=== PATIENT | male | born 1975 | race Caucasian/White ===

== ENCOUNTER 2022-04-03 09:39 | Inpatient (IN) | payer OTHER ==
[~2022-04-03] VITALS: Ht 177.8 cm; Wt 108.9 kg
[2022-04-03] MEDS ORDERED: ZOSYN 3.375GM +NS 50ML IVPB ONE (10:30)
[2022-04-03] MEDS ORDERED: 0.9%NACL 1000ML 1,000 ML IV ONE ×2 (10:30→11:30)
[2022-04-03 10:45] LABS: BASOPHILS % (AUTO) 0.3 % (0.0-5.0); EOSINOPHILS % (AUTO) 0.6 % (0.0-8.0); HEMATOCRIT 45.4 % (42-54); LYMPHOCYTES % (AUTO) 6.3 % (21.0-51.0); MEAN CORPUSCULAR HEMOGLOBIN 28.6 pg (27.0-33.0); MEAN CORPUSCULAR HGB CONC 34.8 g/dL (32.0-36.0); MEAN CORPUSCULAR VOLUME 82.2 fL (79-99); MONOCYTES % (AUTO) 7.5 % (3.0-13.0); NEUTROPHILS % (AUTO) 84.6 % (40.0-77.0); PLATELET COUNT (AUTO) 304 K/uL (130-400); RED BLOOD CELL COUNT(AUTO) 5.52 MIL/uL (4.50-6.20); RED CELL DISTRIBUTION WIDTH 11.9 % (11.0-15.5); WHITE BLOOD COUNT (AUTO) 22.5 K/uL (4.8-10.8)
[2022-04-03 10:56] LABS: CREATININE 0.8 mg/dL (0.5-1.5); POTASSIUM 4.1 mmol/L (3.5-5.1)
[2022-04-03] MEDS ORDERED: MORPHINE 4 MG SYG IM ONE (11:00)
[2022-04-03] MEDS ORDERED: MORPHINE 4 MG SYG IVP ONE (11:00)
[2022-04-03] MEDS ORDERED: ONDANSETRON 4MG INJ IVP ONE ×2 (11:00)
[2022-04-03 11:01] LABS: ALBUMIN 2.5 g/dL (3.5-5.0); TOTAL PROTEIN, SERUM 7.4 g/dL (6.0-8.3)
[2022-04-03 12:02] LABS: APPEARANCE,URINE CLOUDY (CLEAR); BILIRUBIN,URINE NEGATIVE (NEGATIVE); COLOR,URINE YELLOW (YELLOW); GLUCOSE, URINE (UA) >=1000 mg/dL (NEGATIVE); KETONES,URINE 10 mg/dL (NEGATIVE); LEUKOCYTE ESTERASE ,URINE 500 Leu/uL (NEGATIVE); NITRATE,URINE NEGATIVE (NEGATIVE); OCCULT BLOOD,URINE SMALL (NEGATIVE); PROTEIN,URINE 50 mg/dL (NEGATIVE); UROBILINOGEN,URINE 0.2 mg/dL (0.2-1.0)
[2022-04-03 12:12] LABS: BACTERIA,URINE MOD /HPF (None Seen); MUCUS,URINE RARE LPF (None Seen); RBC,URINE TNTC /HPF (0-1); SQUAMOUS EPITHELIAL CELL,UR RARE /HPF (0-2); WBC,URINE TNTC /HPF (0-1); YEAST,URINE BUDDING FEW /HPF (None Seen)
[2022-04-03] MEDS ORDERED: IOHEXOL-350 50ML VIAL IV ONE (12:12)
[2022-04-03] MEDS ORDERED: AMLODIPINE 5 MG TAB PO SCH (12:30)
[2022-04-03] MEDS ORDERED: ACETAMINOPHEN 500 MG TABLET PO PRN (12:30)
[2022-04-03] MEDS ORDERED: VANCOMYCIN PROTOCOL PER PHARMACY IV SCH (12:30)
[2022-04-03] MEDS ORDERED: VANCOMYCIN 2GM/500 ML BAG 500 ML IV ONE (12:30)
[2022-04-03] MEDS ORDERED: ONDANSETRON 4MG INJ IVP PRN (12:30)
[2022-04-03] MEDS ORDERED: IPRATROPIUM 0.5 MG/2.5 ML INH IH PRN (12:30)
[2022-04-03] MEDS: BUDESONIDE 0.5 MG/2 ML INH IH SCH ×2 (12:32→23:13)
[2022-04-03] MEDS: CEFEPIME HCL 2 GM VIAL IVP SCH ×2 (12:33→23:14)
[2022-04-03 12:36] LABS: INR 1.02 (0.85-1.15); PROTHROMBIN TIME 11.1 SEC (9.6-11.6)
[2022-04-03 12:37] LABS: PARTIAL THROMBOPLASTIN TIME 28.2 SEC (26.3-35.5)
[2022-04-03 12:42] LABS: HEMOGLOBIN A1C 11.7 % (4.0-6.0)
[2022-04-03] MEDS: INSULIN HUMULIN R 100 UNIT/ML 3ML SQ SCH ×2 (12:43→17:57)
[2022-04-03] MEDS ORDERED: COMPOUND IV REFRIGERATED 1 EACH IVSOLN MISC PRN (13:00)
[2022-04-03] MEDS ORDERED: MAGNESIUM 2GM PREMIX 50ML 50 ML IV SCH (13:30)
[2022-04-03] MEDS ORDERED: INSULIN HUMULIN R 100 UNIT/ML 3ML SQ ONE (14:00)
[2022-04-03] MEDS ORDERED: METRONIDAZOLE 500MG/100ML BAG 100 ML IVPB SCH (15:00)
[2022-04-03] MEDS: MORPHINE 2 MG SYG IVP PRN (15:10)
[2022-04-03] MEDS: 0.9%NACL 1000ML 1,000 ML IV SCH (15:15)
[2022-04-03 16:00] VITALS: BP 181/99
[2022-04-03 16:30] VITALS: BP 158/84
[2022-04-03 20:35] VITALS: BP 150/74
[2022-04-03] MEDS: AMLODIPINE 5 MG TAB PO SCH (20:47)
[2022-04-03] MEDS ORDERED: INSULIN GLARGINE 100 UNITS/ML 10 ML VIAL SQ SCH (21:00)
[2022-04-03] MEDS: KETOROLAC 15MG/ML VIAL (15MG/ML) IV PRN (23:14)
[2022-04-04] MEDS ORDERED: VANCOMYCIN 1.5 GM/250 ML BAG 250 ML IV SCH
[2022-04-04 00:04] VITALS: BP 151/71
[2022-04-04] MEDS: INSULIN HUMULIN R 100 UNIT/ML 3ML SQ SCH ×8 (01:15→21:11)
[2022-04-04 04:10] VITALS: BP 158/76
[2022-04-04] MEDS: 0.9%NACL 1000ML 1,000 ML IV SCH ×2 (05:37→15:10)
[2022-04-04 06:18] LABS: BASOPHILS % (AUTO) 0.2 % (0.0-5.0); EOSINOPHILS % (AUTO) 0.7 % (0.0-8.0); HEMATOCRIT 41.2 % (42-54); LYMPHOCYTES % (AUTO) 9.8 % (21.0-51.0); MEAN CORPUSCULAR HEMOGLOBIN 27.9 pg (27.0-33.0); MEAN CORPUSCULAR HGB CONC 33.7 g/dL (32.0-36.0); MEAN CORPUSCULAR VOLUME 82.7 fL (79-99); MONOCYTES % (AUTO) 8.4 % (3.0-13.0); NEUTROPHILS % (AUTO) 80.1 % (40.0-77.0); PLATELET COUNT (AUTO) 278 K/uL (130-400); RED BLOOD CELL COUNT(AUTO) 4.98 MIL/uL (4.50-6.20); RED CELL DISTRIBUTION WIDTH 12.1 % (11.0-15.5); WHITE BLOOD COUNT (AUTO) 16.8 K/uL (4.8-10.8)
[2022-04-04] MEDS: BUDESONIDE 0.5 MG/2 ML INH IH SCH ×2 (06:42→18:49)
[2022-04-04 06:45] LABS: CREATININE 0.7 mg/dL (0.5-1.5); MAGNESIUM 1.8 mg/dL (1.80-2.40); POTASSIUM 3.8 mmol/L (3.5-5.1); TOTAL PROTEIN, SERUM 6.1 g/dL (6.0-8.3)
[2022-04-04 08:00] VITALS: BP 152/74
[2022-04-04] MEDS: PANTOPRAZOLE 40 MG TAB DR PO SCH (09:21)
[2022-04-04] MEDS: Vitamin B Complex/Vit C/Folic Acid PO SCH (09:21)
[2022-04-04] MEDS: AMLODIPINE 5 MG TAB PO SCH ×2 (09:22→21:09)
[2022-04-04] MEDS: KETOROLAC 15MG/ML VIAL (15MG/ML) IV PRN (09:32)
[2022-04-04] MEDS: CEFEPIME HCL 2 GM VIAL IVP SCH ×2 (10:30→21:10)
[2022-04-04 11:30] VITALS: BP 142/74
[2022-04-04] MEDS: VANCOMYCIN 1.75 GM/250 ML BAG 250 ML IV SCH (15:03)
[2022-04-04 16:00] VITALS: BP 199/85
[2022-04-04] MEDS: HYDRALAZINE 20MG/ML VIAL IV PRN (18:08)
[2022-04-04 20:00] VITALS: BP 163/78
[2022-04-04] MEDS: INSULIN GLARGINE 100 UNITS/ML 10 ML VIAL SQ SCH (21:10)
[2022-04-04] MEDS: MORPHINE 2 MG SYG IVP PRN (21:30)
[2022-04-05] VITALS (20 sets, daily range): BP systolic 92–179; BP diastolic 56–97
[2022-04-05] MEDS: VANCOMYCIN 1.75 GM/250 ML BAG 250 ML IV SCH ×2 (01:03→15:47)
[2022-04-05] MEDS: 0.9%NACL 1000ML 1,000 ML IV SCH ×2 (03:20→17:50)
[2022-04-05] MEDS: MORPHINE 2 MG SYG IVP PRN (03:28)
[2022-04-05] MEDS: HYDRALAZINE 20MG/ML VIAL IV PRN (03:28)
[2022-04-05 04:24] LABS: BASOPHILS % (AUTO) 0.3 % (0.0-5.0); EOSINOPHILS % (AUTO) 0.6 % (0.0-8.0); HEMATOCRIT 40.1 % (42-54); LYMPHOCYTES % (AUTO) 12.4 % (21.0-51.0); MEAN CORPUSCULAR HEMOGLOBIN 28.4 pg (27.0-33.0); MEAN CORPUSCULAR HGB CONC 34.4 g/dL (32.0-36.0); MEAN CORPUSCULAR VOLUME 82.5 fL (79-99); MONOCYTES % (AUTO) 10.8 % (3.0-13.0); NEUTROPHILS % (AUTO) 74.9 % (40.0-77.0); PLATELET COUNT (AUTO) 288 K/uL (130-400); RED BLOOD CELL COUNT(AUTO) 4.86 MIL/uL (4.50-6.20)
[2022-04-05 05:03] LABS: ALBUMIN 1.9 g/dL (3.5-5.0); CREATININE 0.6 mg/dL (0.5-1.5); POTASSIUM 3.5 mmol/L (3.5-5.1); TOTAL PROTEIN, SERUM 6.3 g/dL (6.0-8.3)
[2022-04-05] MEDS: INSULIN HUMULIN R 100 UNIT/ML 3ML SQ SCH ×9 (06:35→20:48)
[2022-04-05] MEDS: BUDESONIDE 0.5 MG/2 ML INH IH SCH ×2 (06:42→18:39)
[2022-04-05] MEDS: PANTOPRAZOLE 40 MG TAB DR PO SCH (08:23)
[2022-04-05] MEDS: Vitamin B Complex/Vit C/Folic Acid PO SCH (08:23)
[2022-04-05] MEDS: AMLODIPINE 5 MG TAB PO SCH ×2 (09:00→19:58)
[2022-04-05] MEDS: CEFEPIME HCL 2 GM VIAL IVP SCH (12:48)
[2022-04-05] MEDS ORDERED: FAMOTIDINE 20MG VIAL IV ONE (16:03)
[2022-04-05] MEDS ORDERED: MIDAZOLAM HCL 1 MG/ML 2ML VIAL ONE ×2 (16:06→17:14)
[2022-04-05] MEDS ORDERED: PROPOFOL 10 MG/ML 20ML VIAL IV ONE (16:07)
[2022-04-05] MEDS ORDERED: GLYCOPYRROLATE 1 MG/5 ML SYRINGE ONE (16:07)
[2022-04-05] MEDS ORDERED: ROCURONIUM 10MG/1ML SYR 10 MG/ML ML ONE (16:07)
[2022-04-05] MEDS ORDERED: FENTANYL CITRATE PF 50 MCG/1 ML 2ML VIAL ONE (16:07)
[2022-04-05] MEDS ORDERED: NEOSTIGMINE 5MG/5ML SYR IV ONE (16:44)
[2022-04-05] MEDS ORDERED: MEPERIDINE-PF 25 MG/ML SYG ONE (17:09)
[2022-04-05] MEDS: LISINOPRIL 5 MG TABLET PO SCH (19:58)
[2022-04-05] MEDS: KETOROLAC 15MG/ML VIAL (15MG/ML) IV PRN (20:02)
[2022-04-05] MEDS: INSULIN GLARGINE 100 UNITS/ML 10 ML VIAL SQ SCH (20:47)
[2022-04-06] VITALS: BP 140/76
[2022-04-06] MEDS: CEFEPIME HCL 2 GM VIAL IVP SCH ×3 (00:18→15:01)
[2022-04-06 04:00] VITALS: BP 128/64
[2022-04-06 05:43] LABS: BASOPHILS % (AUTO) 0.5 % (0.0-5.0); EOSINOPHILS % (AUTO) 1.1 % (0.0-8.0); HEMATOCRIT 41.2 % (42-54); MEAN CORPUSCULAR HEMOGLOBIN 28.4 pg (27.0-33.0); MEAN CORPUSCULAR HGB CONC 34.7 g/dL (32.0-36.0); MEAN CORPUSCULAR VOLUME 81.9 fL (79-99); MONOCYTES % (AUTO) 10.1 % (3.0-13.0); NEUTROPHILS % (AUTO) 75.5 % (40.0-77.0); PLATELET COUNT (AUTO) 287 K/uL (130-400); RED BLOOD CELL COUNT(AUTO) 5.03 MIL/uL (4.50-6.20); RED CELL DISTRIBUTION WIDTH 12.2 % (11.0-15.5); WHITE BLOOD COUNT (AUTO) 13.1 K/uL (4.8-10.8)
[2022-04-06] MEDS: INSULIN HUMULIN R 100 UNIT/ML 3ML SQ SCH ×7 (06:30→20:30)
[2022-04-06] MEDS: BUDESONIDE 0.5 MG/2 ML INH IH SCH ×4 (06:56→23:53)
[2022-04-06] MEDS: 0.9%NACL 1000ML 1,000 ML IV SCH ×2 (07:10→20:33)
[2022-04-06 07:57] LABS: ALBUMIN 2.1 g/dL (3.5-5.0); CREATININE 0.8 mg/dL (0.5-1.5); POTASSIUM 3.6 mmol/L (3.5-5.1); TOTAL PROTEIN, SERUM 6.7 g/dL (6.0-8.3)
[2022-04-06 08:00] VITALS: BP 164/90
[2022-04-06] MEDS: VANCOMYCIN 1.25 GM/250 ML BAG 250 ML IV SCH ×2 (08:00)
[2022-04-06] MEDS: MORPHINE 2 MG SYG IVP PRN ×2 (08:27→20:18)
[2022-04-06] MEDS: Vitamin B Complex/Vit C/Folic Acid PO SCH (09:25)
[2022-04-06] MEDS: PANTOPRAZOLE 40 MG TAB DR PO SCH (09:25)
[2022-04-06] MEDS: AMLODIPINE 5 MG TAB PO SCH ×2 (09:26→20:18)
[2022-04-06] MEDS: LISINOPRIL 5 MG TABLET PO SCH ×2 (09:26→20:18)
[2022-04-06 12:00] VITALS: BP 160/83
[2022-04-06] MEDS ORDERED: POTASSIUM CHLORIDE 20MEQ/100ML 100 ML IV PRN (13:30)
[2022-04-06] MEDS ORDERED: POTASSIUM CHLORIDE 10% ELIXIR 20 MEQ/15 ML UDCUP PO PRN (13:30)
[2022-04-06] MEDS ORDERED: LIDOCAINE HCL-MPF 1% 2ML VIAL IV PRN (13:30)
[2022-04-06 16:00] VITALS: BP 159/83
[2022-04-06] MEDS: KCL 20 MEQ ERTAB PO PRN ×2 (16:06→18:45)
[2022-04-06 20:00] VITALS: BP 155/91
[2022-04-06] MEDS: INSULIN GLARGINE 100 UNITS/ML 10 ML VIAL SQ SCH (20:31)
[2022-04-06] MEDS: VANCOMYCIN 1.5 GM/250 ML BAG 250 ML IV SCH (22:35)
[2022-04-06] MEDS ORDERED: DIPHENHYDRAMINE HCL 25 MG CAPSULE PO ONE (23:30)
[2022-04-07] MEDS: CEFEPIME HCL 2 GM VIAL IVP SCH ×2 (01:11→11:28)
[2022-04-07] MEDS: VANCOMYCIN 1.5 GM/250 ML BAG 250 ML IV SCH ×3 (05:56→23:06)
[2022-04-07] MEDS: INSULIN HUMULIN R 100 UNIT/ML 3ML SQ SCH ×7 (05:58→20:00)
[2022-04-07 08:00] VITALS: BP 156/91
[2022-04-07] MEDS: AMLODIPINE 5 MG TAB PO SCH ×2 (09:03→20:01)
[2022-04-07] MEDS: Vitamin B Complex/Vit C/Folic Acid PO SCH (09:03)
[2022-04-07] MEDS: LISINOPRIL 5 MG TABLET PO SCH ×2 (09:03→20:01)
[2022-04-07] MEDS: PANTOPRAZOLE 40 MG TAB DR PO SCH (09:03)
[2022-04-07] MEDS: 0.9%NACL 1000ML 1,000 ML IV SCH ×2 (09:06→20:01)
[2022-04-07 09:43] LABS: BASOPHILS % (AUTO) 0.3 % (0.0-5.0); EOSINOPHILS % (AUTO) 1.6 % (0.0-8.0); HEMATOCRIT 40.8 % (42-54); LYMPHOCYTES % (AUTO) 17.4 % (21.0-51.0); MEAN CORPUSCULAR HGB CONC 33.3 g/dL (32.0-36.0); MONOCYTES % (AUTO) 7.7 % (3.0-13.0); NEUTROPHILS % (AUTO) 71.6 % (40.0-77.0); PLATELET COUNT (AUTO) 291 K/uL (130-400); RED BLOOD CELL COUNT(AUTO) 4.86 MIL/uL (4.50-6.20); RED CELL DISTRIBUTION WIDTH 12.3 % (11.0-15.5); WHITE BLOOD COUNT (AUTO) 9.6 K/uL (4.8-10.8)
[2022-04-07 10:00] LABS: CREATININE 0.8 mg/dL (0.5-1.5); POTASSIUM 3.7 mmol/L (3.5-5.1); TOTAL PROTEIN, SERUM 6.2 g/dL (6.0-8.3)
[2022-04-07 11:33] VITALS: BP 175/97
[2022-04-07] MEDS: BUDESONIDE 0.5 MG/2 ML INH IH SCH (11:53)
[2022-04-07 16:00] VITALS: BP 164/90
[2022-04-07] MEDS: INSULIN GLARGINE 100 UNITS/ML 10 ML VIAL SQ SCH (19:57)
[2022-04-07 20:00] VITALS: BP 171/95
[2022-04-07] MEDS: MORPHINE 2 MG SYG IVP PRN (20:01)
[2022-04-08] VITALS (7 sets, daily range): BP systolic 150–167; BP diastolic 68–104
[2022-04-08] MEDS: HYDRALAZINE 20MG/ML VIAL IV PRN (00:01)
[2022-04-08] MEDS: CEFEPIME HCL 2 GM VIAL IVP SCH ×3 (00:49→23:22)
[2022-04-08] MEDS: INSULIN HUMULIN R 100 UNIT/ML 3ML SQ SCH ×7 (06:05→20:26)
[2022-04-08] MEDS: VANCOMYCIN 1.5 GM/250 ML BAG 250 ML IV SCH ×3 (06:07→21:29)
[2022-04-08] MEDS: LISINOPRIL 5 MG TABLET PO SCH ×2 (08:54→19:57)
[2022-04-08] MEDS: AMLODIPINE 5 MG TAB PO SCH ×2 (08:54→19:56)
[2022-04-08] MEDS: Vitamin B Complex/Vit C/Folic Acid PO SCH (08:54)
[2022-04-08] MEDS: PANTOPRAZOLE 40 MG TAB DR PO SCH (08:54)
[2022-04-08 15:02] LABS: BASOPHILS % (AUTO) 0.5 % (0.0-5.0); EOSINOPHILS % (AUTO) 1.2 % (0.0-8.0); HEMATOCRIT 43.3 % (42-54); LYMPHOCYTES % (AUTO) 16.7 % (21.0-51.0); MEAN CORPUSCULAR HEMOGLOBIN 28.1 pg (27.0-33.0); MEAN CORPUSCULAR HGB CONC 33.5 g/dL (32.0-36.0); MEAN CORPUSCULAR VOLUME 83.9 fL (79-99); MONOCYTES % (AUTO) 7.1 % (3.0-13.0); NEUTROPHILS % (AUTO) 73.6 % (40.0-77.0); PLATELET COUNT (AUTO) 350 K/uL (130-400); RED BLOOD CELL COUNT(AUTO) 5.16 MIL/uL (4.50-6.20); RED CELL DISTRIBUTION WIDTH 12.3 % (11.0-15.5)
[2022-04-08 15:17] LABS: ALBUMIN 2.3 g/dL (3.5-5.0); CREATININE 0.7 mg/dL (0.5-1.5); POTASSIUM 3.8 mmol/L (3.5-5.1); TOTAL PROTEIN, SERUM 6.8 g/dL (6.0-8.3)
[2022-04-08] MEDS: SODIUM HYPOCHLORITE 0.25% [HALF STRENGTH] 473 ML TOPICAL SOLN TP SCH (19:58)
[2022-04-08] MEDS: INSULIN GLARGINE 100 UNITS/ML 10 ML VIAL SQ SCH (20:26)
[2022-04-08] MEDS ORDERED: MORPHINE 2 MG SYG ONE (20:27)
[2022-04-08] MEDS ORDERED: MORPHINE 2 MG SYG IVP PRN (20:30)
[2022-04-09 00:15] VITALS: BP 174/94
[2022-04-09] MEDS: 0.9%NACL 1000ML 1,000 ML IV SCH (01:50)
[2022-04-09 04:42] VITALS: BP 137/79
[2022-04-09] MEDS: INSULIN HUMULIN R 100 UNIT/ML 3ML SQ SCH ×4 (05:40→12:14)
[2022-04-09] MEDS: VANCOMYCIN 1.5 GM/250 ML BAG 250 ML IV SCH (06:00)
[2022-04-09 08:00] VITALS: BP 148/93
[2022-04-09] MEDS ORDERED: INSULIN GLARGINE 100 UNITS/ML 10 ML VIAL SQ SCH (09:00)
[2022-04-09] MEDS: PANTOPRAZOLE 40 MG TAB DR PO SCH (09:47)
[2022-04-09] MEDS: Vitamin B Complex/Vit C/Folic Acid PO SCH (09:47)
[2022-04-09] MEDS: LISINOPRIL 5 MG TABLET PO SCH (09:48)
[2022-04-09] MEDS: AMLODIPINE 5 MG TAB PO SCH (09:48)
[2022-04-09] MEDS: SODIUM HYPOCHLORITE 0.25% [HALF STRENGTH] 473 ML TOPICAL SOLN TP SCH (09:49)
[2022-04-09 11:24] VITALS: BP 169/93
[2022-04-09 11:49] LABS: BASOPHILS % (AUTO) 0.3 % (0.0-5.0); EOSINOPHILS % (AUTO) 1.3 % (0.0-8.0); HEMATOCRIT 42.7 % (42-54); LYMPHOCYTES % (AUTO) 14.6 % (21.0-51.0); MEAN CORPUSCULAR HEMOGLOBIN 27.7 pg (27.0-33.0); MEAN CORPUSCULAR VOLUME 83.9 fL (79-99); MONOCYTES % (AUTO) 6.9 % (3.0-13.0); NEUTROPHILS % (AUTO) 75.7 % (40.0-77.0); PLATELET COUNT (AUTO) 323 K/uL (130-400); RED BLOOD CELL COUNT(AUTO) 5.09 MIL/uL (4.50-6.20); RED CELL DISTRIBUTION WIDTH 12.3 % (11.0-15.5); WHITE BLOOD COUNT (AUTO) 11.8 K/uL (4.8-10.8)
[2022-04-09 12:02] LABS: ALBUMIN 2.4 g/dL (3.5-5.0); CREATININE 0.8 mg/dL (0.5-1.5); POTASSIUM 3.9 mmol/L (3.5-5.1); TOTAL PROTEIN, SERUM 6.9 g/dL (6.0-8.3)
[2022-04-09] MEDS: CEFEPIME HCL 2 GM VIAL IVP SCH (12:11)
[2022-04-09] MEDS ORDERED: LISI5TAB21 PO (12:30)
[2022-04-09] MEDS ORDERED: PANT40TA PO (12:30)
[2022-04-09] MEDS ORDERED: LANC1KIT39 MC (12:30)
[2022-04-09] MEDS ORDERED: INSU10VI3 SQ (12:30)
== END 2022-04-09 14:15 | disposition home or self-care (01) | DRG 854 ==
LOC: EDH 09:39 → EDHIP 09:40 → 4DH 14:40
PROVIDERS: ADMIT Internal Medicine; ATTEND Internal Medicine
PROC: 0JB70ZZ Excision of Back Subcutaneous Tissue and Fascia, Open Approach (ICD-10-PCS; principal; 2022-04-05 16:06)
DX: A41.9 Sepsis, unspecified organism (principal); E11.52 Type 2 diabetes mellitus with diabetic peripheral angiopathy with gangrene; L02.212 Cutaneous abscess of back [any part, except buttock and flank]; L03.312 Cellulitis of back [any part except buttock and flank]; Z20.822 Contact with and (suspected) exposure to COVID-19; I16.0 Hypertensive urgency; E11.65 Type 2 diabetes mellitus with hyperglycemia; I10 Essential (primary) hypertension; E66.01 Morbid (severe) obesity due to excess calories; B95.62 Methicillin resistant Staphylococcus aureus infection as the cause of diseases classified elsewhere; F17.210 Nicotine dependence, cigarettes, uncomplicated; Z53.20 Procedure and treatment not carried out because of patient's decision for unspecified reasons; Z91.199 Patient's noncompliance with other medical treatment and regimen due to unspecified reason; Z90.49 Acquired absence of other specified parts of digestive tract; Z79.899 Other long term (current) drug therapy; Z68.34 Body mass index [BMI] 34.0-34.9, adult
CPT/HCPCS: 36415; 72130; 80053; 80202; 81001; 82010; 82948; 83036; 83605; 83735; 84145; 84443; 85025; 85610; 85651; 85730; 86140; 87040; 87070; 87076; 87077; 87088; 87186; 87635; 87804; 94640; 94664; A6266; G0378; J0360; J0692; J1815; J1885; J2175; J2250; J2270; J2405; J2543; J2704; J2710; J3010; J3475; J3490; J7030; Q0163; Q9967

== ENCOUNTER → 2022-04-11 | Outpatient (CLI) | payer OTHER ==
[~2022-04-11] MED LIST: INSU10VI3 SQ; LANC1KIT39 MC; LIDOCAINE HCL 4% LTA SOL 4 ML VIAL TP ONE; LISI5TAB21 PO; PANT40TA PO
== END | disposition home or self-care (01) ==
LOC: WHH 13:22
PROVIDERS: ATTEND Family Medicine
DX: T81.89XA Other complications of procedures, not elsewhere classified, initial encounter (principal); S21.209A Unspecified open wound of unspecified back wall of thorax without penetration into thoracic cavity, initial encounter; E11.65 Type 2 diabetes mellitus with hyperglycemia; I10 Essential (primary) hypertension; E66.9 Obesity, unspecified; Z68.35 Body mass index [BMI] 35.0-35.9, adult; X58.XXXA Exposure to other specified factors, initial encounter; Y93.89 Activity, other specified; Y92.89 Other specified places as the place of occurrence of the external cause; Y99.8 Other external cause status; Y92.238 Other place in hospital as the place of occurrence of the external cause; Y83.8 Other surgical procedures as the cause of abnormal reaction of the patient, or of later complication, without mention of misadventure at the time of the procedure
CPT/HCPCS: 11042; A4450

== ENCOUNTER → 2022-04-15 | Outpatient (CLI) | payer OTHER | END | disposition home or self-care (01) | LOC: WHH 13:58 | PROVIDERS: ATTEND Family Medicine | DX: T81.89XD Other complications of procedures, not elsewhere classified, subsequent encounter (principal); S21.209D Unspecified open wound of unspecified back wall of thorax without penetration into thoracic cavity, subsequent encounter; E11.65 Type 2 diabetes mellitus with hyperglycemia; I10 Essential (primary) hypertension; E66.9 Obesity, unspecified; Z68.35 Body mass index [BMI] 35.0-35.9, adult; X58.XXXD Exposure to other specified factors, subsequent encounter; Y83.8 Other surgical procedures as the cause of abnormal reaction of the patient, or of later complication, without mention of misadventure at the time of the procedure | CPT/HCPCS: 99211 ==

== ENCOUNTER → 2022-04-18 | Outpatient (CLI) | payer OTHER ==
[~2022-04-18] MED LIST changes: +HONEY 1 APPL/ML TUBE TP ONE
== END | disposition home or self-care (01) ==
LOC: WHH 13:36
PROVIDERS: ATTEND Family Medicine
DX: T81.89XD Other complications of procedures, not elsewhere classified, subsequent encounter (principal); S21.209D Unspecified open wound of unspecified back wall of thorax without penetration into thoracic cavity, subsequent encounter; E11.65 Type 2 diabetes mellitus with hyperglycemia; I10 Essential (primary) hypertension; E66.9 Obesity, unspecified; Z68.35 Body mass index [BMI] 35.0-35.9, adult; Y83.8 Other surgical procedures as the cause of abnormal reaction of the patient, or of later complication, without mention of misadventure at the time of the procedure; X58.XXXD Exposure to other specified factors, subsequent encounter
CPT/HCPCS: 11042; A6197

== ENCOUNTER → 2022-04-22 | Outpatient (CLI) | payer OTHER ==
[~2022-04-22] MED LIST changes: -HONEY 1 APPL/ML TUBE TP ONE; -LIDOCAINE HCL 4% LTA SOL 4 ML VIAL TP ONE
== END | disposition home or self-care (01) ==
LOC: WHH 14:05
PROVIDERS: ATTEND Family Medicine
DX: T81.89XD Other complications of procedures, not elsewhere classified, subsequent encounter (principal); S21.209D Unspecified open wound of unspecified back wall of thorax without penetration into thoracic cavity, subsequent encounter; E11.65 Type 2 diabetes mellitus with hyperglycemia; I10 Essential (primary) hypertension; E66.9 Obesity, unspecified; Z68.35 Body mass index [BMI] 35.0-35.9, adult; F17.290 Nicotine dependence, other tobacco product, uncomplicated; X58.XXXD Exposure to other specified factors, subsequent encounter; Y83.8 Other surgical procedures as the cause of abnormal reaction of the patient, or of later complication, without mention of misadventure at the time of the procedure
CPT/HCPCS: 99211; A6197

== ENCOUNTER → 2022-04-25 | Outpatient (CLI) | payer OTHER | END | disposition home or self-care (01) | LOC: WHH 14:13 | PROVIDERS: ATTEND Family Medicine | DX: T81.89XD Other complications of procedures, not elsewhere classified, subsequent encounter (principal); E11.65 Type 2 diabetes mellitus with hyperglycemia; I10 Essential (primary) hypertension; E66.9 Obesity, unspecified; Z68.35 Body mass index [BMI] 35.0-35.9, adult; Y83.8 Other surgical procedures as the cause of abnormal reaction of the patient, or of later complication, without mention of misadventure at the time of the procedure | CPT/HCPCS: 11042; 97605 ==

== ENCOUNTER → 2022-04-29 | Outpatient (CLI) | payer OTHER | END | disposition home or self-care (01) | LOC: WHH 14:28 | PROVIDERS: ATTEND Family Medicine | DX: T81.89XD Other complications of procedures, not elsewhere classified, subsequent encounter (principal); E11.622 Type 2 diabetes mellitus with other skin ulcer; L98.422 Non-pressure chronic ulcer of back with fat layer exposed; E11.65 Type 2 diabetes mellitus with hyperglycemia; E11.51 Type 2 diabetes mellitus with diabetic peripheral angiopathy without gangrene; M79.7 Fibromyalgia; I10 Essential (primary) hypertension; E66.01 Morbid (severe) obesity due to excess calories; F17.210 Nicotine dependence, cigarettes, uncomplicated; Z68.35 Body mass index [BMI] 35.0-35.9, adult; Z90.49 Acquired absence of other specified parts of digestive tract; Y83.8 Other surgical procedures as the cause of abnormal reaction of the patient, or of later complication, without mention of misadventure at the time of the procedure | CPT/HCPCS: 97605 ==

== ENCOUNTER → 2022-05-02 | Outpatient (CLI) | payer OTHER | END | disposition home or self-care (01) | LOC: WHH 14:33 | PROVIDERS: ATTEND Family Medicine | DX: T81.89XD Other complications of procedures, not elsewhere classified, subsequent encounter (principal); E11.65 Type 2 diabetes mellitus with hyperglycemia; I10 Essential (primary) hypertension; E66.9 Obesity, unspecified; Z68.35 Body mass index [BMI] 35.0-35.9, adult; Y83.8 Other surgical procedures as the cause of abnormal reaction of the patient, or of later complication, without mention of misadventure at the time of the procedure | CPT/HCPCS: 97605; 99214 ==

== ENCOUNTER → 2022-05-06 | Outpatient (CLI) | payer OTHER | END | disposition home or self-care (01) | LOC: WHH 14:14 | PROVIDERS: ATTEND Family Medicine | DX: T81.89XD Other complications of procedures, not elsewhere classified, subsequent encounter (principal); S21.209D Unspecified open wound of unspecified back wall of thorax without penetration into thoracic cavity, subsequent encounter; E11.65 Type 2 diabetes mellitus with hyperglycemia; I10 Essential (primary) hypertension; E66.9 Obesity, unspecified; Z68.35 Body mass index [BMI] 35.0-35.9, adult; X58.XXXD Exposure to other specified factors, subsequent encounter; Y83.8 Other surgical procedures as the cause of abnormal reaction of the patient, or of later complication, without mention of misadventure at the time of the procedure | CPT/HCPCS: 97605 ==

== ENCOUNTER → 2022-05-09 | Outpatient (CLI) | payer OTHER ==
[~2022-05-09] MED LIST changes: +LIDOCAINE HCL 4% LTA SOL 4 ML VIAL TP ONE
== END | disposition home or self-care (01) ==
LOC: WHH 14:22
PROVIDERS: ATTEND Family Medicine
DX: T81.89XD Other complications of procedures, not elsewhere classified, subsequent encounter (principal); S21.209D Unspecified open wound of unspecified back wall of thorax without penetration into thoracic cavity, subsequent encounter; E11.65 Type 2 diabetes mellitus with hyperglycemia; I10 Essential (primary) hypertension; E66.9 Obesity, unspecified; Z68.35 Body mass index [BMI] 35.0-35.9, adult; X58.XXXD Exposure to other specified factors, subsequent encounter; Y83.8 Other surgical procedures as the cause of abnormal reaction of the patient, or of later complication, without mention of misadventure at the time of the procedure
CPT/HCPCS: 97605

== ENCOUNTER → 2022-05-13 | Outpatient (CLI) | payer OTHER ==
[~2022-05-13] MED LIST changes: -LIDOCAINE HCL 4% LTA SOL 4 ML VIAL TP ONE
== END | disposition home or self-care (01) ==
LOC: WHH 14:10
PROVIDERS: ATTEND Family Medicine
DX: T81.89XD Other complications of procedures, not elsewhere classified, subsequent encounter (principal); E11.51 Type 2 diabetes mellitus with diabetic peripheral angiopathy without gangrene; E11.65 Type 2 diabetes mellitus with hyperglycemia; I10 Essential (primary) hypertension; E66.9 Obesity, unspecified; F17.290 Nicotine dependence, other tobacco product, uncomplicated; Z68.35 Body mass index [BMI] 35.0-35.9, adult; Y83.8 Other surgical procedures as the cause of abnormal reaction of the patient, or of later complication, without mention of misadventure at the time of the procedure
CPT/HCPCS: 97605

== ENCOUNTER → 2022-05-16 | Outpatient (CLI) | payer OTHER ==
[~2022-05-16] MED LIST changes: +LIDOCAINE HCL 4% LTA SOL 4 ML VIAL TP ONE
== END | disposition home or self-care (01) ==
LOC: WHH 14:14
PROVIDERS: ATTEND Nurse Practitioner Family
DX: T81.89XD Other complications of procedures, not elsewhere classified, subsequent encounter (principal); S21.209D Unspecified open wound of unspecified back wall of thorax without penetration into thoracic cavity, subsequent encounter; E11.622 Type 2 diabetes mellitus with other skin ulcer; L98.422 Non-pressure chronic ulcer of back with fat layer exposed; E11.65 Type 2 diabetes mellitus with hyperglycemia; I10 Essential (primary) hypertension; M79.7 Fibromyalgia; E66.01 Morbid (severe) obesity due to excess calories; Z68.35 Body mass index [BMI] 35.0-35.9, adult; Z90.49 Acquired absence of other specified parts of digestive tract; X58.XXXD Exposure to other specified factors, subsequent encounter; Y83.8 Other surgical procedures as the cause of abnormal reaction of the patient, or of later complication, without mention of misadventure at the time of the procedure
CPT/HCPCS: 11042; 97605

== ENCOUNTER → 2022-05-23 | Outpatient (CLI) | payer OTHER ==
[~2022-05-23] MED LIST changes: -LIDOCAINE HCL 4% LTA SOL 4 ML VIAL TP ONE
== END | disposition home or self-care (01) ==
LOC: WHH 14:19
PROVIDERS: ATTEND Nurse Practitioner Family
DX: T81.89XD Other complications of procedures, not elsewhere classified, subsequent encounter (principal); S21.209D Unspecified open wound of unspecified back wall of thorax without penetration into thoracic cavity, subsequent encounter; E11.65 Type 2 diabetes mellitus with hyperglycemia; I10 Essential (primary) hypertension; E66.9 Obesity, unspecified; Z68.35 Body mass index [BMI] 35.0-35.9, adult; X58.XXXD Exposure to other specified factors, subsequent encounter; Y83.8 Other surgical procedures as the cause of abnormal reaction of the patient, or of later complication, without mention of misadventure at the time of the procedure
CPT/HCPCS: 11042

== ENCOUNTER 2022-06-02 12:51 | Emergency (ER) | payer OTHER ==
[~2022-06-02] VITALS: Ht 177.8 cm; Wt 113.4 kg
[2022-06-02 13:24] LABS: BASOPHILS % (AUTO) 0.8 % (0.0-5.0); EOSINOPHILS % (AUTO) 1.4 % (0.0-8.0); HEMATOCRIT 45.2 % (42-54); LYMPHOCYTES % (AUTO) 22.3 % (21.0-51.0); MEAN CORPUSCULAR HEMOGLOBIN 28.5 pg (27.0-33.0); MEAN CORPUSCULAR HGB CONC 34.3 g/dL (32.0-36.0); MEAN CORPUSCULAR VOLUME 83.2 fL (79-99); MONOCYTES % (AUTO) 6.7 % (3.0-13.0); NEUTROPHILS % (AUTO) 68.4 % (40.0-77.0); PLATELET COUNT (AUTO) 230 K/uL (130-400); RED BLOOD CELL COUNT(AUTO) 5.43 MIL/uL (4.50-6.20); RED CELL DISTRIBUTION WIDTH 13.8 % (11.0-15.5); WHITE BLOOD COUNT (AUTO) 9.3 K/uL (4.8-10.8)
[2022-06-02 13:27] VITALS: BP 146/79
[2022-06-02] MEDS ORDERED: MECLIZINE HCL 25 MG TABLET PO ONE (13:30)
[2022-06-02 13:32] LABS: CREATININE 0.8 mg/dL (0.5-1.5); POTASSIUM 4.8 mmol/L (3.5-5.1)
[2022-06-02 13:37] LABS: ALBUMIN 3.4 g/dL (3.5-5.0)
[2022-06-02] MEDS ORDERED: ONDANSETRON 4MG INJ IVP ONE (14:00)
[2022-06-02] MEDS ORDERED: ONDA4TAB10 PO ×2 (14:03)
[2022-06-02] MEDS ORDERED: MECL-160 PO ×2 (14:03)
== END 2022-06-02 14:27 | disposition home or self-care (01) ==
LOC: EDH 12:51
DX: R11.0 Nausea (principal); R42 Dizziness and giddiness; R11.10 Vomiting, unspecified; I10 Essential (primary) hypertension; E11.9 Type 2 diabetes mellitus without complications; Z79.899 Other long term (current) drug therapy; Z90.49 Acquired absence of other specified parts of digestive tract
CPT/HCPCS: 99285; 96374; 71045; 84484; 80053; 83880; 85025; 36415; 93005; J2405

== ENCOUNTER 2022-06-21 19:11 | Inpatient (IN) | payer OTHER ==
[~2022-06-21] VITALS: Ht 172.7 cm; Wt 116.2 kg
[~2022-06-21 19:11] MED LIST changes: +MECL-160 PO; +ONDA4TAB10 PO
[2022-06-21 20:16] LABS: HEMATOCRIT 47.4 % (42-54); MEAN CORPUSCULAR HEMOGLOBIN 28.7 pg (27.0-33.0); MEAN CORPUSCULAR HGB CONC 34.6 g/dL (32.0-36.0); RED BLOOD CELL COUNT(AUTO) 5.71 MIL/uL (4.50-6.20); RED CELL DISTRIBUTION WIDTH 13.7 % (11.0-15.5); WHITE BLOOD COUNT (AUTO) 10.3 K/uL (4.8-10.8)
[2022-06-21 20:30] LABS: CREATININE 0.8 mg/dL (0.5-1.5); POTASSIUM 4.3 mmol/L (3.5-5.1)
[2022-06-21] MEDS ORDERED: MECLIZINE HCL 25 MG TABLET PO ONE (20:30)
[2022-06-21 20:36] LABS: ALBUMIN 3.8 g/dL (3.5-5.0); TOTAL PROTEIN, SERUM 7.5 g/dL (6.0-8.3)
[2022-06-21] MEDS ORDERED: MECLIZINE HCL 25 MG TABLET ONE (20:37)
[2022-06-21] MEDS: LABETALOL 20MG SYG IV ONE ×2 (20:40→20:57)
[2022-06-21 20:56] LABS: APPEARANCE,URINE CLOUDY (CLEAR); BILIRUBIN,URINE NEGATIVE (NEGATIVE); COLOR,URINE LIGHT-YELLOW (YELLOW); GLUCOSE, URINE (UA) >=1000 mg/dL (NEGATIVE); KETONES,URINE NEGATIVE (NEGATIVE); LEUKOCYTE ESTERASE ,URINE 500 Leu/uL (NEGATIVE); NITRATE,URINE NEGATIVE (NEGATIVE); PH,URINE 5.5 (5.0-8.0); PROTEIN,URINE 70 mg/dL (NEGATIVE); UROBILINOGEN,URINE 0.2 mg/dL (0.2-1.0)
[2022-06-21] MEDS ORDERED: INSULIN HUMULIN R 100 UNIT/ML 3ML IV ONE (21:00)
[2022-06-21] MEDS ORDERED: LABETALOL 20MG VIAL IV ONE ×2 (21:00→22:30)
[2022-06-21] MEDS ORDERED: 0.9%NACL 1000ML 1,000 ML IV ONE (21:00)
[2022-06-21 21:09] LABS: BACTERIA,URINE FEW /HPF (None Seen); MUCUS,URINE RARE LPF (None Seen); OTHER CASTS, URINE 1 /LPF (None Seen); RBC,URINE 26-50 /HPF (0-1); SQUAMOUS EPITHELIAL CELL,UR RARE /HPF (0-2); WBC,URINE 51-100 /HPF (0-1); YEAST,URINE BUDDING FEW /HPF (None Seen)
[2022-06-21] MEDS ORDERED: IOHEXOL 350 MG/ML 100ML INFUS..BTL IV ONE (22:06)
[2022-06-21] MEDS ORDERED: POTASSIUM CHLORIDE 10% ELIXIR 20 MEQ/15 ML UDCUP PO PRN (23:00)
[2022-06-21] MEDS ORDERED: MORPHINE 2 MG SYG IV PRN (23:00)
[2022-06-21] MEDS ORDERED: POTASSIUM CHLORIDE 20MEQ/100ML 100 ML IV PRN (23:00)
[2022-06-21] MEDS ORDERED: ONDANSETRON 4MG INJ IV PRN (23:00)
[2022-06-21] MEDS ORDERED: 0.9%NACL 1000ML 1,000 ML IV SCH (23:00)
[2022-06-21] MEDS ORDERED: KCL 20 MEQ ERTAB PO PRN (23:00)
[2022-06-21] MEDS ORDERED: MORPHINE 4 MG SYG IV PRN (23:00)
[2022-06-21] MEDS ORDERED: MAGNESIUM 2GM PREMIX 50ML 50 ML IV PRN (23:00)
[2022-06-21] MEDS ORDERED: ACETAMINOPHEN 325 MG TAB PO PRN ×2 (23:00)
[2022-06-21 23:13] LABS: AMPHET/METH SCREEN,URINE NEGATIVE (NEGATIVE); BARBITURATE SCREEN, URINE NEGATIVE (NEGATIVE); BENZODIAZEPINES SCREEN,URINE NEGATIVE (NEGATIVE); CANNABINOID SCREEN,URINE NEGATIVE (NEGATIVE); COCAINE SCREEN,URINE NEGATIVE (NEGATIVE); OPIATE SCREEN,URINE NEGATIVE (NEGATIVE); PHENCYCLIDINE SCREEN,URINE NEGATIVE (NEGATIVE)
[2022-06-21] MEDS: CEFTRIAXONE 1G VIAL IV SCH (23:42)
[2022-06-22] VITALS (7 sets, daily range): BP systolic 123–183; BP diastolic 76–101
[2022-06-22] MEDS ORDERED: ASPIRIN 81MG CHEW TAB PO ONE
[2022-06-22] MEDS: CLONIDINE HCL 0.1 MG TABLET PO PRN ×2 (00:25→22:59)
[2022-06-22] MEDS ORDERED: INSULIN HUMULIN R 100 UNIT/ML 3ML SQ SCH (07:30)
[2022-06-22 09:31] LABS: BASOPHILS % (AUTO) 0.4 % (0.0-5.0); EOSINOPHILS % (AUTO) 1.1 % (0.0-8.0); HEMATOCRIT 44.1 % (42-54); LYMPHOCYTES % (AUTO) 25.9 % (21.0-51.0); MEAN CORPUSCULAR HEMOGLOBIN 28.5 pg (27.0-33.0); MEAN CORPUSCULAR HGB CONC 34.2 g/dL (32.0-36.0); MEAN CORPUSCULAR VOLUME 83.2 fL (79-99); MONOCYTES % (AUTO) 7.2 % (3.0-13.0); NEUTROPHILS % (AUTO) 64.9 % (40.0-77.0); PLATELET COUNT (AUTO) 194 K/uL (130-400); RED CELL DISTRIBUTION WIDTH 13.7 % (11.0-15.5); WHITE BLOOD COUNT (AUTO) 9.4 K/uL (4.8-10.8)
[2022-06-22 09:41] LABS: CREATININE 0.8 mg/dL (0.5-1.5); MAGNESIUM 1.6 mg/dL (1.80-2.40); PHOSPHORUS 3.6 mg/dL (2.5-4.9); POTASSIUM 3.8 mmol/L (3.5-5.1)
[2022-06-22 09:59] LABS: HEMOGLOBIN A1C 11.9 % (4.0-6.0)
[2022-06-22] MEDS: ENOXAPARIN SODIUM 40 MG/0.4 ML SYRINGE SQ SCH (10:08)
[2022-06-22] MEDS: FAMOTIDINE 20MG TAB PO SCH ×2 (10:08→19:51)
[2022-06-22] MEDS ORDERED: ALPRAZOLAM 0.5 MG TABLET PO ONE (11:30)
[2022-06-22] MEDS: INSULIN HUMULIN R 100 UNIT/ML 3ML SQ SCH ×5 (11:55→19:56)
[2022-06-22] MEDS ORDERED: MECLIZINE HCL 25 MG TABLET PO PRN (17:30)
[2022-06-22] MEDS: LISINOPRIL 10 MG TABLET PO SCH (19:51)
[2022-06-22] MEDS: CEFTRIAXONE 1G VIAL IV SCH (19:51)
[2022-06-22] MEDS ORDERED: INSULIN GLARGINE 100 UNITS/ML 10 ML VIAL SQ SCH (21:00)
[2022-06-23] VITALS: BP 162/88
[2022-06-23 04:46] VITALS: BP 142/95
[2022-06-23 04:56] LABS: HEMATOCRIT 46.4 % (42-54); MEAN CORPUSCULAR HEMOGLOBIN 28.3 pg (27.0-33.0); MEAN CORPUSCULAR HGB CONC 33.2 g/dL (32.0-36.0); MEAN CORPUSCULAR VOLUME 85.3 fL (79-99); RED BLOOD CELL COUNT(AUTO) 5.44 MIL/uL (4.50-6.20); RED CELL DISTRIBUTION WIDTH 13.9 % (11.0-15.5); WHITE BLOOD COUNT (AUTO) 10.4 K/uL (4.8-10.8)
[2022-06-23 05:10] LABS: CREATININE 0.7 mg/dL (0.5-1.5); POTASSIUM 3.9 mmol/L (3.5-5.1)
[2022-06-23] MEDS: INSULIN HUMULIN R 100 UNIT/ML 3ML SQ SCH ×4 (06:25→12:25)
[2022-06-23] MEDS: FAMOTIDINE 20MG TAB PO SCH (09:49)
[2022-06-23] MEDS: LISINOPRIL 10 MG TABLET PO SCH (09:50)
[2022-06-23] MEDS: ENOXAPARIN SODIUM 40 MG/0.4 ML SYRINGE SQ SCH (09:50)
[2022-06-23] MEDS ORDERED: MECL-160 PO ×2 (11:18)
[2022-06-23] MEDS ORDERED: ATOR10TA69 PO ×2 (11:18)
[2022-06-23] MEDS ORDERED: INSLAN SQ ×2 (11:18)
[2022-06-23] MEDS ORDERED: LORA10TA7 PO ×2 (11:18)
[2022-06-23] MEDS ORDERED: METF-446 PO ×2 (11:18)
[2022-06-23] MEDS ORDERED: LISI10TA24 PO ×2 (11:18)
[2022-06-23] MEDS ORDERED: AMOX1TAB15 PO ×2 (11:27)
[2022-06-23 12:00] VITALS: BP 146/79
== END 2022-06-23 17:11 | disposition home or self-care (01) | DRG 305 ==
LOC: EDH 19:11 → EDHIP 19:12 → 4AH 23:34
PROVIDERS: ADMIT Family Medicine; ATTEND Family Medicine
DX: I16.0 Hypertensive urgency (principal); N30.00 Acute cystitis without hematuria; F17.210 Nicotine dependence, cigarettes, uncomplicated; Z20.822 Contact with and (suspected) exposure to COVID-19; I10 Essential (primary) hypertension; Z79.4 Long term (current) use of insulin
CPT/HCPCS: 36415; 70450; 70547; 70553; 80048; 80053; 80305; 81001; 82948; 83036; 83605; 83735; 84100; 84145; 85025; 85027; 87040; 87088; 87635; 93005; G0378; J0696; J1650; J1815; J2405; J7030; Q9967

== ENCOUNTER 2022-08-17 15:12 | Emergency (ER) | payer OTHER ==
[~2022-08-17] VITALS: Ht 177.8 cm; Wt 108.9 kg
[~2022-08-17 15:12] MED LIST changes: +AMOX1TAB15 PO; +ATOR10TA69 PO; +INSLAN SQ; -INSU10VI3 SQ; +LISI10TA24 PO; -LISI5TAB21 PO; +LORA10TA7 PO; +METF-446 PO; -ONDA4TAB10 PO; -PANT40TA PO
[2022-08-17] MEDS ORDERED: LIDOCAINE HCL 1% 20 ML VIAL ONE (16:14)
[2022-08-17] MEDS ORDERED: MORPHINE 4 MG SYG ONE (16:24)
[2022-08-17] MEDS ORDERED: SULFAMETHOX-TMP DS 800/160 TAB PO SCH (17:00)
[2022-08-17] MEDS ORDERED: SULF1TAB42 PO (18:14)
[2022-08-17] MEDS ORDERED: METF-444 PO (18:14)
[2022-08-17] MEDS ORDERED: AMLO-258 PO (18:14)
[2022-08-17 18:22] VITALS: BP 168/84
== END 2022-08-17 18:51 | disposition home or self-care (01) ==
LOC: EDH 15:12
DX: L02.412 Cutaneous abscess of left axilla (principal); Z91.199 Patient's noncompliance with other medical treatment and regimen due to unspecified reason; I10 Essential (primary) hypertension; E11.9 Type 2 diabetes mellitus without complications; F17.200 Nicotine dependence, unspecified, uncomplicated; Z79.84 Long term (current) use of oral hypoglycemic drugs; Z79.899 Other long term (current) drug therapy; Z90.49 Acquired absence of other specified parts of digestive tract; Z98.890 Other specified postprocedural states
CPT/HCPCS: 99283; 10060; 96372; J2270

== ENCOUNTER 2022-09-18 11:54 | Emergency (ER) | payer OTHER ==
[~2022-09-18] VITALS: Ht 177.8 cm; Wt 112.9 kg
[~2022-09-18 11:54] MED LIST changes: +AMLO-258 PO; +METF-444 PO; +SULF1TAB42 PO
[2022-09-18 12:11] VITALS: BP 156/78; PULSE 98; RESP 16; O2SAT 97
[2022-09-18 12:33] LABS: BASOPHILS # (AUTO) 0.02 K/uL (0.00-0.20); BASOPHILS % (AUTO) 0.2 % (0.0-5.0); EOSINOPHILS # (AUTO) 0.03 K/uL (0.00-0.70); EOSINOPHILS % (AUTO) 0.4 % (0.0-8.0); IMMATURE GRANULOCYTE ABSOLUTE 0.05 K/uL (0-1); LYMPHOCYTES # (AUTO) 1.4 K/uL (1.0-4.8); LYMPHOCYTES % (AUTO) 17.2 % (21.0-51.0); MEAN CORPUSCULAR HEMOGLOBIN 28.8 pg (27.0-33.0); MEAN CORPUSCULAR HGB CONC 35.1 g/dL (32.0-36.0); MONOCYTES # (AUTO) 0.9 K/uL (0.1-1.0); MONOCYTES % (AUTO) 10.6 % (3.0-13.0); NEUTROPHILS # (AUTO) 5.8 K/uL (1.8-7.7); PLATELET COUNT (AUTO) 194 K/uL (130-400); RED BLOOD CELL COUNT(AUTO) 5.49 MIL/uL (4.50-6.20); RED CELL DISTRIBUTION WIDTH 12.3 % (11.0-15.5); WHITE BLOOD COUNT (AUTO) 8.1 K/uL (4.8-10.8)
[2022-09-18 13:00] LABS: CREATININE 0.8 mg/dL (0.5-1.5); POTASSIUM 3.8 mmol/L (3.5-5.1)
[2022-09-18 13:04] LABS: ADD UA MICROSCOPIC YES; APPEARANCE,URINE CLOUDY (CLEAR); BILIRUBIN,URINE NEGATIVE (NEGATIVE); COLOR,URINE YELLOW (YELLOW); GLUCOSE, URINE (UA) >=1000 mg/dL (NEGATIVE); KETONES,URINE 20 mg/dL (NEGATIVE); LEUKOCYTE ESTERASE ,URINE 500 Leu/uL (NEGATIVE); NITRATE,URINE NEGATIVE (NEGATIVE); OCCULT BLOOD,URINE SMALL (NEGATIVE); PROTEIN,URINE 100 mg/dL (NEGATIVE); UROBILINOGEN,URINE 0.2 mg/dL (0.2-1.0)
[2022-09-18 13:05] LABS: ALBUMIN 2.9 g/dL (3.5-5.0); BILIRUBIN,TOTAL 0.6 mg/dL (0.2-1.0); TOTAL PROTEIN, SERUM 6.7 g/dL (6.0-8.3)
[2022-09-18 13:05] LABS: BACTERIA,URINE RARE /HPF (None Seen); MUCUS,URINE RARE LPF (None Seen); RBC,URINE 51-100 /HPF (0-1); SQUAMOUS EPITHELIAL CELL,UR MOD /HPF (0-2); WBC,URINE 51-100 /HPF (0-1)
[2022-09-18] MEDS ORDERED: CEFTRIAXONE 1G VIAL IVPB ONE (13:30)
[2022-09-18] MEDS ORDERED: INSULIN HUMULIN R 100 UNIT/ML 3ML IV ONE (13:30)
[2022-09-18] MEDS ORDERED: 0.9%NACL 1000ML 2,000 ML IV ONE (13:30)
[2022-09-18] MEDS ORDERED: IOHEXOL 350 MG/ML 100ML INFUS..BTL IV ONE (15:58)
[2022-09-18] MEDS ORDERED: METF-444 PO (16:43)
[2022-09-18] MEDS ORDERED: LISI10TA24 PO (17:01)
[2022-09-18] MEDS ORDERED: CEPH500B PO (17:01)
== END 2022-09-18 18:29 | disposition home or self-care (01) ==
LOC: EDH 11:54
DX: N39.0 Urinary tract infection, site not specified (principal); E11.65 Type 2 diabetes mellitus with hyperglycemia; R11.2 Nausea with vomiting, unspecified; I10 Essential (primary) hypertension; F17.200 Nicotine dependence, unspecified, uncomplicated; Z79.84 Long term (current) use of oral hypoglycemic drugs; Z79.899 Other long term (current) drug therapy; Z98.890 Other specified postprocedural states; Z90.49 Acquired absence of other specified parts of digestive tract
CPT/HCPCS: 99285; 70450; 96365; 71045; 96375; 82550; 84484; 80053; 85025; 85651; 87088; 82948; 83605; 81001; 36415; 74177; 93005; J1815; J7030; J0696; Q9967

== ENCOUNTER 2023-04-28 21:22 | Emergency (ER) | payer BC ==
[~2023-04-28] VITALS: Ht 177.8 cm; Wt 110.7 kg
[~2023-04-28 21:22] MED LIST changes: +CEPH500B PO
[2023-04-28 23:00] VITALS: BP 175/86; PULSE 76; RESP 18; O2SAT 98
[2023-04-28] MEDS ORDERED: NAPR-1180 PO (23:10)
[2023-04-28] MEDS ORDERED: CYCL-309 PO (23:10)
[2023-04-28] MEDS ORDERED: KETOROLAC 15MG/ML VIAL (15MG/ML) IM ONE (23:30)
== END 2023-04-28 23:27 | disposition home or self-care (01) ==
LOC: EDH 21:22
DX: S46.911A Strain of unspecified muscle, fascia and tendon at shoulder and upper arm level, right arm, initial encounter (principal); E11.9 Type 2 diabetes mellitus without complications; I10 Essential (primary) hypertension; F17.200 Nicotine dependence, unspecified, uncomplicated; Z79.84 Long term (current) use of oral hypoglycemic drugs; Z79.899 Other long term (current) drug therapy; Z86.73 Personal history of transient ischemic attack (TIA), and cerebral infarction without residual deficits; W18.39XA Other fall on same level, initial encounter; Y93.89 Activity, other specified; Y92.89 Other specified places as the place of occurrence of the external cause; Y99.8 Other external cause status
CPT/HCPCS: 73030; J1885

== ENCOUNTER 2023-07-11 14:19 | Emergency (ER) | payer BC ==
[~2023-07-11] VITALS: Ht 177.8 cm; Wt 108.9 kg
[~2023-07-11 14:19] MED LIST changes: +CYCL-309 PO; -MECL-160 PO; +MECL-302 PO; +NAPR-1180 PO
[2023-07-11] MEDS: DEXAMETHASONE SOD PHOSPHATE 4 MG/ML 1ML VIAL IM ONE (15:22)
[2023-07-11 15:31] LABS: SARS-CoV-2, RNA, NAAT NEGATIVE SARS CoV-2 (NEGATIVE)
[2023-07-11 15:37] LABS: INFLUENZA TYPE A Negative For Type A (NEGATIVE); INFLUENZA TYPE B Negative For Type B (NEGATIVE)
[2023-07-11] MEDS ORDERED: LORA10TA7 PO (15:49)
[2023-07-11] MEDS ORDERED: FLUT16H NASAL (15:49)
[2023-07-11 15:57] VITALS: BP 154/90; PULSE 90; RESP 20; O2SAT 99
== END 2023-07-11 16:01 | disposition home or self-care (01) ==
LOC: EDH 14:19
DX: J32.9 Chronic sinusitis, unspecified (principal); I10 Essential (primary) hypertension; E11.9 Type 2 diabetes mellitus without complications; F17.200 Nicotine dependence, unspecified, uncomplicated; Z79.84 Long term (current) use of oral hypoglycemic drugs; Z79.899 Other long term (current) drug therapy; Z20.822 Contact with and (suspected) exposure to COVID-19; Z86.73 Personal history of transient ischemic attack (TIA), and cerebral infarction without residual deficits
CPT/HCPCS: 99284; 71045; 87635; 87804 ×2; 96372; J1100

== ENCOUNTER 2023-08-31 17:39 | Emergency (ER) | payer BC ==
[~2023-08-31] VITALS: Ht 177.8 cm; Wt 107.5 kg
[2023-08-31 19:13] LABS: BASOPHILS # (AUTO) 0.05 K/uL (0.00-0.20); BASOPHILS % (AUTO) 0.5 % (0.0-5.0); EOSINOPHILS # (AUTO) 0.17 K/uL (0.00-0.70); EOSINOPHILS % (AUTO) 1.6 % (0.0-8.0); HEMATOCRIT 46.9 % (42-54); IMMATURE GRANULOCYTE ABSOLUTE 0.05 K/uL (0-1); LYMPHOCYTES # (AUTO) 2.5 K/uL (1.0-4.8); LYMPHOCYTES % (AUTO) 22.8 % (21.0-51.0); MEAN CORPUSCULAR HEMOGLOBIN 29.4 pg (27.0-33.0); MEAN CORPUSCULAR VOLUME 84.2 fL (79-99); MONOCYTES # (AUTO) 0.9 K/uL (0.1-1.0); MONOCYTES % (AUTO) 8.1 % (3.0-13.0); NEUTROPHILS # (AUTO) 7.2 K/uL (1.8-7.7); NEUTROPHILS % (AUTO) 66.5 % (40.0-77.0); PLATELET COUNT (AUTO) 253 K/uL (130-400); RED BLOOD CELL COUNT(AUTO) 5.57 MIL/uL (4.50-6.20); WHITE BLOOD COUNT (AUTO) 10.8 K/uL (4.8-10.8)
[2023-08-31] MEDS: CEFTRIAXONE 1G VIAL IVPB ONE (19:26)
[2023-08-31 19:34] LABS: CREATININE 0.9 mg/dL (0.5-1.3); POTASSIUM 3.8 mmol/L (3.5-5.1)
[2023-08-31 19:36] LABS: B-TYPE NATRIURETIC PEPTIDE 72 pg/mL (0-100)
[2023-08-31 19:43] LABS: BILIRUBIN,TOTAL 0.6 mg/dL (0.2-1.0); MAGNESIUM 1.6 mg/dL (1.80-2.40); TOTAL PROTEIN, SERUM 6.8 g/dL (6.0-8.3)
[2023-08-31 20:16] LABS: PROTHROMBIN TIME 10.8 SEC (9.6-11.6)
[2023-08-31 20:17] LABS: PARTIAL THROMBOPLASTIN TIME 26.7 SEC (26.3-35.5)
[2023-08-31 20:33] LABS: APPEARANCE,URINE CLEAR (CLEAR); BILIRUBIN,URINE NEGATIVE (NEGATIVE); COLOR,URINE LIGHT-YELLOW (YELLOW); GLUCOSE, URINE (UA) >=1000 mg/dL (NEGATIVE); KETONES,URINE NEGATIVE (NEGATIVE); LEUKOCYTE ESTERASE ,URINE 25 Leu/uL (NEGATIVE); NITRATE,URINE NEGATIVE (NEGATIVE); OCCULT BLOOD,URINE NEGATIVE (NEGATIVE); PH,URINE 5.5 (5.0-8.0); PROTEIN,URINE 100 mg/dL (NEGATIVE); UROBILINOGEN,URINE 0.2 mg/dL (0.2-1.0)
[2023-08-31 20:34] LABS: ADD UA MICROSCOPIC YES; BACTERIA,URINE RARE /HPF (None Seen); MUCUS,URINE RARE LPF (None Seen); SQUAMOUS EPITHELIAL CELL,UR MOD /HPF (0-2)
[2023-08-31] MEDS: INSULIN HUMULIN R 100 UNIT/ML 3ML IV ONE (20:36)
[2023-08-31] MEDS: 0.9%NACL 1000ML 1,000 ML IV ONE (20:37)
[2023-08-31] MEDS: MAGNESIUM 2GM PREMIX 50ML 50 ML IV SCH (20:43)
[2023-08-31] MEDS ORDERED: CEPH500B PO (21:45)
[2023-08-31 21:54] VITALS: BP 148/82; PULSE 76; RESP 15; O2SAT 97
== END 2023-08-31 21:56 | disposition home or self-care (01) ==
LOC: EDH 17:39
DX: L03.116 Cellulitis of left lower limb (principal); L03.115 Cellulitis of right lower limb; E11.65 Type 2 diabetes mellitus with hyperglycemia; F17.200 Nicotine dependence, unspecified, uncomplicated; I10 Essential (primary) hypertension; M79.7 Fibromyalgia; M79.662 Pain in left lower leg; M79.661 Pain in right lower leg; Z86.73 Personal history of transient ischemic attack (TIA), and cerebral infarction without residual deficits
CPT/HCPCS: 99284; 93970; 96374; 96375; 71045; 82550; 83735; 84484; 80053; 83880; 85025; 85610; 85730; 87040; 87086; 82948; 83605; 81001; 36415; 93005; 84145; J1815; J3475; J7030; J0696

== ENCOUNTER 2024-01-15 18:29 | Inpatient (IN) | payer SELFPAY ==
[~2024-01-15] VITALS: Ht 177.8 cm; Wt 109.2 kg
[~2024-01-15 18:29] MED LIST changes: -AMLO-258 PO; -AMOX1TAB15 PO; -ATOR10TA69 PO; -CYCL-309 PO; -INSLAN SQ; -LANC1KIT39 MC; -LISI10TA24 PO; -LORA10TA7 PO; -MECL-302 PO; -METF-444 PO; -METF-446 PO; -NAPR-1180 PO; -SULF1TAB42 PO
--- NOTE | 2024-01-15 18:43 | ERN ---
ED Note History of Present Illness Stated Complaint: STOMACH PAIN Chief Complaint: Abdominal Pain Time Seen by MD: 18:31 Dictation: PATIENT IS A 49-YEAR-OLD MALE COMING IN TODAY WITH RIGHT AND LEFT LOWER QUADRANT TENDERNESS PAIN WITH NAUSEA VOMITING FOR TWO DAYS. NO FEVER NO CHILLS NO CHEST PAIN NO BACK PAIN NO SOB. Allergies: Coded Allergies: No Known Drug Allergies (Unverified Allergy, Unknown, 04/03/22) Home Meds Active Scripts Cephalexin Monohydrate (Keflex) 500 Mg Cap, 500 MG PO QID for 7 Days, #28 CAP Prov:BEBA CONDE MD 08/31/23 Past Medical History Past Medical History: Diabetes-Type II, High Cholesterol, Hypertension Additional Past Medical Hx: FIBROMYALGIA Surgical History: Other Surgical History Other: BACK WOUND DEBRIMENT PSYCH History: no pertinent psych hx Social History: Smokers, Lives with family RN Note Reviewed/Agreed w/PFSH: Yes Review of System Dictation CONSTITUTIONAL: NEGATIVE EXCEPT FOR HPI HEAD/FACE: NEGATIVE EXCEPT FOR HPI EENT: NEGATIVE EXCEPT FOR HPI RESPIRATORY: NEGATIVE EXCEPT FOR HPI GASTROINTESTINAL/ABDOMINAL: NEGATIVE EXCEPT FOR HPI RIGHT AND LEFT LOWER QUADRANT PAIN TENDERNESS WITH NAUSEA VOMITING GENITOURINARY: NEGATIVE EXCEPT FOR HPI MUSCULOSKELETAL: NEGATIVE EXCEPT FOR HPI INTEGUMENTARY: NEGATIVE EXCEPT FOR HPI NEUROLOGICAL/PSYCH: NEGATIVE EXCEPT FOR HPI HEMATOLOGIC/LYMPHATIC: NEGATIVE EXCEPT FOR HPI ALL SYSTEMS NEGATIVE, EXCEPT NOTED ABOVE. 13 POINT REVIEW OF SYSTEMS ASSESSED AND ALL NEGATIVE EXCEPT FOR ABOVE. Initial Vital Sign VS Vital Signs Date Time Temp Pulse Resp B/P (MAP) Pulse Ox O2 Delivery O2 Flow Rate FiO2 01/15/24 18:40 98.2 88 16 186/81 99 Room Air* 0 21 Physical Exam Dictation VITAL SIGNS REVIEWED GENERAL APPEARANCE: ALERT, ORIENTED X 3, MODERATE ACUTE DISTRESS, WELL DEVELOPED, NOURISHED. HEAD AND FACE: NON-TRAUMATIC. EYES: PERRL, PINK CONJUNCTIVAS, EYELID NO TRAUMA, ANTERIOR CHAMBER WITH ARCUS SENILIS. EARS: PINNAS INTACT AND NO SIGNS OF TRAUMA OR ERYTHEMA EAR CANALS CLEAR AND NO DISCHARGE TM NO ERYTHEMA NOSE: NO DISCHARGE, NO BLEEDING. OROPHARYNX: MOUTH NORMAL, TONGUE PINK, PHARYNX CLEAR,NO ERYTHEMA, TONSILS NO EXUDATES, NO ABSCESSES NOTED, MUCOUS MEMBRANE MOIST NECK: SUPPLE, NON-TENDER, NO THYROMEGALY, NO MASSES, NO JVD, NO BRUITS BREAST:DEFERRED CHEST:NO TENDERNESS, NO CREPITUS, NO PARADOXICAL MOVEMENT, NO RETRACTIONS LUNGS:CLEAR, WELL-VENTILATED, SYMMETRIC, NO RALES, NO WHEEZING, NO RHONCHI, NO STRIDOR, GOOD BREATH SOUNDS BILATERALLY HEART: REGULAR RATE, REGULAR RHYTHM, NO MURMUR, NO GALLOPS VASCULAR: NO PERIPHERAL EDEMA, ABDOMEN: SOFT, POSITIVE BOWEL SOUNDS, NONDISTENDED, NO GUARDING, DIFFUSE RIGHT AND LEFT LOWER QUADRANT TENDERNESS NO REBOUND TENDERNESS. PATIENT STATES GALLBLADDER SURGICALLY ABSENT RECTAL: DEFERRED GENITAL: DEFERRED NEUROLOGICAL: NORMAL SPEECH, MOTOR FUNCTION INTACT, SENSORY FUNCTION INTACT MUSCULOSKELETAL: NECK NONTENDER, FULL RANGE OF MOTION, BACK NONTENDER, FULL RANGE OF MOTION, EXTREMITIES: NONTENDER, FULL RANGE OF MOTION SKIN: COLOR PINK, DRY, NO TURGOR, NO RASH, NO LACERATIONS, NO ABRASIONS, NO CONTUSIONS. LYMPHATIC: DEFERRED Results (Laboratory/Radiology) Laboratory/Radiology Laboratory Tests Test 01/15/24 18:55 01/15/24 19:00 White Blood Count 13.9 K/uL (4.8-10.8) H Red Blood Count 5.34 MIL/uL (4.50-6.20) Hemoglobin 15.4 g/dL (14.0-18.0) Hematocrit 43.9 % (42-54) Mean Corpuscular Volume 82.2 fL (79-99) Mean Corpuscular Hemoglobin 28.8 pg (27.0-33.0) Mean Corpuscular Hemoglobin Concent 35.1 g/dL (32.0-36.0) Red Cell Distribution Width 12.6 % (11.0-15.5) Platelet Count 303 K/uL (130-400) Mean Platelet Volume 9.4 fL (7.5-10.5) Immature Granulocyte % (Auto) 0.6 % (0-1) Neutrophils (%) (Auto) 75.7 % (40.0-77.0) Lymphocytes (%) (Auto) 13.3 % (21.0-51.0) L Monocytes (%) (Auto) 8.8 % (3.0-13.0) Eosinophils (%) (Auto) 1.3 % (0.0-8.0) Basophils (%) (Auto) 0.3 % (0.0-5.0) Neutrophils # (Auto) 10.5 K/uL (1.8-7.7) H Lymphocytes # (Auto) 1.9 K/uL (1.0-4.8) Monocytes # (Auto) 1.2 K/uL (0.1-1.0) H Eosinophils # (Auto) 0.18 K/uL (0.00-0.70) Basophils # (Auto) 0.04 K/uL (0.00-0.20) Absolute Immature Granulocyte (auto 0.08 K/uL (0-1) Nucleated Red Blood Cells 0.0 % (0.0-0.19) Sodium Level 132 mmol/L (136-145) L Potassium Level 4.6 mmol/L (3.5-5.1) Chloride Level 96 mmol/L (101-111) L Carbon Dioxide Level 30 mmol/L (21-32) Blood Urea Nitrogen 8 mg/dL (7-18) Creatinine 0.9 mg/dL (0.5-1.3) Glomerular Filtration Rate Calc 103 mL/min (>90) Random Glucose 492 mg/dL (70-105) *H Total Calcium 9.3 mg/dL (8.5-10.1) Lipase 227 U/L (16-77) H Urine Color COLORLESS (YELLOW) Urine Appearance CLEAR (CLEAR) Urine pH 6.0 (5.0-8.0) Urine Specific [place] 1.025 (1.001-1.031) Urine Protein 70 mg/dL (NEGATIVE) H Urine Glucose (UA) >=1000 mg/dL (NEGATIVE) H Urine Ketones NEGATIVE mg/dL (NEGATIVE) Urine Occult Blood SMALL (NEGATIVE) H Urine Nitrate NEGATIVE (NEGATIVE) Urine Bilirubin NEGATIVE mg/dL (NEGATIVE) Urine Urobilinogen 0.2 mg/dL (0.2-1.0) Urine Leukocyte Esterase 25 Farheen/uL (NEGATIVE) H Urine RBC 6-10 /HPF (0-1) H Urine WBC 11-25 /HPF (0-1) H Urine Squamous Epithelial Cells RARE /HPF (0-2) Urine Bacteria None /HPF (None Seen) Urine Yeast RARE /HPF (None Seen) INDICATION: Lower abdominal pain with nausea and vomiting TECHNIQUE: Routine transaxial images using 5 mm slice thickness were obtained after the intravenous infusion of 100 mL of Omnipaque 350 without adverse effects. Oral contrast was not administered. Rectal contrast was not administered. Coronal and sagittal reformatted images acquired for interpretation. CT was performed with one or more of the following dose reduction techniques: Automated exposure control, adjustment of the mA and/or kV according to patient size, or use of iterative reconstruction technique. COMPARISON: 09/18/2022 FINDINGS: ABDOMEN: Heart size is normal. Visible lung bases are clear. The liver is normal in size and smooth in contour without lesions or biliary duct dilation. The spleen is normal in size without lesions. The gallbladder is absent. The pancreas appears normal without pancreatic duct dilation. Mild bilateral adrenal gland thickening without nodule/mass. 2 mm nonobstructing stone at the mid to lower portion of the left kidney. Right kidney appears normal. Nominal bilateral perinephric edema. Cortical nephrograms are symmetric and normal in appearance bilaterally. No evidence for intra-abdominal free air or organized fluid collection. No retrocrural, intraabdominal, or retroperitoneal lymphadenopathy identified. Mild calcific plaque is noted along the abdominal aortic and iliac vessel [place] without aneurysmal dilation or dissection. PELVIS: No evidence for free air or organized pelvic fluid collection. No significant pelvic adenopathy detected. Moderate stool burden. Terminal ileum appears normal. The appendix appears normal. The urinary bladder appears unremarkable. Chronic bilateral L5 spondylolysis contributing to low-grade (3 mm) anterolisthesis of L5 upon S1. Mild thoracolumbar spondylosis. IMPRESSION: 1. 2 mm nonobstructing left renal stone. 2. Findings suggesting mild bilateral adrenal gland hyperplasia. 3. Additional minor findings, postsurgical changes, and pertinent negatives as reported. Labs Reviewed?: Yes ED Course ED Course Orders Procedure Category Date Status Time Cbc With Differential LAB 01/15/24 Complete 18:40 Urinalysis Profile LAB 01/15/24 Complete 18:40 Ct Abdomen/Pelvis CT 01/15/24 Resulted W/Contrast 18:40 0.9%Nacl 1000ml (Ns PHA 01/15/24 Complete 1000ml) 19:00 Ketorolac PHA 01/15/24 Complete Tromethamine 30mg/Ml 19:00 Ondansetron 4mg Inj PHA 01/15/24 Complete (Zofran 4mg Inj) 19:00 Lipase LAB 01/15/24 Complete 18:40 Basic Metabolic Panel LAB 01/15/24 Complete 18:40 Culture Urine ELIANA 01/15/24 Logged 19:20 Iohexol (Omnipaque) PHA 12/5/24 Complete 19:24 0.9%Nacl 1000ml (Ns PHA 01/15/24 Complete 1000ml) 19:30 Insulin Regular, PHA 01/15/24 Complete Human 3ml (Humulin R 19:30 Current Medications Medications (Trade) Dose Ordered Sig/Christofer Route PRN Reason Start Time Stop Time Status Last Admin Dose Admin Insulin Human Regular (humuLIN R 100 UNIT/ML 3ML) 15 unit ONCE ONCE IV 01/15/24 19:30 01/15/24 19:36 DC 01/15/24 20:00 Iohexol (Omnipaque) 35,000 mg STK-MED ONCE IV 01/15/24 19:24 01/15/24 19:24 DC Ketorolac Tromethamine (toRADol) 30 mg ONCE ONCE IVP 01/15/24 19:00 01/15/24 19:01 DC 01/15/24 19:00 Ondansetron HCl (zoFRAN 4MG INJ) 4 mg ONCE ONCE IVP 01/15/24 19:00 01/15/24 19:01 DC 01/15/24 19:00 Sodium Chloride 1,000 ml @ 0 mls/hr ONCE ONCE IV 01/15/24 19:00 01/15/24 19:01 DC 01/15/24 19:00 Sodium Chloride 1,000 ml @ 0 mls/hr ONCE ONCE IV 01/15/24 19:30 01/15/24 19:36 DC 01/15/24 19:53 Vital Signs Date Time Temp Pulse Resp B/P (MAP) Pulse Ox O2 Delivery O2 Flow Rate FiO2 01/15/24 21:00 98.2 81 18 173/89 99 Room Air* 0 01/15/24 20:00 81 18 180/96 98 Room Air* 0 01/15/24 18:55 81 18 180/90 98 Room Air* 0 01/15/24 18:40 98.2 88 16 186/81 99 Room Air 01/15/24 18:40 98.2 88 16 186/81 99 Room Air* 0 2109, SPOKE WITH PATIENT AT LENGTH AND HE SAID HE IS NOT TAKING ANY DIABETIC MEDICATIONS SINCE HIS LAST VISIT IN EARLY DECEMBER BECAUSE HE DOES NOT HAVE A RIDE TO SEE HIS DOCTOR. STATES PAIN IS SOMEWHAT REDUCED HOWEVER NOT ELIMINATED AFTER TREATMENT. PATIENT WILL BE ADMITTED TO THE HOSPITAL FOR ACUTE PANCREATITIS AND UNCONTROLLED DIABETES DEHYDRATION 2131, spoke with Fawn PETERP hospitalist and reviewed CT labs interventions for hyperglycemia and nausea vomiting to include fluid resuscitation morphine Zofran and regular insulin. She agreed to admit patient. She is also aware patient has been noncompliant with wrote medication since his last visit due to no transportation to his primary care doctor's office. Medical Decision Making MDM MDM: DIFFERENTIAL DIAGNOSIS: PANCREATITIS/DIVERTICULITIS/APPENDICITIS/UNCONTROLLED DIABETES/DEHYDRATION/UTI/HERNIA. RATIONALE: TESTS CONSIDERED AND ORDERED SECONDARY TO SHARED DECISION MAKING INCLUDE: LABS, AND RADIOLOGY PREVIOUS OUTSIDE RECORDS REVIEWED: OLD ER VISITS. RISK OF COMPLICATION AND/OR MORBIDITY OR MORTALITY OF PATIENT MANAGEMENT: MODERATE MEDICATIONS-PER MEDICATION RECONCILIATION SEE NURSE'S NOTE NEED FOR HOSPITALIZATION: PATIENT DOES MEET CRITERIA FOR HOSPITALIZATION. YES WE WILL NEED TREATMENT MAINTAIN NPO MODERATE HIS DIABETES AND MAINTAIN FLUID STATUS NEED FOR EMERGENCY MAJOR/MINOR SURGERY: NO THERE ARE NO SOCIAL CONCERNS WITH THIS PATIENT. PATIENT STATES HE HAS NO TRANSPORTATION TO HIS DOCTOR FOR MEDICATION REFILLS PRESCRIPTION DRUG MANAGEMENT PRESCRIPTIONS WILL INCLUDE SYMPTOMATIC CARE PATIENT'S PRIOR EXTERNAL MEDICAL RECORDS FROM OTHER ER VISITS WERE REVIEWED BY ME INDICATED. PRIOR TESTING AND RESULTS FROM PREVIOUS VISITS WERE REVIEWED. PRIOR TESTS WERE TAKEN INTO ACCOUNT WITH MEDICAL DECISION MAKING AND RESOURCE UTILIZATION, INDEPENDENT HISTORIAN/HISTORIANS WERE USED TO OBTAIN COMPLETE MEDICAL HISTORY. I INDEPENDENTLY INTERPRETED THE TEST THAT WERE PERFORMED, RESULTS WERE REVIEWED BY ME AND CONSIDERED FINDINGS ON RADIOLOGY IF ORDERED. MEDICAL MANAGEMENT AND EXAMINATION INTERPRETATION DISCUSSIONS WERE HAD BY ME WITH OTHER QUALIFIED HEALTHCARE PROFESSIONALS INDICATED FOR THE PATIENT'S CARE. DX & DISP Disposition: Observation Departure Impression: Primary Impression: Acute pancreatitis Additional Impressions: Uncontrolled diabetes mellitus, Dehydration, Noncompliance with medication regimen Condition: Stable Referrals: VANESSA GALAN DO (PCP) Time of Disposition: 21:15 I have reviewed the case, and I agree with, Diagnosis and Plan BARRY العراقي [employer] Jan 15, 2024 18:43
[2024-01-15] MEDS: 0.9%NACL 1000ML 1,000 ML IV ONE ×2 (19:00→19:53)
[2024-01-15] MEDS: ondanSETRON 4MG INJ IVP ONE (19:00)
[2024-01-15] MEDS: ketOROlac 30MG VIAL (30MG/ML) IVP ONE (19:00)
[2024-01-15 19:14] LABS: APPEARANCE,URINE CLEAR (CLEAR); BILIRUBIN,URINE NEGATIVE (NEGATIVE); COLOR,URINE COLORLESS (YELLOW); GLUCOSE, URINE (UA) >=1000 mg/dL (NEGATIVE); KETONES,URINE NEGATIVE (NEGATIVE); LEUKOCYTE ESTERASE ,URINE 25 Leu/uL (NEGATIVE); NITRATE,URINE NEGATIVE (NEGATIVE); OCCULT BLOOD,URINE SMALL (NEGATIVE); PROTEIN,URINE 70 mg/dL (NEGATIVE); UROBILINOGEN,URINE 0.2 mg/dL (0.2-1.0)
[2024-01-15 19:15] LABS: ADD UA MICROSCOPIC YES
[2024-01-15 19:15] LABS: CREATININE 0.9 mg/dL (0.5-1.3); POTASSIUM 4.6 mmol/L (3.5-5.1)
[2024-01-15 19:16] LABS: BASOPHILS # (AUTO) 0.04 K/uL (0.00-0.20); BASOPHILS % (AUTO) 0.3 % (0.0-5.0); EOSINOPHILS # (AUTO) 0.18 K/uL (0.00-0.70); EOSINOPHILS % (AUTO) 1.3 % (0.0-8.0); HEMATOCRIT 43.9 % (42-54); IMMATURE GRANULOCYTE ABSOLUTE 0.08 K/uL (0-1); LYMPHOCYTES # (AUTO) 1.9 K/uL (1.0-4.8); LYMPHOCYTES % (AUTO) 13.3 % (21.0-51.0); MEAN CORPUSCULAR HEMOGLOBIN 28.8 pg (27.0-33.0); MEAN CORPUSCULAR HGB CONC 35.1 g/dL (32.0-36.0); MEAN CORPUSCULAR VOLUME 82.2 fL (79-99); MONOCYTES # (AUTO) 1.2 K/uL (0.1-1.0); MONOCYTES % (AUTO) 8.8 % (3.0-13.0); NEUTROPHILS # (AUTO) 10.5 K/uL (1.8-7.7); NEUTROPHILS % (AUTO) 75.7 % (40.0-77.0); PLATELET COUNT (AUTO) 303 K/uL (130-400); RED BLOOD CELL COUNT(AUTO) 5.34 MIL/uL (4.50-6.20); RED CELL DISTRIBUTION WIDTH 12.6 % (11.0-15.5); WHITE BLOOD COUNT (AUTO) 13.9 K/uL (4.8-10.8)
[2024-01-15 19:16] LABS: SQUAMOUS EPITHELIAL CELL,UR RARE /HPF (0-2); YEAST,URINE BUDDING RARE /HPF (None Seen)
[2024-01-15] MEDS ORDERED: IOHEXOL 350 MG/ML 100ML INFUS..BTL IV ONE (19:24)
--- NOTE | 2024-01-15 19:57 | HMCIMG ---
CT ABDOMEN WITH CONTRAST. CT PELVIS WITH CONTRAST INDICATION: Lower abdominal pain with nausea and vomiting TECHNIQUE: Routine transaxial images using 5 mm slice thickness were obtained after the intravenous infusion of 100 mL of Omnipaque 350 without adverse effects. Oral contrast was not administered. Rectal contrast was not administered. Coronal and sagittal reformatted images acquired for interpretation. CT was performed with one or more of the following dose reduction techniques: Automated exposure control, adjustment of the mA and/or kV according to patient size, or use of iterative reconstruction technique. COMPARISON: 09/18/2022 FINDINGS: ABDOMEN: Heart size is normal. Visible lung bases are clear. The liver is normal in size and smooth in contour without lesions or biliary duct dilation. The spleen is normal in size without lesions. The gallbladder is absent. The pancreas appears normal without pancreatic duct dilation. Mild bilateral adrenal gland thickening without nodule/mass. 2 mm nonobstructing stone at the mid to lower portion of the left kidney. Right kidney appears normal. Nominal bilateral perinephric edema. Cortical nephrograms are symmetric and normal in appearance bilaterally. No evidence for intra-abdominal free air or organized fluid collection. No retrocrural, intraabdominal, or retroperitoneal lymphadenopathy identified. Mild calcific plaque is noted along the abdominal aortic and iliac vessel [place] without aneurysmal dilation or dissection. PELVIS: No evidence for free air or organized pelvic fluid collection. No significant pelvic adenopathy detected. Moderate stool burden. Terminal ileum appears normal. The appendix appears normal. The urinary bladder appears unremarkable. Chronic bilateral L5 spondylolysis contributing to low-grade (3 mm) anterolisthesis of L5 upon S1. Mild thoracolumbar spondylosis. IMPRESSION: 1. 2 mm nonobstructing left renal stone. 2. Findings suggesting mild bilateral adrenal gland hyperplasia. 3. Additional minor findings, postsurgical changes, and pertinent negatives as reported.
[2024-01-15] MEDS: INSULIN humuLIN R 100 UNIT/ML 3ML IV ONE (20:00)
--- NOTE | 2024-01-15 21:44 | HP ---
[facility] PH[facility] Date of Service: Jan 15, 2024 Time of Service: 21:44 PCP: Chris HISTORY OF PRESENT ILLNESS: This is a 49-year-old male, homeless with past medical history of fibromyalgia, hypertension, hyperlipidemia diabetes who presented to the ER for complaints of right upper quadrant and left lower quadrant abdominal pain associated with nausea and vomiting for 2 days.Patient is not cooperative during my evaluation.Patient denies fever,chills ,chest pain,palpitation and shortness of breath.Patient states he is not taking his medication and not checking his blood sugar and blood pressure because he has no access .Patient states he smoke 1/2 pack of cigarette a day and denies alcohol and recreational drug use.Patient was recently admitted in this facility on 12/12/2023 for chest pain and hyperglycemia and on 12/16/2023 he decided to leave [facility]. Latest vital signs temperature 98.2, heart rate 84, blood pressure 164/91 saturation 99% on room air. Labs: WBC 13.9, hemoglobin 15.4, hematocrit 43.9 platelet count 303. Sodium 132, glucose 492 to 298 and lipase 227. Urinalysis positive esterase. CT abdomen and pelvis with contrast result revealed 2 mm nonobstructing left renal stone. Findings suggestive of mild bilateral adrenal gland hyperplasia. Chronic bilateral L5 spondylolysis contributing to low-grade 3 mm anterolisthesis of L5 upon S1. A mild thoracolumbar spondylosis. While in the ER patient received insulin 15 units IV. NS 2L bolus, Zofran 4 mg, Toradol 30 mg. We will admit patient for f urther medical management. REVIEW OF SYSTEMS CONSTITUTIONAL: Denies fevers, chills, or night sweats. No unintentional weight loss reported. NEUROLOGICAL: Denies headache, amaurosis fugax, motor weakness, sensory deficit, vertigo/spinning sensation, gait abnormalities, or tremors. ENT: No hearing loss, otalgia, otorrhea, rhinitis, rhinorrhea, hoarseness, or sore throat. CARDIOVASCULAR: Denies any exertional angina, dyspnea on exertion, orthopnea, paroxysmal nocturnal dyspnea, palpitations, life-threatening arrhythmias, claudication. PULMONARY: Denies any shortness of breath, cough, phlegm/sputum, hemoptysis, pleuritic chest pain. SLEEP: Denies morning headaches, daytime somnolence or napping. Denies difficulty falling asleep, staying asleep, waking from sleep. Denies knowledge of snoring. GASTROINTESTINAL: Denies any type of dysphagia to either liquids or solids. Denies nausea, vomiting, pyrosis, early satiety, abdominal pain, diarrhea, constipation, or changes in stool consistency or caliber. Denies coffee-ground emesis, hematemesis, hematochezia, or melanotic stools. GENITOURINARY: Denies frequency, urgency, nocturia, hematuria or incontinence (Storage/Irritative symptoms.) Low urinary stream, straining to void, urinary intermittency or hesitancy, splitting of the voiding stream, terminal dribbling. ENDOCRINOLOGIC: Denies polyuria, polydipsia, polyphagia or heat/cold intoleranc es. HEMATOLOGIC: Denies thrombophilia/previous clots, or coagulopathy/bleeding disorders. ONCOLOGIC: Denies personal history of malignancy. DERMATOLOGIC: Denies rashes or pruritus. PSYCHIATRIC: Denies any suicidal or homicidal ideation. Denies hallucinations. PAST MEDICAL HISTORY: [ Hypertension, hyperlipidemia, diabetes and fibromyalgia] PAST SURGICAL HISTORY: [ Patient denies] PAST SOCIAL HISTORY: [ Patient is homeless. Patient admits to smoking one/half pack of cigarettes per day. Denies alcohol and recreational drug use] FAMILY HISTORY: [ Cardiovascular disease ] Coded Allergies: No Known Drug Allergies (Unverified Allergy, Unknown, 04/03/22) PHYSICAL EXAM GENERAL APPEARANCE: The patient is awake, alert, and oriented, in no acute cardiopulmonary distress. NEUROLOGICAL: Cranial nerves II-XII grossly intact. Motor is 5/5 in bilateral upper and lower extremities proximal to distal. No sensory deficits. HEENT: Face is symmetric. Pupils are equal and reactive. Extraocular movements are intact. NECK: Supple. No JVD. No thyromegaly. No submental, submandibular, pre- /postauricular, occipital or supraclavicular lymphadenopathy. CHEST: Normal chest expansion. No Telemetry. LUNGS: Absence of any rales, rhonchi or any wheezing. CARDIOVASCULAR: Regular. S1 and S2 normal. No appreciable rubs, murmurs or gallops. ABDOMEN: Soft, nontender, and nondistended. There is no rebound, voluntary guarding, or rigidity. : Deferred. No Rust. EXTREMITIES: Non-edematous and not cyanotic. No clubbing. Good capillary refill. SKIN: No skin breakdown. Vital Sign (Last 24 Hours) 01/15/24 21:00 Temp 98.2 Pulse 81 Resp 18 B/P (MAP) 173/89 Pulse Ox 99 O2 Delivery Room Air* O2 Flow Rate 0 FiO2 21 LABS: Laboratory: Test 01/15/24 19:00 01/15/24 18:55 Range/Units Urine Color COLORLESS YELLOW Urine Appearance CLEAR CLEAR Urine pH 6.0 5.0-8.0 Urine Specific [place] 1.025 1.001-1.031 Urine Protein 70 H NEGATIVE mg/dL Urine Glucose (UA) >=1000 H NEGATIVE mg/dL Urine Ketones NEGATIVE NEGATIVE mg/dL Urine Occult Blood SMALL H NEGATIVE Urine Nitrate NEGATIVE NEGATIVE Urine Bilirubin NEGATIVE NEGATIVE mg/dL Urine Urobilinogen 0.2 0.2-1.0 mg/dL Urine Leukocyte Esterase 25 H NEGATIVE Farheen/uL Urine RBC 6-10 H 0-1 /HPF Urine WBC 11-25 H 0-1 /HPF Urine Squamous Epithelial Cells RARE 0-2 /HPF Urine Bacteria None None Seen /HPF Urine Yeast RARE None Seen /HPF White Blood Count 13.9 H 4.8-10.8 K/uL Red Blood Count 5.34 4.50-6.20 MIL/uL Hemoglobin 15.4 14.0-18.0 g/dL Hematocrit 43.9 42-54 % Mean Corpuscular Volume 82.2 79-99 fL Mean Corpuscular Hemoglobin 28.8 27.0-33.0 pg Mean Corpuscular Hemoglobin Concent 35.1 32.0-36.0 g/dL Red Cell Distribution Width 12.6 11.0-15.5 % Platelet Count 303 130-400 K/uL Mean Platelet Volume 9.4 7.5-10.5 fL Immature Granulocyte % (Auto) 0.6 0-1 % Neutrophils (%) (Auto) 75.7 40.0-77.0 % Lymphocytes (%) (Auto) 13.3 L 21.0-51.0 % Monocytes (%) (Auto) 8.8 3.0-13.0 % Eosinophils (%) (Auto) 1.3 0.0-8.0 % Basophils (%) (Auto) 0.3 0.0-5.0 % Neutrophils # (Auto) 10.5 H 1.8-7.7 K/uL Lymphocytes # (Auto) 1.9 1.0-4.8 K/uL Monocytes # (Auto) 1.2 H 0.1-1.0 K/uL Eosinophils # (Auto) 0.18 0.00-0.70 K/uL Basophils # (Auto) 0.04 0.00-0.20 K/uL Absolute Immature Granulocyte (auto 0.08 0-1 K/uL Nucleated Red Blood Cells 0.0 0.0-0.19 % Sodium Level 132 L 136-145 mmol/L Potassium Level 4.6 3.5-5.1 mmol/L Chloride Level 96 L 101-111 mmol/L Carbon Dioxide Level 30 21-32 mmol/L Blood Urea Nitrogen 8 7-18 mg/dL Creatinine 0.9 0.5-1.3 mg/dL Glomerular Filtration Rate Calc 103 >90 mL/min Random Glucose 492 *H 70-105 mg/dL Total Calcium 9.3 8.5-10.1 mg/dL Lipase 227 H 16-77 U/L DIAGNOSTICS / RADIOLOGY: [ ] ASSESSMENT: Acute pancreatitis POA Hyperglycemia due to uncontrolled diabetes POA Uncontrolled hypertension POA Hyperlipidemia POA Pseudohyponatremia due to hyperglycemia POA Medical noncompliance POA Homelessness POA Suspected acute urinary tract infection POA Nonobstructing left renal stone per CT POA Mild bilateral adrenal gland hyperplasia per CT POA Nicotine dependence PLAN: We will admit patient in medical surgical We will keep patient nothing by mouth We will start NS @ 125 ml / hr and re evaluate We will start on Rocephin 1 g IV daily for empiric coverage We will start on Famotidine 20 mg IV bid for GI prophylaxis We will replace electrolytes as needed per protocol We will start on insulin sliding scale q.4 hours with hypoglycemia protocol We will add prn medication for fever,pain,nausea and vomiting We will reconcile home meds once medlist available Counseled on cigarette smoking cessation Case management and social welfare clerk service requested We will seek endocrinology consultation POA We will request labs in am Further orders to follow depending on above results Case discussed with attending physician and came up with above treatment and plan of care. ADVANCED CARE PLANNING 1. Which of the following were discussed? Hospice Care - No Therapeutic options - Yes Advance Directives - No Other discussions - 2. Discussed with who? Patient 3. Voluntary nature of this service was explained to the patient? Yes 4. Amount of time spent - _25 5. Reviewed by Physician? (if this service was performed by NPP) Yes Patient seen and examined by me. Agree with note by CAR JOCKEY SEE ADDITIONAL ORDERS PER CHART DISCUSSED WITH NURSING STAFF JESSICA SUTTON TALENT ACQUISITION ADMINISTRATOR Jan 15, 2024 21:44
[2024-01-15] MEDS ORDERED: GLUCAGON 1MG KIT 1 MG ML IM PRN (22:00)
[2024-01-15] MEDS ORDERED: ondanSETRON 4MG INJ IV PRN (22:00)
[2024-01-15] MEDS ORDERED: MAGNESIUM 2GM PREMIX 50ML 50 ML IV PRN (22:00)
[2024-01-15] MEDS ORDERED: morPHINE 2 MG SYG IV PRN (22:00)
[2024-01-15] MEDS ORDERED: DEXTROSE 50%-WATER 50 ML DISP.SYRIN IV PRN (22:00)
[2024-01-15] MEDS ORDERED: PoTASSium chloRIDE 20MEQ/100ML 100 ML IV PRN (22:00)
[2024-01-15] MEDS: 0.9%NACL 1000ML 1,000 ML IV SCH (22:05)
[2024-01-15] MEDS: cefTRIAXone 1G VIAL IVPB SCH (22:05)
[2024-01-15] MEDS: INSULIN humuLIN R 100 UNIT/ML 3ML SQ SCH (22:07)
[2024-01-15] MEDS ORDERED: morPHINE 2 MG SYG IVP PRN (23:00)
[2024-01-15 23:30] VITALS: O2SAT 96
[2024-01-16 01:06] VITALS: BP 158/92; PULSE 95; RESP 18; TEMP 98.1
--- NOTE | 2024-01-16 05:24 | NUR ---
REFUSAL FOR BLOOD DRAW/BP CHECK REPEATEDLY REFUSES BLOOD DRAW/ VITALS CHECK DESPITE EXPLANATION TO BENEFITS OF COMPLIANCE AND RISKS ASSOCIATED WITH NON=COMPLIANCE TO MD ORDERS,PRESENT AT SCENE WORK ORDER DETAILER AND HOUSEKEEPING MANAGER WITH MEG Addendum: 01/16/24 at 0527 by SHAUNA PERRY RN RN Amended: Links added.
[2024-01-16 07:57] VITALS: BP 174/88; PULSE 70; RESP 19; TEMP 97.7
[2024-01-16 08:00] VITALS: O2SAT 96
[2024-01-16 08:26] LABS: BASOPHILS # (AUTO) 0.05 K/uL (0.00-0.20); BASOPHILS % (AUTO) 0.4 % (0.0-5.0); EOSINOPHILS # (AUTO) 0.15 K/uL (0.00-0.70); EOSINOPHILS % (AUTO) 1.1 % (0.0-8.0); HEMATOCRIT 44.5 % (42-54); IMMATURE GRANULOCYTE ABSOLUTE 0.05 K/uL (0-1); LYMPHOCYTES # (AUTO) 1.9 K/uL (1.0-4.8); LYMPHOCYTES % (AUTO) 13.3 % (21.0-51.0); MEAN CORPUSCULAR HEMOGLOBIN 28.9 pg (27.0-33.0); MEAN CORPUSCULAR HGB CONC 34.6 g/dL (32.0-36.0); MEAN CORPUSCULAR VOLUME 83.5 fL (79-99); MONOCYTES # (AUTO) 1.2 K/uL (0.1-1.0); MONOCYTES % (AUTO) 8.3 % (3.0-13.0); NEUTROPHILS # (AUTO) 10.6 K/uL (1.8-7.7); NEUTROPHILS % (AUTO) 76.5 % (40.0-77.0); PLATELET COUNT (AUTO) 214 K/uL (130-400); RED BLOOD CELL COUNT(AUTO) 5.33 MIL/uL (4.50-6.20); RED CELL DISTRIBUTION WIDTH 12.5 % (11.0-15.5); WHITE BLOOD COUNT (AUTO) 13.9 K/uL (4.8-10.8)
[2024-01-16 08:35] LABS: HEMOGLOBIN A1C 11.7 % (4.0-6.0)
[2024-01-16] MEDS: FAMOTIDINE 20MG VIAL IV SCH (08:40)
[2024-01-16 08:50] LABS: ALBUMIN 2.2 g/dL (3.5-5.0); BILIRUBIN,TOTAL 0.4 mg/dL (0.2-1.0); CREATININE 0.8 mg/dL (0.5-1.3); MAGNESIUM 1.6 mg/dL (1.80-2.40); POTASSIUM 4.6 mmol/L (3.5-5.1); THYROID STIMULATING HORMONE 0.92 uIU/mL (0.36-3.74); TOTAL PROTEIN, SERUM 6.3 g/dL (6.0-8.3)
[2024-01-16] MEDS: hydrALAZine 20MG/ML VIAL IV PRN (09:07)
[2024-01-16 09:55] VITALS: BP 143/93; PULSE 73
--- NOTE | 2024-01-16 10:55 | PN ---
[facility] PROGRESS NOTE Date of Service: Jan 16, 2024 Time of Service: 10:49 SUBJECTIVE: [ ] This is a 49-year-old male, homeless with past medical history of fibromyalgia, hypertension, hyperlipidemia diabetes who presented to the ER for complaints of right upper quadrant and left lower quadrant abdominal pain associated with nausea and vomiting for 2 days.Patient is not cooperative during my evaluation.Patient denies fever,chills ,chest pain,palpitation and shortness of breath.Patient states he is not taking his medication and not checking his blood sugar and blood pressure because he has no access .Patient states he smoke 1/2 pack of cigarette a day and denies alcohol and recreational drug use.Patient was recently admitted in this facility on 12/12/2023 for chest pain and hyperglycemia and on 12/16/2023 he decided to leave A. Latest vital signs temperature 98.2, heart rate 84, blood pressure 164/91 saturation 99% on room air. Labs: WBC 13.9, hemoglobin 15.4, hematocrit 43.9 platelet count 303. Sodium 132, glucose 492 to 298 and lipase 227. Urinalysis positive esterase. CT abdomen and pelvis with contrast result revealed 2 mm nonobstructing left renal stone. Findings suggestive of mild bilateral adrenal gland hyperplasia. Chronic bilateral L5 spondylolysis contributing to low-grade 3 mm anterolisthesis of L5 upon S1. A mild thoracolumbar spondylosis. While in the ER patient received insulin 15 units IV. NS 2L bolus, Zofran 4 mg, Toradol 30 mg. We will admit patient for further medical management. 01/16/24 Patient is seen and examined at bedside in room 314. He is awake, alert and oriented x3. patient is a poor historian and does not answer many questions. He complains of generalized abdominal pain, not radiating to back, denies nausea or vomitings or diarrhea. He is very noncompliant with his medication and refused labs this morning. Remarkable labs are white count 13.9, sodium 135, random glucose 391, HbA1c 11.7, magnesium 1.6, lipase 196. His blood pressure has been consistently elevated since he came to the ER. We will start him on p.r.n. hydralazine if systolic is above 170. Could not reconcile his home meds. REVIEW OF SYSTEMS CONSTITUTIONAL: Denies fevers, chills, or night sweats. No unintentional weight loss reported. NEUROLOGICAL: Denies headache, amaurosis fugax, motor weakness, sensory deficit, vertigo/spinning sensation, gait abnormalities, or tremors. ENT: No hearing loss, otalgia, otorrhea, rhinitis, rhinorrhea, hoarseness, or sore throat. CARDIOVASCULAR: Denies any exertional angina, dyspnea on exertion, orthopnea, paroxysmal nocturnal dyspnea, palpitations, life-threatening arrhythmias, claudication. PULMONARY: Denies any shortness of breath, cough, phlegm/sputum, hemoptysis, pleuritic chest pain. SLEEP: Denies morning headaches, daytime somnolence or napping. Denies difficulty falling asleep, staying asleep, waking from sleep. Denies knowledge of snoring. GASTROINTESTINAL: generalised abdominal pain, Denies any type of dysphagia to either liquids or solids. Denies nausea, vomiting, pyrosis, early satiety, abdominal pain, diarrhea, constipation, or changes in stool consistency or caliber. Denies coffee-ground emesis, hematemesis, hematochezia, or melanotic stools. GENITOURINARY: Denies frequency, urgency, nocturia, hematuria or incontinence (Storage/Irritative symptoms.) Low urinary stream, straining to void, urinary intermittency or hesitancy, splitting of the voiding stream, terminal dribbling. ENDOCRINOLOGIC: Denies polyuria, polydipsia, polyphagia or heat/cold intolerances. HEMATOLOGIC: Denies thrombophilia/previous clots, or coagulopathy/bleeding disorders. ONCOLOGIC: Denies personal history of malignancy. DERMATOLOGIC: Denies rashes or pruritus. PSYCHIATRIC: Denies any suicidal or homicidal ideation. Denies hallucinations. PHYSICAL EXAM GENERAL APPEARANCE: The patient is awake, alert, and oriented, in no acute cardiopulmonary distress. NEUROLOGICAL: Cranial nerves II-XII grossly intact. Motor is 5/5 in bilateral upper and lower extremities proximal to distal. No sensory deficits. HEENT: Face is symmetric. Pupils are equal and reactive. Extraocular movements are intact. NECK: Supple. No JVD. No thyromegaly. No submental, submandibular, pre- /postauricular, occipital or supraclavicular lymphadenopathy. CHEST: Normal chest expansion. No Telemetry. LUNGS: Absence of any rales, rhonchi or any wheezing. CARDIOVASCULAR: Regular. S1 and S2 normal. No appreciable rubs, murmurs or gallops. ABDOMEN: Soft, nontender, and nondistended. There is no rebound, voluntary guarding, or rigidity. : Deferred. No Rust. EXTREMITIES: Non-edematous and not cyanotic. No clubbing. Good capillary refill. SKIN: No skin breakdown. Vital Signs (last 8hr) Date Time Temp Pulse Resp B/P (MAP) Pulse Ox O2 Delivery O2 Flow Rate FiO2 01/16/24 09:55 73 143/93 01/16/24 07:57 97.7 70 19 174/88 95 Room Air LABS: Laboratory: Test 01/16/24 10:30 01/16/24 10:17 01/16/24 08:20 01/15/24 19:00 Range/Units Whole Blood Glucose 418 *H 70-110 MG/DL Bedside Glucose Comment Notified Nurse Lactic Acid Level 1.7 0.8-2.5 mmol/L White Blood Count 13.9 H 4.8-10.8 K/uL Red Blood Count 5.33 4.50-6.20 MIL/uL Hemoglobin 15.4 14.0-18.0 g/dL Hematocrit 44.5 42-54 % Mean Corpuscular Volume 83.5 79-99 fL Mean Corpuscular Hemoglobin 28.9 27.0-33.0 pg Mean Corpuscular Hemoglobin Concent 34.6 32.0-36.0 g/dL Red Cell Distribution Width 12.5 11.0-15.5 % Platelet Count 214 # 130-400 K/uL Mean Platelet Volume 9.1 7.5-10.5 fL Immature Granulocyte % (Auto) 0.4 0-1 % Neutrophils (%) (Auto) 76.5 40.0-77.0 % Lymphocytes (%) (Auto) 13.3 L 21.0-51.0 % Monocytes (%) (Auto) 8.3 3.0-13.0 % Eosinophils (%) (Auto) 1.1 0.0-8.0 % Basophils (%) (Auto) 0.4 0.0-5.0 % Neutrophils # (Auto) 10.6 H 1.8-7.7 K/uL Lymphocytes # (Auto) 1.9 1.0-4.8 K/uL Monocytes # (Auto) 1.2 H 0.1-1.0 K/uL Eosinophils # (Auto) 0.15 0.00-0.70 K/uL Basophils # (Auto) 0.05 0.00-0.20 K/uL Absolute Immature Granulocyte (auto 0.05 0-1 K/uL Nucleated Red Blood Cells 0.0 0.0-0.19 % Sodium Level 135 L 136-145 mmol/L Potassium Level 4.6 3.5-5.1 mmol/L Chloride Level 102 101-111 mmol/L Carbon Dioxide Level 28 21-32 mmol/L Blood Urea Nitrogen 11 7-18 mg/dL Creatinine 0.8 0.5-1.3 mg/dL Glomerular Filtration Rate Calc 107 >90 mL/min Random Glucose 391 H 70-105 mg/dL Hemoglobin A1c 11.7 H 4.0-6.0 % Estimated Average Glucose (eAG) 289 H 70-126 mg/dL Total Calcium 8.8 8.5-10.1 mg/dL Magnesium Level 1.60 L 1.80-2.40 mg/dL Total Bilirubin 0.4 0.2-1.0 mg/dL Aspartate Amino Transf (AST/SGOT) 27 10-37 U/L Alanine Aminotransferase (ALT/SGPT) 18 12-78 U/L Alkaline Phosphatase 107 50-136 U/L Total Protein 6.3 6.0-8.3 g/dL Albumin 2.2 L 3.5-5.0 g/dL Triglycerides Level 71 30-200 mg/dL Cholesterol Level 101 <200 mg/dL LDL Cholesterol 54 0-99 mg/dL HDL Cholesterol 39 29-71 mg/dL Amylase Level 56 25-115 U/L Lipase 196 H 16-77 U/L Thyroid Stimulating Hormone (TSH) 0.92 # 0.36-3.74 uIU/mL Urine Color COLORLESS YELLOW Urine Appearance CLEAR CLEAR Urine pH 6.0 5.0-8.0 Urine Specific [place] 1.025 1.001-1.031 Urine Protein 70 H NEGATIVE mg/dL Urine Glucose (UA) >=1000 H NEGATIVE mg/dL Urine Ketones NEGATIVE NEGATIVE mg/dL Urine Occult Blood SMALL H NEGATIVE Urine Nitrate NEGATIVE NEGATIVE Urine Bilirubin NEGATIVE NEGATIVE mg/dL Urine Urobilinogen 0.2 0.2-1.0 mg/dL Urine Leukocyte Esterase 25 H NEGATIVE Farheen/uL Urine RBC 6-10 H 0-1 /HPF Urine WBC 11-25 H 0-1 /HPF Urine Squamous Epithelial Cells RARE 0-2 /HPF Urine Bacteria None None Seen /HPF Urine Yeast RARE None Seen /HPF Current Medications Medications (Trade) Dose Ordered Sig/Christofer Route PRN Reason Start Time Stop Time Status Last Admin Dose Admin Ceftriaxone Sodium (ROCEphine 1G INJ) 1 gm Q24H IVPB 01/15/24 22:00 01/25/24 21:59 01/15/24 22:05 1 GM Dextrose (D50w) 50 ml AD PRN IV HYPOGLYCEMIA PROTOCOL 01/15/24 22:00 02/14/24 21:59 Famotidine (Pepcid 20mg Vial) 20 mg BID IV 01/16/24 09:00 02/15/24 08:59 01/16/24 08:40 20 MG Glucagon (Glucagon 1mg Kit) 1 mg AD PRN IM HYPOGLYCEMIA PROTOCOL 01/15/24 22:00 02/14/24 21:59 Hydralazine HCl (APRESOLine 20MG INJ) 10 mg Q6H PRN IV ADMINISTER FOR SBP > 160 01/15/24 22:30 02/14/24 22:29 01/16/24 09:07 10 MG Insulin Human Regular (humuLIN R 100 UNIT/ML 3ML) INSULIN SLIDING SCAL... Q4H SQ 01/15/24 22:00 02/14/24 21:59 01/16/24 10:38 16 UNIT Magnesium Sulfate 50 ml @ 0 mls/hr PROTOCOL PRN IV OTHER [SEE ORDER COMMENTS] 01/15/24 22:00 02/14/24 21:59 Morphine Sulfate (morPHINE 2MG SYG) 2 mg Q4H PRN IV MODERATE PAIN (4-6) 01/15/24 22:00 01/15/24 22:49 DC Morphine Sulfate (morPHINE 2MG SYG) 2 mg Q4H PRN IVP SEVERE PAIN (7-10) 01/15/24 23:00 01/22/24 22:59 Ondansetron HCl (zoFRAN 4MG INJ) 4 mg Q6H PRN IV NAUSEA/VOMITING 01/15/24 22:00 02/14/24 21:59 Potassium Chloride 100 ml @ 50 mls/hr AD PRN IV POTASSIUM PROTOCOL 01/15/24 22:00 02/14/24 21:59 Sodium Chloride 1,000 ml @ 125 mls/hr Q8H IV 01/15/24 22:00 02/14/24 21:59 01/16/24 05:04 125 MLS/HR DIAGNOSTICS / RADIOLOGY: [ ] ASSESSMENT: Acute pancreatitis POA Hyperglycemia due to uncontrolled diabetes POA Uncontrolled hypertension POA Hyperlipidemia POA Pseudohyponatremia due to hyperglycemia POA Medical noncompliance POA Homelessness POA Suspected acute urinary tract infection POA Nonobstructing left renal stone per CT POA Mild bilateral adrenal gland hyperplasia per CT POA Nicotine dependence PLAN: We will admit patient in medical surgical We will keep patient nothing by mouth We will start NS @ 125 ml / hr and re evaluate We will start on Rocephin 1 g IV daily for empiric coverage We will start on Famotidine 20 mg IV bid for GI prophylaxis We will replace electrolytes as needed per protocol We will start on insulin sliding scale q.4 hours with hypoglycemia protocol We will add prn medication for fever,pain,nausea and vomiting We will reconcile home meds once medlist available Counseled on cigarette smoking cessation Case management and social services director service requested We will seek endocrinology consultation POA We will request labs in am Further orders to follow depending on above results Case discussed with attending physician and came up with above treatment and plan of care. ATTESTATION BY PHYSICIAN I have seen and examined the patient. I reviewed the documentation, medical decision making, and treatment plan as noted by the resident provider above. I agree with the findings and plan of care. Danielle Edouard MD, NIHITHA MD Jan 16, 2024 10:55
--- NOTE | 2024-01-16 11:20 | NUR ---
DCP: HOMELESS -Pt originally from [place]. Pt has been homeless for 2 years. He and have been 5yrs, she lives in [place] with their 2 sons. Pt states he has stayed his limit for the year at [facility] and [facility] and now is just staying on streets. Pt states he will not go elsewhere because he wants to be able to see his kids. Pt has a walker with seat. PCP is Dr Perez and uses [facility] for rx. DCP is to return to streets [place] provided. Pt states he has no other family and refused to give information for ER contact Addendum: 01/16/24 at 1123 by PJ OSEGUERA Amended: Links added.
[2024-01-16 11:47] VITALS: PULSE 73; RESP 20; TEMP 97.7
[2024-01-16] MEDS: INSULIN GLARgine 100 UNITS/ML 10 ML VIAL SQ ONE (13:15)
--- NOTE | 2024-01-16 13:34 | NUR ---
NOTE PATIENT REFUSED SCHEDULED DOSE OF LANTUS AND GLUCOSE CHECK, EDUCATED PATIENT ON IMPORTANCE, PATIENT VERBALIZED UNDERSTANDING BUT STILL REFUSED, DR CHATMAN PRESENT AT BEDSIDE AT THIS TIME
[2024-01-16] MEDS: INSULIN humuLIN R 100 UNIT/ML 3ML SQ SCH (16:36)
--- NOTE | 2024-01-16 22:19 | NUR ---
WAS NOTIFIED BY CANDIDO BUENO THAT PATIENT IS NOT ALLOWING HER TO CHECK VITAL SIGNS AND/OR BLOOD SUGAR. SHE SAID HE DIDN'T VERBALLY RESPOND TO HER. I TOO WENT TO ASK HIM. HE UNCOVERED HIS HEAD AND LOOKED AT ME. TOLD HIM HE HAD MEDICATIONS DUE AND ABOUT THE BLOOD SUGAR CHECK. HE COVERED HIS HEAD AGAIN AND NODDING HIS HEAD FROM SIDE TO SIDE. ASKED HIM TO CONFIRM "YOU DO NOT WANT THE MEDICINES" AND HE VERBALLY MOANED A YES.
[2024-01-17] VITALS (7 sets, daily range): BP systolic 156–189; BP diastolic 87–102; PULSE 67–75; RESP 19; TEMP 97.6–98.1; O2SAT 97
--- NOTE | 2024-01-17 04:40 | NUR ---
0440 PATIENT REFUSES LAB WORK PER TELEPHONE SERVICES SALES REPRESENTATIVE. WENT TO VERIFY AND HE SAYS NO. SPOKE TO HIM FOR A FEW MINUTES. SAYS THAT HE DOES NOT LIKE TO BE BOTHERED WHEN HE IS RESTING AND THAT IS WHY HE "SIGNED THE PAPER". HE WILL ALLOW ME TO GIVE HIM ROCEPHIN (THAT HE HAD REFUSED EARLIER) AND ALSO MORPHINE FOR ABDOMINAL PAIN. WHEN I FLUSHED IV, IT WAS TENDER. REMOVED IV. TOLD HIM A NEW IV WILL BE NEEDED AND IF HE ALLOWED. HE SAID YES. GOT SUPPLIES AND TOOK A LOOK BUT WAS NOT ABLE TO FIND A SUITABLE SITE. I LET THE PATIENT KNOW THAT I WOULD ASK A COLLEAGUE TO TRY AND WILL COME BACK. 0530 RETURNED WITH ANOTHER NURSE TO TRY STARTING IV, PATIENT HAS COVERED HIS HEAD WITH SHEET AND WOULD NOT ANSWER WHEN SPEAKING TO HIM OR WHEN CALLED UPON. TRIED 3 TIMES. NURSE AIDE ALSO SAID HE DID NOT ALLOW HER TO TAKE VITAL SIGNS.
--- NOTE | 2024-01-17 09:53 | PN ---
[facility] PROGRESS NOTE Date of Service: Jan 17, 2024 Time of Service: 09:23 SUBJECTIVE: [ ] This is a 49-year-old male, homeless with past medical history of fibromyalgia, hypertension, hyperlipidemia diabetes who presented to the ER for complaints of right upper quadrant and left lower quadrant abdominal pain associated with nausea and vomiting for 2 days.Patient is not cooperative during my evaluation.Patient denies fever,chills ,chest pain,palpitation and shortness of breath.Patient states he is not taking his medication and not checking his blood sugar and blood pressure because he has no access .Patient states he smoke 1/2 pack of cigarette a day and denies alcohol and recreational drug use.Patient was recently admitted in this facility on 12/12/2023 for chest pain and hyperglycemia and on 12/16/2023 he decided to leave A. Latest vital signs temperature 98.2, heart rate 84, blood pressure 164/91 saturation 99% on room air. Labs: WBC 13.9, hemoglobin 15.4, hematocrit 43.9 platelet count 303. Sodium 132, glucose 492 to 298 and lipase 227. Urinalysis positive esterase. CT abdomen and pelvis with contrast result revealed 2 mm nonobstructing left renal stone. Findings suggestive of mild bilateral adrenal gland hyperplasia. Chronic bilateral L5 spondylolysis contributing to low-grade 3 mm anterolisthesis of L5 upon S1. A mild thoracolumbar spondylosis. While in the ER patient received insulin 15 units IV. NS 2L bolus, Zofran 4 mg, Toradol 30 mg. We will admit patient for further medical management. 01/16/24 Patient is seen and examined at bedside in room 314. He is awake, alert and oriented x3. patient is a poor historian and does not answer many questions. He complains of generalized abdominal pain, not radiating to back, denies nausea or vomitings or diarrhea. He is very noncompliant with his medication and refused labs this morning. Remarkable labs are white count 13.9, sodium 135, random glucose 391, HbA1c 11.7, magnesium 1.6, lipase 196. His blood pressure has been consistently elevated since he came to the ER. We will start him on p.r.n. hydralazine if systolic is above 170. Could not reconcile his home meds. 01/16 patient is seen and examined with the attending reviewed chart. Acute pancreatitis has resolved. Normal triglycerides Patient with uncontrolled diabetes A1c 11.7 Trust Advisor consulted this morning blood sugars 418 receive one time dose of Lantus premeal insulin. we will wait for further recommendations from specialists. As per primary nurse patient refused glucometer. REVIEW OF SYSTEMS CONSTITUTIONAL: Denies fevers, chills, or night sweats. No unintentional weight loss reported. NEUROLOGICAL: Denies headache, amaurosis fugax, motor weakness, sensory def icit, vertigo/spinning sensation, gait abnormalities, or tremors. ENT: No hearing loss, otalgia, otorrhea, rhinitis, rhinorrhea, hoarseness, or sore throat. CARDIOVASCULAR: Denies any exertional angina, dyspnea on exertion, orthopnea, paroxysmal nocturnal dyspnea, palpitations, life-threatening arrhythmias, claudication. PULMONARY: Denies any shortness of breath, cough, phlegm/sputum, hemoptysis, pleuritic chest pain. SLEEP: Denies morning headaches, daytime somnolence or napping. Denies difficulty falling asleep, staying asleep, waking from sleep. Denies knowledge of snoring. GASTROINTESTINAL: generalised abdominal pain, Denies any type of dysphagia to either liquids or solids. Denies nausea, vomiting, pyrosis, early satiety, abdominal pain, diarrhea, constipation, or changes in stool consistency or caliber. Denies coffee-ground emesis, hematemesis, hematochezia, or melanotic stools. GENITOURINARY: Denies frequency, urgency, nocturia, hematuria or incontinence (Storage/Irritative symptoms.) Low urinary stream, straining to void, urinary intermittency or hesitancy, splitting of the voiding stream, terminal dribbling. ENDOCRINOLOGIC: Denies polyuria, polydipsia, polyphagia or heat/cold intolerances. HEMATOLOGIC: Denies thrombophilia/previous clots, or coagulopathy/bleeding disorders. ONCOLOGIC: Denies personal history of malignancy. DERMATOLOGIC: Denies rashes or pruritus. PSYCHIATRIC: Denies any suicidal or homicidal ideation. Denies hallucinations. PHYSICAL EXAM GENERAL APPEARANCE: The patient is awake, alert, and oriented, in no acute cardiopulmonary distress. NEUROLOGICAL: Cranial nerves II-XII grossly intact. Motor is 5/5 in bilateral upper and lower extremities proximal to distal. No sensory deficits. HEENT: Face is symmetric. Pupils are equal and reactive. Extraocular movements are intact. NECK: Supple. No JVD. No thyromegaly. No submental, submandibular, pre- /postauricular, occipital or supraclavicular lymphadenopathy. CHEST: Normal chest expansion. No Telemetry. LUNGS: Absence of any rales, rhonchi or any wheezing. CARDIOVASCULAR: Regular. S1 and S2 normal. No appreciable rubs, murmurs or gallops. ABDOMEN: Soft, nontender, and nondistended. There is no rebound, voluntary guarding, or rigidity. : Deferred. No Rust. EXTREMITIES: Non-edematous and not cyanotic. No clubbing. Good capillary refill. SKIN: No skin breakdown. Vital Signs (last 8hr) Date Time Temp Pulse Resp B/P (MAP) Pulse Ox O2 Delivery O2 Flow Rate FiO2 01/17/24 08:00 98.1 75 19 179/89 96 Room Air LABS: Laboratory: Test 01/16/24 10:30 01/16/24 10:17 01/16/24 08:20 01/15/24 19:00 Range/Units Whole Blood Glucose 418 *H 70-110 MG/DL Bedside Glucose Comment Notified Nurse Lactic Acid Level 1.7 0.8-2.5 mmol/L White Blood Count 13.9 H 4.8-10.8 K/uL Red Blood Count 5.33 4.50-6.20 MIL/uL Hemoglobin 15.4 14.0-18.0 g/dL Hematocrit 44.5 42-54 % Mean Corpuscular Volume 83.5 79-99 fL Mean Corpuscular Hemoglobin 28.9 27.0-33.0 pg Mean Corpuscular Hemoglobin Concent 34.6 32.0-36.0 g/dL Red Cell Distribution Width 12.5 11.0-15.5 % Platelet Count 214 # 130-400 K/uL Mean Platelet Volume 9.1 7.5-10.5 fL Immature Granulocyte % (Auto) 0.4 0-1 % Neutrophils (%) (Auto) 76.5 40.0-77.0 % Lymphocytes (%) (Auto) 13.3 L 21.0-51.0 % Monocytes (%) (Auto) 8.3 3.0-13.0 % Eosinophils (%) (Auto) 1.1 0.0-8.0 % Basophils (%) (Auto) 0.4 0.0-5.0 % Neutrophils # (Auto) 10.6 H 1.8-7.7 K/uL Lymphocytes # (Auto) 1.9 1.0-4.8 K/uL Monocytes # (Auto) 1.2 H 0.1-1.0 K/uL Eosinophils # (Auto) 0.15 0.00-0.70 K/uL Basophils # (Auto) 0.05 0.00-0.20 K/uL Absolute Immature Granulocyte (auto 0.05 0-1 K/uL Nucleated Red Blood Cells 0.0 0.0-0.19 % Sodium Level 135 L 136-145 mmol/L Potassium Level 4.6 3.5-5.1 mmol/L Chloride Level 102 101-111 mmol/L Carbon Dioxide Level 28 21-32 mmol/L Blood Urea Nitrogen 11 7-18 mg/dL Creatinine 0.8 0.5-1.3 mg/dL Glomerular Filtration Rate Calc 107 >90 mL/min Random Glucose 391 H 70-105 mg/dL Hemoglobin A1c 11.7 H 4.0-6.0 % Estimated Average Glucose (eAG) 289 H 70-126 mg/dL Total Calcium 8.8 8.5-10.1 mg/dL Magnesium Level 1.60 L 1.80-2.40 mg/dL Total Bilirubin 0.4 0.2-1.0 mg/dL Aspartate Amino Transf (AST/SGOT) 27 10-37 U/L Alanine Aminotransferase (ALT/SGPT) 18 12-78 U/L Alkaline Phosphatase 107 50-136 U/L Total Protein 6.3 6.0-8.3 g/dL Albumin 2.2 L 3.5-5.0 g/dL Triglycerides Level 71 30-200 mg/dL Cholesterol Level 101 <200 mg/dL LDL Cholesterol 54 0-99 mg/dL HDL Cholesterol 39 29-71 mg/dL Amylase Level 56 25-115 U/L Lipase 196 H 16-77 U/L Thyroid Stimulating Hormone (TSH) 0.92 # 0.36-3.74 uIU/mL Urine Color COLORLESS YELLOW Urine Appearance CLEAR CLEAR Urine pH 6.0 5.0-8.0 Urine Specific [place] 1.025 1.001-1.031 Urine Protein 70 H NEGATIVE mg/dL Urine Glucose (UA) >=1000 H NEGATIVE mg/dL Urine Ketones NEGATIVE NEGATIVE mg/dL Urine Occult Blood SMALL H NEGATIVE Urine Nitrate NEGATIVE NEGATIVE Urine Bilirubin NEGATIVE NEGATIVE mg/dL Urine Urobilinogen 0.2 0.2-1.0 mg/dL Urine Leukocyte Esterase 25 H NEGATIVE Farheen/uL Urine RBC 6-10 H 0-1 /HPF Urine WBC 11-25 H 0-1 /HPF Urine Squamous Epithelial Cells RARE 0-2 /HPF Urine Bacteria None None Seen /HPF Urine Yeast RARE None Seen /HPF Current Medications Medications (Trade) Dose Ordered Sig/Christofer Route PRN Reason Start Time Stop Time Status Last Admin Dose Admin Ceftriaxone Sodium (ROCEphine 1G INJ) 1 gm Q24H IVPB 01/15/24 22:00 01/25/24 21:59 01/15/24 22:05 1 GM Dextrose (D50w) 50 ml AD PRN IV HYPOGLYCEMIA PROTOCOL 01/15/24 22:00 02/14/24 21:59 Famotidine (Pepcid 20mg Vial) 20 mg BID IV 01/16/24 09:00 02/15/24 08:59 01/17/24 09:09 20 MG Glucagon (Glucagon 1mg Kit) 1 mg AD PRN IM HYPOGLYCEMIA PROTOCOL 01/15/24 22:00 02/14/24 21:59 Hydralazine HCl (APRESOLine 20MG INJ) 10 mg Q6H PRN IV ADMINISTER FOR SBP > 160 01/15/24 22:30 02/14/24 22:29 01/16/24 09:07 10 MG Insulin Human Regular (humuLIN R 100 UNIT/ML 3ML) 6 unit TIDAC SQ 01/16/24 17:00 02/15/24 16:59 Insulin Human Regular (humuLIN R 100 UNIT/ML 3ML) INSULIN SLIDING SCAL... Q4H SQ 01/15/24 22:00 02/14/24 21:59 01/16/24 10:38 16 UNIT Magnesium Sulfate 50 ml @ 0 mls/hr PROTOCOL PRN IV OTHER [SEE ORDER COMMENTS] 01/15/24 22:00 02/14/24 21:59 Morphine Sulfate (morPHINE 2MG SYG) 2 mg Q4H PRN IV MODERATE PAIN (4-6) 01/15/24 22:00 01/15/24 22:49 DC Morphine Sulfate (morPHINE 2MG SYG) 2 mg Q4H PRN IVP SEVERE PAIN (7-10) 01/15/24 23:00 01/22/24 22:59 Ondansetron HCl (zoFRAN 4MG INJ) 4 mg Q6H PRN IV NAUSEA/VOMITING 01/15/24 22:00 02/14/24 21:59 Potassium Chloride 100 ml @ 50 mls/hr AD PRN IV POTASSIUM PROTOCOL 01/15/24 22:00 02/14/24 21:59 Sodium Chloride 1,000 ml @ 125 mls/hr Q8H IV 01/15/24 22:00 02/14/24 21:59 01/17/24 04:51 125 MLS/HR DIAGNOSTICS / RADIOLOGY: [ ] ASSESSMENT: Acute pancreatitis POA Resolved Hyperglycemia due to uncontrolled diabetes POA A1c 11.7 Uncontrolled hypertension POA Hyperlipidemia POA Pseudohyponatremia due to hyperglycemia POA Medical noncompliance POA Homelessness POA Suspected acute urinary tract infection POA Nonobstructing left renal stone per CT POA Mild bilateral adrenal gland hyperplasia per CT POA Nicotine dependence noncompliance Social determinants with medical treatment PLAN: Remain in med surgical floor CLD: DM 1800 ADA [place] fluids continue on Rocephin 1 g IV daily for empiric coverage so far urine cultures negative supportive measures: DVT/GI:ppx cont to replace electrolytes as needed per protocol ongoing surveillance insulin sliding scale q.4 hours with hypoglycemia protocol A1c 11.7 DR Mccray Trust Advisor started premeal insulin and long acting. continue: add prn medication for fever,pain,nausea and vomiting provide Counseling cigarette smoking cessation We will request labs in am Further orders to follow depending on above results Case discussed with attending physician and came up with above treatment and plan of care. ATTESTATION BY PHYSICIAN I have seen and examined the patient. I reviewed the documentation, medical decision making, and treatment plan as noted by the mid-level provider above. I agree with the findings and plan of care. SAADIA CASTILLO MD, ELIZABETH NP Jan 17, 2024 09:53
--- NOTE | 2024-01-17 14:02 | NUR ---
PATIENTS BLOOD PRESSURE 180/100 MMHG. NO COMPLAINTS OF CHEST PAIN, NO SHORTNESS OF BREATH NOTED. PATIENT IS ALERT, ORIENTED IN PERSON, TIME AND PLACE. PATIENT HAS NO IV ACCESS. I MADE AN ATTEMPTED TO PLACE AN IV, PATIENT AGGRESSIVELY MOVED HIS HAND; NEEDLE ALMOST PUNCTURING MY SKIN. PATIENT NON COMPLIANT WITH TREATMENT AND IS COMBATIVE WITH STAFF. NOTIFY DR. CASTILLO ABOUT THE SITUATION. DR. CASTILLO SAID NOT TO TRY AN IV. VIEW ORDERS.
--- NOTE | 2024-01-17 14:45 | NUR ---
note Pt has no iv access at this time, patient is refusing piv placement, primary aware, notified angie dempsey
[2024-01-17] MEDS: hydrALAZine 25MG TABLET PO ONE (14:54)
[2024-01-17] MEDS: LoSARTan 25 MG TABLET PO SCH (14:59)
[2024-01-17] MEDS: hydrALAZine 25MG TABLET PO PRN (20:10)
--- NOTE | 2024-01-17 21:09 | CONS ---
CONSULT NOTE: endocrinology consult chief complaint: abdominal pain, nausea and vomiting reason for consult: uncontrolled dm-2 Date of Service: Jan 17, 2024 HISTORY OF PRESENT ILLNESS: This is a 49-year-old male, homeless with past medical history of fibromyalgia, hypertension, hyperlipidemia diabetes who presented to the ER for complaints of right upper quadrant and left lower quadrant abdominal pain associated with nausea and vomiting. Patient denies fever,chills ,chest pain,palpitation and shortness of breath.Patient states he is not taking his medication and not checking his blood sugar and blood pressure because he has no access .Patient states he smoke 1/2 pack of cigarette a day and denies alcohol and recreational drug use.Patient was recently admitted in this facility on 12/12/2023 for chest pain and hyperglycemia and on 12/16/2023 he decided to leave [facility]. Latest vital signs temperature 98.2, heart rate 84, blood pressure 164/91 saturation 99% on room air. Labs: WBC 13.9, hemoglobin 15.4, hematocrit 43.9 platelet count 303. Sodium 132, glucose 492 to 298 and lipase 227. Urinalysis positive esterase. CT abdomen and pelvis with contrast result revealed 2 mm nonobstructing left renal stone. Findings suggestive of mild bilateral adrenal gland hyperplasia. Chronic bilateral L5 spondylolysis contributing to low-grade 3 mm anterolisthesis of L5 upon S1. A mild thoracolumbar spondylosis. While in the ER patient received insulin 15 units IV. NS 2L bolus, Zofran 4 mg, Toradol 30 mg. he has dm-2 for many years. he does not take any diabetic meds and reports that he is homeless. REVIEW OF SYSTEMS CONSTITUTIONAL: Denies fevers, chills, or night sweats. No unintentional weight loss reported. NEUROLOGICAL: Denies headache, amaurosis fugax, motor weakness, sensory deficit, vertigo/spinning sensation, gait abnormalities, or tremors. ENT: No hearing loss, otalgia, otorrhea, rhinitis, rhinorrhea, hoarseness, or sore throat. CARDIOVASCULAR: Denies any exertional angina, dyspnea on exertion, orthopnea, paroxysmal nocturnal dyspnea, palpitations, life-threatening arrhythmias, claudication. PULMONARY: Denies any shortness of breath, cough, phlegm/sputum, hemoptysis, pleuritic chest pain. SLEEP: Denies morning headaches, daytime somnolence or napping. Denies difficu lty falling asleep, staying asleep, waking from sleep. Denies knowledge of snoring. ENDOCRINOLOGIC: Denies polyuria, polydipsia, polyphagia or heat/cold intolerances. HEMATOLOGIC: Denies thrombophilia/previous clots, or coagulopathy/bleeding disorders. ONCOLOGIC: Denies personal history of malignancy. DERMATOLOGIC: Denies rashes or pruritus. PSYCHIATRIC: Denies any suicidal or homicidal ideation. Denies hallucinations. PAST MEDICAL HISTORY: [ Hypertension, hyperlipidemia, diabetes and fibromyalgia] PAST SURGICAL HISTORY: [ Patient denies] PAST SOCIAL HISTORY: [ Patient is homeless. Patient admits to smoking one/half pack of cigarettes per day. Denies alcohol and recreational drug use] FAMILY HISTORY: [ Cardiovascular disease ] Coded Allergies: No Known Drug Allergies (Unverified Allergy, Unknown, 04/03/22) PHYSICAL EXAM GENERAL APPEARANCE: The patient is awake, alert, and oriented, in no acute cardiopulmonary distress. NEUROLOGICAL: Cranial nerves II-XII grossly intact. Motor is 5/5 in bilateral upper and lower extremities proximal to distal. No sensory deficits. HEENT: Face is symmetric. Pupils are equal and reactive. Extraocular movements are intact. NECK: Supple. No JVD. No thyromegaly. No submental, submandibular, pre- /postauricular, occipital or supraclavicular lymphadenopathy. CHEST: Normal chest expansion. No Telemetry. LUNGS: Absence of any rales, rhonchi or any wheezing. CARDIOVASCULAR: Regular. S1 and S2 normal. No appreciable rubs, murmurs or gallops. ABDOMEN: Soft, nontender, and nondistended. There is no rebound, voluntary guarding, or rigidity. : Deferred. No Rust. EXTREMITIES: Non-edematous and not cyanotic. No clubbing. Good capillary refill. SKIN: No skin breakdown. ASSESSMENT: Hyperglycemia due to uncontrolled diabetes POA hba1c 11.7% patient refuse glucose checks and insulin. Uncontrolled hypertension POA rule out hyperaldosteronism bilateral adrenal hyperplasia. CT shows no adenoma Acute pancreatitis POA Hyperlipidemia POA Pseudohyponatremia due to hyperglycemia POA Medical noncompliance POA Homelessness POA Suspected acute urinary tract infection POA Nonobstructing left renal stone per CT POA Mild bilateral adrenal gland hyperplasia per CT POA Nicotine dependence PLAN: start lantus 30 units daily start regular insulin 6 units qac before meals continue high dose ssi patient refused glucose checks and insulin. patient refused adrenal function tests. monitor glucose qx6 hourly. patient will need novolin 70/30 insulin 40 units before breakfast and 20 units before dinner. thanks for allowing me to participate in patient care and will continue to follow up. Vital Signs 01/17/24 01/17/24 08:00 19:00 Temp 97.5 Pulse 74 Resp 19 B/P (MAP) 173/89 Pulse Ox 97 O2 Delivery Room Air O2 Flow Rate 0 FiO2 21 Hematology Labs: Test 01/16/24 08:20 Range/Units White Blood Count 13.9 H 4.8-10.8 K/uL Red Blood Count 5.33 4.50-6.20 MIL/uL Hemoglobin 15.4 14.0-18.0 g/dL Hematocrit 44.5 42-54 % Mean Corpuscular Volume 83.5 79-99 fL Mean Corpuscular Hemoglobin 28.9 27.0-33.0 pg Mean Corpuscular Hemoglobin Concent 34.6 32.0-36.0 g/dL Red Cell Distribution Width 12.5 11.0-15.5 % Platelet Count 214 # 130-400 K/uL Mean Platelet Volume 9.1 7.5-10.5 fL Immature Granulocyte % (Auto) 0.4 0-1 % Neutrophils (%) (Auto) 76.5 40.0-77.0 % Lymphocytes (%) (Auto) 13.3 L 21.0-51.0 % Monocytes (%) (Auto) 8.3 3.0-13.0 % Eosinophils (%) (Auto) 1.1 0.0-8.0 % Basophils (%) (Auto) 0.4 0.0-5.0 % Neutrophils # (Auto) 10.6 H 1.8-7.7 K/uL Lymphocytes # (Auto) 1.9 1.0-4.8 K/uL Monocytes # (Auto) 1.2 H 0.1-1.0 K/uL Eosinophils # (Auto) 0.15 0.00-0.70 K/uL Basophils # (Auto) 0.05 0.00-0.20 K/uL Absolute Immature Granulocyte (auto 0.05 0-1 K/uL Nucleated Red Blood Cells 0.0 0.0-0.19 % Chemistry Labs: Test 01/17/24 19:26 01/16/24 10:30 01/16/24 10:17 01/16/24 08:20 Range/Units Whole Blood Glucose 397 H 70-110 MG/DL Bedside Glucose Comment Notified Nurse Lactic Acid Level 1.7 0.8-2.5 mmol/L Sodium Level 135 L 136-145 mmol/L Potassium Level 4.6 3.5-5.1 mmol/L Chloride Level 102 101-111 mmol/L Carbon Dioxide Level 28 21-32 mmol/L Blood Urea Nitrogen 11 7-18 mg/dL Creatinine 0.8 0.5-1.3 mg/dL Glomerular Filtration Rate Calc 107 >90 mL/min Random Glucose 391 H 70-105 mg/dL Hemoglobin A1c 11.7 H 4.0-6.0 % Estimated Average Glucose (eAG) 289 H 70-126 mg/dL Total Calcium 8.8 8.5-10.1 mg/dL Magnesium Level 1.60 L 1.80-2.40 mg/dL Total Bilirubin 0.4 0.2-1.0 mg/dL Aspartate Amino Transf (AST/SGOT) 27 10-37 U/L Alanine Aminotransferase (ALT/SGPT) 18 12-78 U/L Alkaline Phosphatase 107 50-136 U/L Total Protein 6.3 6.0-8.3 g/dL Albumin 2.2 L 3.5-5.0 g/dL Triglycerides Level 71 30-200 mg/dL Cholesterol Level 101 <200 mg/dL LDL Cholesterol 54 0-99 mg/dL HDL Cholesterol 39 29-71 mg/dL Amylase Level 56 25-115 U/L Lipase 196 H 16-77 U/L Thyroid Stimulating Hormone (TSH) 0.92 # 0.36-3.74 uIU/mL Current Medications Medications (Trade) Dose Ordered Sig/Christofer Route Start Time Stop Time Status Last Admin Dose Admin Ceftriaxone Sodium (ROCEphine 1G INJ) 1 gm Q24H IVPB 01/15/24 22:00 01/25/24 21:59 01/15/24 22:05 1 GM Famotidine (Pepcid 20mg Vial) 20 mg BID IV 01/16/24 09:00 02/15/24 08:59 01/17/24 09:09 20 MG Insulin Human Regular (humuLIN R 100 UNIT/ML 3ML) 6 unit TIDAC SQ 01/16/24 17:00 02/15/24 16:59 Insulin Human Regular (humuLIN R 100 UNIT/ML 3ML) INSULIN SLIDING SCAL... Q4H SQ 01/15/24 22:00 02/14/24 21:59 01/17/24 20:20 16 UNIT Losartan Potassium (CozAAR 25MG TAB) 25 mg BID PO 01/17/24 15:00 02/16/24 14:59 01/17/24 20:07 25 MG Sodium Chloride 1,000 ml @ 125 mls/hr Q8H IV 01/15/24 22:00 01/17/24 09:40 DC 01/17/24 04:51 125 MLS/HR MYRIAM FARMER MD Jan 17, 2024 21:09
--- NOTE | 2024-01-18 04:40 | NUR ---
PATIENT HAS CONTINUED TO REFUSED VITAL SIGN AND BLOOD SUGAR CHECKS DURING SHIFT. SENIOR DATA DEVELOPER SAYS HE DID NOT RESPOND TO HIM WHEN SHE WENT IN ROOM. I WENT IN TO SEE HIM. HE IS BREATHING WNL. NO DISTRESS NOTED. DOES NOT ANSWER OR SHOW ACKNOWLEDGEMENT. SENIOR DATA DEVELOPER SAYS WILL TRY AGAIN LATER THIS AM ONCE HE WAKES UP (SINCE YESTERDAY HE TOLD ME HE DID NOT LIKE TO BE BOTHERED WHEN HE IS RESTING).
--- NOTE | 2024-01-18 07:44 | NUR ---
PATIENT HAS REFUSED LAB DRAW RE-ATTEMPT.
[2024-01-18 08:00] VITALS: O2SAT 97
[2024-01-18] MEDS: INSULIN GLARgine 100 UNITS/ML 10 ML VIAL SQ SCH (09:00)
--- NOTE | 2024-01-18 09:11 | PN ---
[facility] PROGRESS NOTE Date of Service: Jan 18, 2024 Time of Service: 09:09 SUBJECTIVE: [ ] This is a 49-year-old male, homeless with past medical history of fibromyalgia, hypertension, hyperlipidemia diabetes who presented to the ER for complaints of right upper quadrant and left lower quadrant abdominal pain associated with nausea and vomiting for 2 days.Patient is not cooperative during my evaluation.Patient denies fever,chills ,chest pain,palpitation and shortness of breath.Patient states he is not taking his medication and not checking his blood sugar and blood pressure because he has no access .Patient states he smoke 1/2 pack of cigarette a day and denies alcohol and recreational drug use.Patient was recently admitted in this facility on 12/12/2023 for chest pain and hyperglycemia and on 12/16/2023 he decided to leave [facility]. Latest vital signs temperature 98.2, heart rate 84, blood pressure 164/91 saturation 99% on room air. Labs: WBC 13.9, hemoglobin 15.4, hematocrit 43.9 platelet count 303. Sodium 132, glucose 492 to 298 and lipase 227. Urinalysis positive esterase. CT abdomen and pelvis with contrast result revealed 2 mm nonobstructing left renal stone. Findings suggestive of mild bilateral adrenal gland hyperplasia. Chronic bilateral L5 spondylolysis contributing to low-grade 3 mm anterolisthesis of L5 upon S1. A mild thoracolumbar spondylosis. While in the ER patient received insulin 15 units IV. NS 2L bolus, Zofran 4 mg, Toradol 30 mg. We will admit patient for further medical management. 01/16/24 Patient is seen and examined at bedside in room 314. He is awake, alert and oriented x3. patient is a poor historian and does not answer many questions. He complains of generalized abdominal pain, not radiating to back, denies nausea or vomitings or diarrhea. He is very noncompliant with his medication and refused labs this morning. Remarkable labs are white count 13.9, sodium 135, random glucose 391, HbA1c 11.7, magnesium 1.6, lipase 196. His blood pressure has been consistently elevated since he came to the ER. We will start him on p.r.n. hydralazine if systolic is above 170. Could not reconcile his home meds. 01/16 patient is seen and examined with the attending reviewed chart. Acute pancreatitis has resolved. Normal triglycerides Patient with uncontrolled diabetes A1c 11.7 Transit Mix Operator consulted this morning blood sugars 418 receive one time dose of Lantus premeal insulin. we will wait for further recommendations from specialists. As per primary nurse patient refused glucometer. 05/19/23 the patient seen earlier this morning, patient agreed to have labs drawn, we will have social work faculty member consulted patient is homeless. Patient continues with elevated insulin instructed patient he needs to let nurses give him insulin REVIEW OF SYSTEMS CONSTITUTIONAL: Denies fevers, chills, or night sweats. No unintentional weight loss reported. NEUROLOGICAL: Denies headache, amaurosis fugax, motor weakness, sensory deficit, vertigo/spinning sensation, gait abnormalities, or tremors. ENT: No hearing loss, otalgia, otorrhea, rhinitis, rhinorrhea, hoarseness, or sore throat. CARDIOVASCULAR: Denies any exertional angina, dyspnea on exertion, orthopnea, paroxysmal nocturnal dyspnea, palpitations, life-threatening arrhythmias, claudication. PULMONARY: Denies any shortness of breath, cough, phlegm/sputum, hemoptysis, pleuritic chest pain. SLEEP: Denies morning headaches, daytime somnolence or napping. Denies difficulty falling asleep, staying asleep, waking from sleep. Denies knowledge of snoring. GASTROINTESTINAL: generalised abdominal pain, Denies any type of dysphagia to either liquids or solids. Denies nausea, vomiting, pyrosis, early satiety, abdominal pain, diarrhea, constipation, or changes in stool consistency or caliber. Denies coffee-ground emesis, hematemesis, hematochezia, or melanotic stools. GENITOURINARY: Denies frequency, urgency, nocturia, hematuria or incontinence (Storage/Irritative symptoms.) Low urinary stream, straining to void, urinary intermittency or hesitancy, splitting of the voiding stream, terminal dribbling. ENDOCRINOLOGIC: Denies polyuria, polydipsia, polyphagia or heat/cold intolerances. HEMATOLOGIC: Denies thrombophilia/previous clots, or coagulopathy/bleeding disorders. ONCOLOGIC: Denies personal history of malignancy. DERMATOLOGIC: Denies rashes or pruritus. PSYCHIATRIC: Denies any suicidal or homicidal ideation. Denies hallucinations. PHYSICAL EXAM GENERAL APPEARANCE: The patient is awake, alert, and oriented, in no acute cardiopulmonary distress. NEUROLOGICAL: Cranial nerves II-XII grossly intact. Motor is 5/5 in bilateral upper and lower extremities proximal to distal. No sensory deficits. HEENT: Face is symmetric. Pupils are equal and reactive. Extraocular movements are intact. NECK: Supple. No JVD. No thyromegaly. No submental, submandibular, pre- /postauricular, occipital or supraclavicular lymphadenopathy. CHEST: Normal chest expansion. No Telemetry. LUNGS: Absence of any rales, rhonchi or any wheezing. CARDIOVASCULAR: Regular. S1 and S2 normal. No appreciable rubs, murmurs or gallops. ABDOMEN: Soft, nontender, and nondistended. There is no rebound, voluntary guarding, or rigidity. : Deferred. No Rust. EXTREMITIES: Non-edematous and not cyanotic. No clubbing. Good capillary refill. SKIN: No skin breakdown. LABS: Laboratory: Test 01/17/24 19:26 01/16/24 10:30 01/16/24 10:17 Range/Units Whole Blood Glucose 397 H 70-110 MG/DL Bedside Glucose Comment Notified Nurse Lactic Acid Level 1.7 0.8-2.5 mmol/L Current Medications Medications (Trade) Dose Ordered Sig/Christofer Route PRN Reason Start Time Stop Time Status Last Admin Dose Admin Ceftriaxone Sodium (ROCEphine 1G INJ) 1 gm Q24H IVPB 01/15/24 22:00 01/25/24 21:59 01/15/24 22:05 1 GM Dextrose (D50w) 50 ml AD PRN IV HYPOGLYCEMIA PROTOCOL 01/15/24 22:00 02/14/24 21:59 Famotidine (Pepcid 20mg Vial) 20 mg BID IV 01/16/24 09:00 01/17/24 23:32 DC 01/17/24 09:09 20 MG Famotidine (Pepcid 20mg Tab) 20 mg BID PO 01/18/24 09:00 02/17/24 08:59 Glucagon (Glucagon 1mg Kit) 1 mg AD PRN IM HYPOGLYCEMIA PROTOCOL 01/15/24 22:00 02/14/24 21:59 Hydralazine HCl (APRESOLine 20MG INJ) 10 mg Q6H PRN IV ADMINISTER FOR SBP > 160 01/15/24 22:30 02/14/24 22:29 01/16/24 09:07 10 MG Hydralazine HCl ([id number] TAB) 25 mg Q8H PRN PO ADMINISTER FOR SBP > 160 01/17/24 15:00 02/16/24 14:59 01/17/24 20:10 25 MG Insulin Glargine (LANtus 100 UNITS/ML 10 ML VIAL) 30 units DAILY SQ 01/18/24 09:00 02/17/24 08:59 Insulin Human Regular (humuLIN R 100 UNIT/ML 3ML) 6 unit TIDAC SQ 01/16/24 17:00 02/15/24 16:59 Insulin Human Regular (humuLIN R 100 UNIT/ML 3ML) INSULIN SLIDING SCAL... Q4H SQ 01/15/24 22:00 02/14/24 21:59 01/17/24 20:20 16 UNIT Losartan Potassium (CozAAR 25MG TAB) 25 mg BID PO 01/17/24 15:00 02/16/24 14:59 01/17/24 20:07 25 MG Magnesium Sulfate 50 ml @ 0 mls/hr PROTOCOL PRN IV OTHER [SEE ORDER COMMENTS] 01/15/24 22:00 02/14/24 21:59 Morphine Sulfate (morPHINE 2MG SYG) 2 mg Q4H PRN IV MODERATE PAIN (4-6) 01/15/24 22:00 01/15/24 22:49 DC Morphine Sulfate (morPHINE 2MG SYG) 2 mg Q4H PRN IVP SEVERE PAIN (7-10) 01/15/24 23:00 01/22/24 22:59 Ondansetron HCl (zoFRAN 4MG INJ) 4 mg Q6H PRN IV NAUSEA/VOMITING 01/15/24 22:00 02/14/24 21:59 Potassium Chloride 100 ml @ 50 mls/hr AD PRN IV POTASSIUM PROTOCOL 01/15/24 22:00 02/14/24 21:59 Sodium Chloride 1,000 ml @ 125 mls/hr Q8H IV 01/15/24 22:00 01/17/24 09:40 DC 01/17/24 04:51 125 MLS/HR DIAGNOSTICS / RADIOLOGY: [ ] ASSESSMENT: Acute pancreatitis POA Resolved Hyperglycemia due to uncontrolled diabetes POA A1c 11.7 Uncontrolled hypertension POA Hyperlipidemia POA Pseudohyponatremia due to hyperglycemia POA Medical noncompliance POA Homelessness POA Suspected acute urinary tract infection POA Nonobstructing left renal stone per CT POA Mild bilateral adrenal gland hyperplasia per CT POA Nicotine dependence noncompliance Social determinants with medical treatment PLAN: Remain in med surgical floor CLD: DM 1800 ADA Heplock fluids abt's discontinue supportive measures: DVT/GI:ppx cont to replace electrolytes as needed per protocol ongoing surveillance insulin sliding scale q.4 hours with hypoglycemia protocol A1c 11.7 [address] Mccray Transit Mix Operator started premeal insulin and long acting. continue: add prn medication for fever,pain,nausea and vomiting provide Counseling cigarette smoking cessation We will request labs patient agreed too. Further orders to follow depending on above results Case discussed with attending physician and came up with above treatment and plan of care. ATTESTATION BY PHYSICIAN I have seen and examined the patient. I reviewed the documentation, medical decision making, and treatment plan as noted by the mid-level provider above. I agree with the findings and plan of care. SAADIA CASTILLO MD, ELIZABETH NP Jan 18, 2024 09:11
[2024-01-18] MEDS: FAMOTIDINE 20MG TAB PO SCH (10:10)
[2024-01-18 11:46] VITALS: BP 149/78; PULSE 64; RESP 16; TEMP 98.7
[2024-01-18 12:25] LABS: BASOPHILS # (AUTO) 0.05 K/uL (0.00-0.20); BASOPHILS % (AUTO) 0.3 % (0.0-5.0); EOSINOPHILS # (AUTO) 0.15 K/uL (0.00-0.70); EOSINOPHILS % (AUTO) 0.9 % (0.0-8.0); HEMATOCRIT 44.3 % (42-54); IMMATURE GRANULOCYTE ABSOLUTE 0.14 K/uL (0-1); LYMPHOCYTES # (AUTO) 1.5 K/uL (1.0-4.8); LYMPHOCYTES % (AUTO) 9.4 % (21.0-51.0); MEAN CORPUSCULAR HEMOGLOBIN 28.4 pg (27.0-33.0); MEAN CORPUSCULAR HGB CONC 33.4 g/dL (32.0-36.0); MONOCYTES # (AUTO) 1.2 K/uL (0.1-1.0); MONOCYTES % (AUTO) 7.7 % (3.0-13.0); NEUTROPHILS # (AUTO) 12.9 K/uL (1.8-7.7); NEUTROPHILS % (AUTO) 80.8 % (40.0-77.0); PLATELET COUNT (AUTO) 291 K/uL (130-400); RED BLOOD CELL COUNT(AUTO) 5.21 MIL/uL (4.50-6.20); RED CELL DISTRIBUTION WIDTH 12.8 % (11.0-15.5)
[2024-01-18 12:33] LABS: CREATININE 0.8 mg/dL (0.5-1.3); MAGNESIUM 1.5 mg/dL (1.80-2.40); POTASSIUM 4.4 mmol/L (3.5-5.1)
[2024-01-18] MEDS: MAGNESIUM OXIDE 400 MG TABLET ONE (15:21)
[2024-01-18] MEDS: MAGNESIUM OXIDE 400 MG TABLET PO ONE (15:28)
[2024-01-18 16:00] VITALS: BP 151/88; PULSE 77; RESP 16; TEMP 98.1
--- NOTE | 2024-01-18 20:30 | NUR ---
CAME TO GIVE PATIENT MEDICATIONS. ASKED HIM ABOUT NOT ALLOWING TO CHECK VITAL SIGN. HE RESPONDED "THAT'S WHY I SIGN THE PAPER". ASKED HIM ABOUT THE BLOOD SUGAR AND INSULIN IF HE WILL ALLOW/ACCEPT THAT. HE SAID YES AND ALSO TOOK THE PEPCID AND LOSARTAN TABS.
[2024-01-19] MEDS: INSULIN humuLIN R 100 UNIT/ML 3ML SQ SCH (07:30)
[2024-01-19 08:00] VITALS: O2SAT 97
[2024-01-19 08:51] VITALS: BP 162/94; PULSE 69; RESP 18; TEMP 97.9
[2024-01-19 11:25] VITALS: BP 152/83; PULSE 72; RESP 18; TEMP 98.1
[2024-01-19] MEDS ORDERED: INSU100I35 SQ (12:07)
[2024-01-19] MEDS ORDERED: LOSA-417 PO (12:07)
[2024-01-19] MEDS ORDERED: LEVO-70 PO (12:09)
--- NOTE | 2024-01-19 12:23 | DS ---
Discharge Summary Hospital Course Summary: This is a 49-year-old male, homeless with past medical history of fibromyalgia, hypertension, hyperlipidemia diabetes who presented to the ER for complaints of right upper quadrant and left lower quadrant abdominal pain associated with nausea and vomiting for 2 days.Patient is not cooperative during my evalu ation.Patient denies fever,chills ,chest pain,palpitation and shortness of breath.Patient states he is not taking his medication and not checking his blood sugar and blood pressure because he has no access .Patient states he smoke 1/2 pack of cigarette a day and denies alcohol and recreational drug use.Patient was recently admitted in this facility on 12/12/2023 for chest pain and hyperglycemia and on 12/16/2023 he decided to leave A. On admission: temperature 98.2, heart rate 84, blood pressure 164/91 saturation 99% on room air. Labs: WBC 13.9, hemoglobin 15.4, hematocrit 43.9 platelet count 303. Sodium 132, glucose 492 to 298 and lipase 227. Urinalysis positive esterase. CT abdomen and pelvis with contrast result revealed 2 mm nonobstructing left renal stone. Findings suggestive of mild bilateral adrenal gland hyperplasia. Chronic bilateral L5 spondylolysis contributing to low-grade 3 mm anterolisthesis of L5 upon S1. A mild thoracolumbar spondylosis. During the course of stay patient was followed by supervisor keymodule assembly patient's A1c elevated 11.7 Patient will need long-acting insulin on discharge 70 30 Novolin before meals 40 at breakfast in 20 units before dinner. Patient's blood pressure was uncontrolled on admission patient will be discharged on [id number] mg p.o. b.i.d.. Patient is homeless but does have a PCP that he does not follow I advised to be compliant with medical treatment and follow-up with his PCP to manage his diabetes and hypertension. During the course patient refused in slin g labs antibiotics. Refused all admission orders vital signs blood sugar checks medication administration. Patient we will be discharged denies chest pain or shortness for breath Procedure(s): REASON: RIGHT LOWER AND LEFT LOWER QUADRANT PAIN TENDERNESS FOR TWO DAYS. NAUSEA A ORDERING PHYSICIAN: BARRY العراقي NP PROCEDURE: ABD PEL W - CT ABDOMEN/PELVIS W/CONTRAST CT ABDOMEN WITH CONTRAST. CT PELVIS WITH CONTRAST INDICATION: Lower abdominal pain with nausea and vomiting TECHNIQUE: Routine transaxial images using 5 mm slice thickness were obtained after the intravenous infusion of 100 mL of Omnipaque 350 without adverse effects. Oral contrast was not administered. Rectal contrast was not administered. Coronal and sagittal reformatted images acquired for interpretation. CT was performed with one or more of the following dose reduction techniques: Automated exposure control, adjustment of the mA and/or kV according to patient size, or use of iterative reconstruction technique. COMPARISON: 09/18/2022 FINDINGS: ABDOMEN: Heart size is normal. Visible lung bases are clear. The liver is normal in size and smooth in contour without lesions or biliary duct dilation. The spleen is normal in size without lesions. The gallbladder is absent. The pancreas appears normal without pancreatic duct dilation. Mild bilateral adrenal gland thickening without nodule/mass. 2 mm nonobstructing stone at the mid to lower portion of the left kidney. Right kidney appears normal. Nominal bilateral perinephric edema. Cortical nephrograms are symmetric and normal in appearance bilaterally. No evidence for intra-abdominal free air or organized fluid collection. No retrocrural, intraabdominal, or retroperitoneal lymphadenopathy identified. Mild calcific plaque is noted along the abdominal aortic and iliac vessel [place] without aneurysmal dilation or dissection. PELVIS: No evidence for free air or organized pelvic fluid collection. No significant pelvic adenopathy detected. Moderate stool burden. Terminal ileum appears normal. The appendix appears normal. The urinary bladder appears unremarkable. Chronic bilateral L5 spondylolysis contributing to low-grade (3 mm) anterolisthesis of L5 upon S1. Mild thoracolumbar spondylosis. IMPRESSION: 1. 2 mm nonobstructing left renal stone. 2. Findings suggesting mild bilateral adrenal gland hyperplasia. 3. Additional minor findings, postsurgical changes, and pertinent negatives as reported. Assessment/Plan: Discharged dx Acute pancreatitis POA Resolved Hyperglycemia due to uncontrolled diabetes POA A1c 11.7 discharged with insulin regiment Uncontrolled hypertension POA lostartan po 25 mg bid Hyperlipidemia POA Pseudohyponatremia due to hyperglycemia POA Medical noncompliance POA Homelessness POA social group worker provided community resources. Suspected acute urinary tract infection POA discharged on oral antibiotics levaquin 500 mg po daily for 5 days Nonobstructing left renal stone per CT POA Mild bilateral adrenal gland hyperplasia per CT POA Nicotine dependence noncompliance Social determinants with medical treatment PLAN: ADMISSION DATE: 01/15/24 DISCHARGE DATE: 01/19/24 DISPOSITION: home CONDITION: stable ACTIVITIES COORDINATOR(S): supervisor keymodule assembly: DR Mccray FOLLOW UP APPOINTMENT(S): PCP: 2-3days, DR Mccray 2-4 wks PROCEDURES: none IMAGING (S) report attached to summary : ct abd/pelvis MICROBIOLOGY: report attached to summary; urine culture ACTIVITY: ab gloria use Walker DME HOME MEDICATIONS: none profile NEW MEDICATIONS Insulin NPH Hum/Reg Insulin Hm (Novolin 70-30 Flexpen) 100 Unit/Ml (70-30) Insuln.pen bid : 40 units before breakfast 20 unit before dinner Levofloxacin 500 Mg Tablet daily 5 days Losartan Potassium (Cozaar) 25 Mg Tablet bid TEACHING: Compliance with medical treatment follow-up with PCP to manage his diabetes and hypertension. Social determinants: Homeless: Pt originally from [place]. Pt has been homeless for 2 years. He and have been 5yrs, she lives in [place] with their 2 sons. Pt states he has stayed his limit for the year at [facility] and [facility] and now is just staying on streets. Pt states he will not go elsewhere because he wants to be able to see his kids. Pt has a walker with seat. PCP is Dr Perez and uses [facility] for rx. DCP is to return to streets at [facility]. Community resources provided. Pt states he has no other family and refused to give information for ER contact Emergency instructions: The patient was instructed to present to the nearest Emergency Department or call 911 should their symptoms return or worsen. Home Medications: Discontinued Scripts Cephalexin Monohydrate (Keflex) 500 Mg Cap, 500 MG PO QID for 7 Days, #28 CAP Prov:BEBA CONDE MD 08/31/23 New Medications: Insulin NPH Hum/Reg Insulin Hm (Novolin 70-30 Flexpen) 100 Unit/Ml (70-30) Insuln.pen 100 UNIT SQ BIDAC for 30 Days, #1 SYRINGE Levofloxacin (Levofloxacin) 500 Mg Tablet 1 TAB PO DAILY for 5 Days, #5 TAB 0 Refills Losartan Potassium (Cozaar) 25 Mg Tablet 25 MG PO BID for 30 Days, #60 TAB Time spent arranging discharge: 31-60 minutes ATTESTATION BY PHYSICIAN I have seen and examined the patient. I reviewed the documentation, medical decision making, and treatment plan as noted by the resident provider above. I agree with the findings and plan of care. Britton Edouard MD, ELIZABETH NP Jan 19, 2024 12:23
--- NOTE | 2024-01-19 14:53 | NUR ---
PATIENT DISCHARGED ID BAND AND IV REMOVED. DISCHARGE INSTRUCTIONS EXPLAINED AND GIVEN TO PATIENT.PATIENT VERBALIZED UNDERSTANDING. BELONGINGS PACKED AND TAKEN BY PATIENT. WHEELED DOWN TO FRONT OF LOBBY
== END 2024-01-19 14:53 | disposition home or self-care (01) | DRG 439 ==
LOC: EDH 18:29 → EDHIP 18:30 → 3CH 22:29
PROVIDERS: ADMIT Internal Medicine; ATTEND Internal Medicine
DX: K85.90 Acute pancreatitis without necrosis or infection, unspecified (principal); N39.0 Urinary tract infection, site not specified; Z59.00 Homelessness unspecified; E11.65 Type 2 diabetes mellitus with hyperglycemia; I10 Essential (primary) hypertension; N20.0 Calculus of kidney; R59.9 Enlarged lymph nodes, unspecified; E78.00 Pure hypercholesterolemia, unspecified; Z53.29 Procedure and treatment not carried out because of patient's decision for other reasons; E86.0 Dehydration; M43.17 Spondylolisthesis, lumbosacral region; M47.815 Spondylosis without myelopathy or radiculopathy, thoracolumbar region; M79.7 Fibromyalgia; F17.210 Nicotine dependence, cigarettes, uncomplicated; Z79.4 Long term (current) use of insulin; Z91.148 Patient's other noncompliance with medication regimen for other reason; Z82.49 Family history of ischemic heart disease and other diseases of the circulatory system
CPT/HCPCS: 36415; 74177; 80048; 80053; 80061; 81001; 82150; 82948; 83036; 83605; 83690; 83735; 84443; 85025; 87086; G0378; J0360; J0696; J1815; J1885; J2270; J2405; J3490; J7030; Q9967

== ENCOUNTER → 2024-02-23 | Emergency (ER) | payer SELFPAY ==
[~2024-02-23] VITALS: Ht 177.8 cm; Wt 113.4 kg
[~2024-02-23] MED LIST changes: -CEPH500B PO; +INSU100V12 SQ; +LOSA-417 PO
[2024-02-23 16:32] VITALS: BP 189/100; PULSE 99; RESP 17
--- NOTE | 2024-02-23 17:16 | ERN ---
ED Note History of Present Illness Stated Complaint: CHRONIC ABD PAIN Chief Complaint: Abdominal Pain Time Seen by MD: 17:00 Dictation: Patient is a 49-year-old male well known to [facility] coming in with complaints of abdominal pain and elevated blood sugars for two months. No nausea vomiting no diarrhea no fever no chills. States he has not been to see his doctor because he has a had the time. Allergies: Coded Allergies: No Known Drug Allergies (Unverified Allergy, Unknown, 04/03/22) Home Meds Active Scripts Losartan Potassium (Cozaar) 25 Mg Tablet, 25 MG PO BID for 30 Days, #60 TAB Prov:DAMION BIRCH DESIGN DIRECTOR 01/19/24 Reported Medications Insulin Detemir (Levemir) 100 Unit/Ml Vial, 24 UNIT SQ BID, VIAL 02/12/24 Past Medical History Past Medical History: Diabetes-Type II, Hypertension Additional Past Medical Hx: PANCREATITIS, CHRONIC ABD PAIN, CHRONIC BACK PAIN Surgical History: Other Surgical History Other: BACK SURGERY Social History: Smokers, Lives with family RN Note Reviewed/Agreed w/PFSH: Yes Review of System Dictation CONSTITUTIONAL: NEGATIVE EXCEPT FOR HPI WEAKNESS HEAD/FACE: NEGATIVE EXCEPT FOR HPI EENT: NEGATIVE EXCEPT FOR HPI RESPIRATORY: NEGATIVE EXCEPT FOR HPI GASTROINTESTINAL/ABDOMINAL: NEGATIVE EXCEPT FOR HPI LEFT LOWER QUADRANT PAIN GENITOURINARY: NEGATIVE EXCEPT FOR HPI MUSCULOSKELETAL: NEGATIVE EXCEPT FOR HPI INTEGUMENTARY: NEGATIVE EXCEPT FOR HPI NEUROLOGICAL/PSYCH: NEGATIVE EXCEPT FOR HPI HEMATOLOGIC/LYMPHATIC: NEGATIVE EXCEPT FOR HPI ALL SYSTEMS NEGATIVE, EXCEPT NOTED ABOVE. 13 POINT REVIEW OF SYSTEMS ASSESSED AND ALL NEGATIVE EXCEPT FOR ABOVE. Initial Vital Sign VS Vital Signs Date Time Temp Pulse Resp B/P (MAP) Pulse Ox O2 Delivery O2 Flow Rate FiO2 02/23/24 16:32 99 17 189/100 97 Room Air 0 Physical Exam Dictation VITAL SIGNS REVIEWED GENERAL APPEARANCE: ALERT, ORIENTED X 3, NO ACUTE DISTRESS, WELL DEVELOPED, NOURISHED. OBESE HEAD AND FACE: NON-TRAUMATIC. EYES: PERRL, PINK CONJUNCTIVAS, EYELID NO TRAUMA, ANTERIOR CHAMBER WITH ARCUS SENILIS. EARS: PINNAS INTACT AND NO SIGNS OF TRAUMA OR ERYTHEMA EAR CANALS CLEAR AND NO DISCHARGE TM NO ERYTHEMA NOSE: NO DISCHARGE, NO BLEEDING. OROPHARYNX: MOUTH NORMAL, TONGUE PINK, PHARYNX CLEAR,NO ERYTHEMA, TONSILS NO EXUDATES, NO ABSCESSES NOTED, MUCOUS MEMBRANE MOIST NECK: SUPPLE, NON-TENDER, NO THYROMEGALY, NO MASSES, NO JVD, NO BRUITS BREAST:DEFERRED CHEST:NO TENDERNESS, NO CREPITUS, NO PARADOXICAL MOVEMENT, NO RETRACTIONS LUNGS:CLEAR, WELL-VENTILATED, SYMMETRIC, NO RALES, NO WHEEZING, NO RHONCHI, NO STRIDOR, GOOD BREATH SOUNDS BILATERALLY HEART: REGULAR RATE, REGULAR RHYTHM, NO MURMUR, NO GALLOPS VASCULAR: NO PERIPHERAL EDEMA, ABDOMEN: SOFT, POSITIVE BOWEL SOUNDS, NONDISTENDED, NO GUARDING, NO FOCAL TENDERNESS RECTAL: DEFERRED GENITAL: DEFERRED NEUROLOGICAL: NORMAL SPEECH, MOTOR FUNCTION INTACT, SENSORY FUNCTION INTACT MUSCULOSKELETAL: NECK NONTENDER, FULL RANGE OF MOTION, BACK NONTENDER, FULL RANGE OF MOTION, EXTREMITIES: NONTENDER, FULL RANGE OF MOTION SKIN: COLOR PINK, DRY, NO TURGOR, NO RASH, NO LACERATIONS, NO ABRASIONS, NO CONTUSIONS. LYMPHATIC: DEFERRED Results (Laboratory/Radiology) Labs Reviewed?: Yes ED Course ED Course Orders Procedure Category Date Status Time Vital Signs Per CPOE 02/23/24 Transmitted Routine 16:50 Saline Lock Iv CPOE 02/23/24 Transmitted 16:50 Cbc With Differential LAB 02/23/24 Logged 16:50 Lipase LAB 02/23/24 Logged 16:50 Urinalysis Profile LAB 02/23/24 Logged 16:50 12 Lead Ekg Tracing- EKG 02/23/24 Logged Technical 16:50 Basic Metabolic Panel LAB 02/23/24 Logged 16:50 Ketone Blood LAB 02/23/24 Logged Quantitative 17:14 0.9%Nacl 1000ml (Ns PHA 02/23/24 Complete 1000ml) 17:30 Ketorolac PHA 02/23/24 Complete Tromethamine 30mg/Ml 17:30 Current Medications Medications (Trade) Dose Ordered Sig/Christofer Route PRN Reason Start Time Stop Time Status Last Admin Dose Admin Ketorolac Tromethamine (toRADol) 30 mg ONCE ONCE IVP 02/23/24 17:30 02/23/24 17:31 DC Sodium Chloride 1,000 ml @ 0 mls/hr ONCE ONCE IV 02/23/24 17:30 02/23/24 17:31 DC Vital Signs Date Time Temp Pulse Resp B/P (MAP) Pulse Ox O2 Delivery O2 Flow Rate FiO2 02/23/24 16:32 99 17 189/100 97 Room Air 0 Medical Decision Making MDM MEDICAL DISCHARGE MAKING BASED ON PATIENT BECAME BELLIGERENT WITH STAFF BECAUSE HE HAD NOT BEEN ATTEMPTED TO WHEN HE 1ST ARRIVED VIA EMS. HE WAS ADVISED ON THE CONGESTION IN THE EMERGENCY ROOM HOWEVER HE WAS IMPORTANT TO US AND WE WOULD GET TO HIM SOON POSSIBLE HE BECAME BELLIGERENT WITH THE STAFF AND STATES THAT HE DID NOT WANT TO STAY IN THE HOSPITAL HE WALKED OUT AGAINST MEDICAL ADVICE USING HIS ON POWER. DX & DISP Disposition: AMA Departure Impression: Primary Impression: Chronic abdominal pain Condition: Stable Referrals: BINTA RUIZ (PCP) Time of Disposition: 21:36 I have reviewed the case, and I agree with, Diagnosis and Plan BARRY العراقي NP Feb 23, 2024 17:16
[2024-02-23] MEDS: ketOROlac 30MG VIAL (30MG/ML) IVP ONE (17:30)
--- NOTE | 2024-02-23 17:55 | NUR ---
PT WAS ON EMS STRETCHER PLACED IN ER ROOM 3
[2024-02-23] MEDS: 0.9%NACL 1000ML 1,000 ML IV ONE (18:00)
--- NOTE | 2024-02-23 18:00 | NUR ---
PT NOT COOPERATING FOR EKG. AOX4 HE WILL NOT TURN OVER PT LYING PRONE
--- NOTE | 2024-02-23 18:10 | NUR ---
lab attempted to collect labs pt refusing.
--- NOTE | 2024-02-23 18:15 | NUR ---
PT NOT COOPERATING REFUSING IV AND LABS ER PROVIDER IS AWARE
--- NOTE | 2024-02-23 19:30 | NUR ---
attempted to access patient, iv, labs, vitals not cooperating
--- NOTE | 2024-02-23 20:30 | NUR ---
pt not cooperating, pulling away, pushing away when attempting treatment
--- NOTE | 2024-02-23 21:21 | NUR ---
PT CONTINUES TO REFUSE TREATMENT MADE AWARE OF THE POSSIBLE RISKS, PT IS AOX4 NO SIGNS OF DISTRES. PT REFUSED SIGNING REFUSAL OF TREATMENT FORM, BARRY العراقي PAINT STOCK CLERK, SUSAN CUSTOMER QUALITY ENGINEER NURSE PRIMARY NURSE AND JUAN MANUEL WEAVER WITNESSED AT BEDSIDE.
--- NOTE | 2024-02-23 21:29 | NUR ---
Willy RAILROAD CONDUCTOR spoke to patient regarding his refusal to allow staff to get labs, do an EKG or do any vital signs. auto rental supervisor made aware of patients refusal of care. Patient got up out of bed and walked out of ER.
== END ==
LOC: EDH 16:29
DX: G89.29 Other chronic pain (principal); R10.9 Unspecified abdominal pain; E11.9 Type 2 diabetes mellitus without complications; I10 Essential (primary) hypertension; F17.200 Nicotine dependence, unspecified, uncomplicated; Z79.4 Long term (current) use of insulin; Z79.899 Other long term (current) drug therapy
CPT/HCPCS: 99283

== ENCOUNTER 2024-07-08 14:50 | Emergency (ER) | payer SELFPAY ==
[~2024-07-08] VITALS: Ht 177.8 cm; Wt 108.9 kg
[~2024-07-08 14:50] MED LIST changes: +CLIN-141 PO
--- NOTE | 2024-07-08 15:22 | NUR ---
PT NOT IN ER WAITING AREA CURRENTLY
[2024-07-08] MEDS ORDERED: SULF1TAB42 PO (16:23)
--- NOTE | 2024-07-08 16:24 | ERN ---
General Chief Complaint: Wound Check Stated Complaint: BLE WOUNDS Time Seen by MD: 14:59 Time Seen by Midlevel: 14:59 Source: patient History of Present Illness Initial Comments Patient is a morbidly obese 49-year-old male presenting to the emergency department for evaluation of bilateral lower extremity pain. The patient is homeless and states he has been walking for the last several days. He has chronic wounds to his bilateral lower extremities. He is refusing any sort of IV therapy and would like to be treated with oral medication. Patient is refusing blood work. He states he wants his pain control and antibiotics if he needs them. Allergies: Coded Allergies: No Known Drug Allergies (Unverified Allergy, Unknown, 04/03/22) Home Meds Active Scripts Clindamycin HCl (Clindamycin HCl) 300 Mg Capsule, 1 CAP PO QID for 10 Days, #40 CAP 0 Refills Prov:SUZANNE CONDE CIRCULATION TENDER 05/04/24 Losartan Potassium (Cozaar) 25 Mg Tablet, 25 MG PO BID for 30 Days, #60 TAB Prov:DAMION BIRCH DIESEL TRUCK TECHNICIAN 01/19/24 Reported Medications Insulin Detemir (Levemir) 100 Unit/Ml Vial, 24 UNIT SQ BID, VIAL 02/12/24 Past Medical History Past Medical History: Diabetes-Type II, Hypertension Medical History Other: PANCREATITIS, CHRONIC ABD PAIN, CHRONIC BACK PAIN Past Surgical History: Other Surgical History Other: BACK SURGERY Social History Social History: Smokers, Lives with family ROS Dictation CONSTITUTIONAL: Negative except for HPI HEAD/FACE: Negative except for HPI EENT: Negative except for HPI RESPIRATORY: Negative except for HPI GASTROINTESTINAL/ABDOMINAL: Negative except for HPI GENITOURINARY: Negative except for HPI MUSCULOSKELETAL: Negative except for HPI INTEGUMENTARY: Negative except for HPI NEUROLOGICAL/PSYCH: Negative except for HPI HEMATOLOGIC/LYMPHATIC: Negative except for HPI All Systems Negative, Except as noted above. 13 point review of systems assessed and all negative except for above. Physical Exam Physical Exam Dictation PHYSICAL EXAM: GENERAL: alert,, awake oriented x 3 HEENT: EOMI, Sclera non icteric, moist mucosa NECK: Supple, no JVD, trachea midline LUNGS: Clear breath sounds bilaterally. No wheezes HEART: Regular rate and rhythm. Normal S1 and S2, without murmurs ABD: Abdomen soft, nontender. Bowel sounds present EXT: There are multiple open wounds to bilateral lower extremities, no surrounding erythema is noted NEURO: Alert and oriented to person, follows commands MDM MDM: Differential diagnosis: Cellulitis, chronic pain, abscess There are no social concerns with this patient. Prescription drug management Prescriptions will include: Bactrim Medical management and examination interpretation discussions were had by me with other qualified healthcare professionals as indicated for the patient's care. ED Course Orders Procedure Category Date Status Time Hydrocodone/Apap PHA 07/08/24 Complete 5/325 ([place] 5/325mg) 16:00 Sulfamethox-Tmp Ds PHA 07/08/24 In Process 800/160 Tab (Bactrim 16:30 Current Medications Medications (Trade) Dose Ordered Sig/Christofer Route PRN Reason Start Time Stop Time Status Last Admin Dose Admin Acetaminophen/ Hydrocodone Bitart (NORco 5/325MG) 1 tab ONCE ONCE PO 07/08/24 16:00 07/08/24 16:05 DC Trimethoprim/ Sulfamethoxazole (BactRIM DS) 1 tab ONCE ONCE PO 07/08/24 16:30 07/08/24 16:31 Vital Signs Date Time Temp Pulse Resp B/P (MAP) Pulse Ox O2 Delivery O2 Flow Rate FiO2 07/08/24 15:17 97.9 94 18 191/102 99 Room Air* 0 21 07/08/24 14:52 97.9 94 18 191/102 99 0 DX & DISP Disposition: Discharge Departure Impression: Primary Impression: Cellulitis of both lower extremities Condition: Stable Scripts Sulfamethoxazole/Trimethoprim (Bactrim Ds Tablet) 800 Mg-160 Mg Tablet 1 TAB PO BID for 7 Days, #14 TAB 0 Refills Prov: MILTON LYNN 07/08/24 Referrals: BINTA URIZ (PCP) I have reviewed the case, and I agree with, Diagnosis and Plan I performed the substantive portion of the visit. I have reviewed and personally made and approve the management plan that is documented in the note by myself or the NEEL. I acknowledge for responsibility for the patient's management plan. MILTON LYNN July 08, 2024 16:24
[2024-07-08] MEDS: HYDROcodone/APAP 5/325 1 TAB TABLET PO ONE (16:26)
[2024-07-08] MEDS: sulfaMETHOX-TMP DS 800/160 TAB PO ONE (16:26)
[2024-07-08 16:29] VITALS: BP 174/82; PULSE 82; RESP 18; TEMP 97.9; O2SAT 99
== END 2024-07-08 16:30 | disposition home or self-care (01) ==
LOC: EDH 14:50
DX: L03.115 Cellulitis of right lower limb (principal); L03.116 Cellulitis of left lower limb; E11.9 Type 2 diabetes mellitus without complications; E66.01 Morbid (severe) obesity due to excess calories; I10 Essential (primary) hypertension; F17.200 Nicotine dependence, unspecified, uncomplicated; Z79.4 Long term (current) use of insulin; Z79.899 Other long term (current) drug therapy
CPT/HCPCS: 99283

== ENCOUNTER 2025-02-03 14:04 | Inpatient (IN) | payer SELFPAY ==
[~2025-02-03] VITALS: Ht 177.8 cm; Wt 104.3 kg
[~2025-02-03 14:04] MED LIST changes: +SULF1TAB42 PO
[2025-02-03] MEDS: ASPIRIN 325MG TAB PO ONE (14:40)
[2025-02-03 14:57] LABS: CREATININE 1.2 mg/dL (0.5-1.3); GLOMERULAR FILTR. RATE CALC 73.0 mL/min (>90); SODIUM SERUM 132.0 mmol/L (136-145); UREA NITROGEN, BLOOD 12.0 mg/dL (7-18)
[2025-02-03 15:01] LABS: GLUCOSE,RANDOM 446.0 mg/dL (70-105)
[2025-02-03 15:35] LABS: CREATINE KINASE, TOTAL 114.0 U/L (21-232)
--- NOTE | 2025-02-03 16:10 | HMCIMG ---
EXAM: CR Chest, 1 View. CLINICAL HISTORY: CP COMPARISON: 01/27 17:12 EST CR - CHEST 1VW FINDINGS: LUNGS: New mild diffuse bibasilar opacities which may represent bibasilar acute infectious process. PLEURAL SPACES: No evidence of pleural effusion or pneumothorax. MEDIASTINUM: The cardiomediastinal silhouette is within normal limits. BONES: No aggressive appearing osseous lesion seen. IMPRESSION: Suggestion for interval development of bibasilar opacities which may represent acute infectious process. Correlate clinically. /Garrett
[2025-02-03] MEDS ORDERED: MAGNESIUM 2GM PREMIX 50ML 50 ML IV SCH (16:30)
[2025-02-03 16:40] LABS: APPEARANCE,URINE CLEAR (CLEAR); GLUCOSE, URINE (UA) >=1000 mg/dL (NEGATIVE); LEUKOCYTE ESTERASE ,URINE NEGATIVE Leu/uL (NEGATIVE); NITRATE,URINE NEGATIVE (NEGATIVE); OCCULT BLOOD,URINE +- (TRACE) (NEGATIVE)
[2025-02-03 16:41] LABS: ADD UA MICROSCOPIC YES
[2025-02-03 16:43] LABS: AMPHET/METH SCREEN,URINE NEGATIVE (NEGATIVE); BARBITURATE SCREEN, URINE NEGATIVE (NEGATIVE); CANNABINOID SCREEN,URINE NEGATIVE (NEGATIVE); COCAINE SCREEN,URINE NEGATIVE (NEGATIVE)
[2025-02-03 16:44] LABS: SQUAMOUS EPITHELIAL CELL,UR RARE /HPF (0-2)
[2025-02-03 17:03] LABS: IMMATURE GRANULOCYTE ABSOLUTE 0.04 K/uL (0-1); NUCLEATED RED BLOOD CELLS 0.0 % (0.0-0.19); PLATELET COUNT (AUTO) 256 K/uL (130-400); RED BLOOD CELL COUNT(AUTO) 5.26 MIL/uL (4.50-6.20); RED CELL DISTRIBUTION WIDTH 12.8 % (11.0-15.5); WHITE BLOOD COUNT (AUTO) 8.6 K/uL (4.8-10.8)
[2025-02-03] MEDS: 0.9% NACL 500ML IV.SOLN 500 ML IV ONE (18:41)
[2025-02-03] MEDS: DOXYCYCLINE 100MG+NS 250ML 250 ML IV ONE (18:46)
[2025-02-03 19:20] VITALS: PULSE 83; RESP 20
--- NOTE | 2025-02-03 19:26 | HP ---
[facility] HISTORY [facility] PHYSICAL Date of Service: Feb 03, 2025 Time of Service: 18:58 PCP: Self Referral HISTORY OF PRESENT ILLNESS: This is a 50-year-old male,homeless with past medical history of diabetes,hypertension,hyperlipidemia,COPD and fibromyalgia who was brought by EMS to the ED for complaints of right sided chest pain and shortness of breath . Patient is uncooperative ,he answers questions selectively.Patient states he is here because of chest pain and shortness of breath and he also states he is diabetic but he is not taking any medication and he is homeless.Patient states he has been having on and off chest pain and shortness of breath most of the time as usual he said. Patient decline to answer further questions like what triggers the pain and if pain radiates to any parts .Patient has edema to bilateral lower extremity with scabbed wound to left lower extremity.Patient was recently admitted last January for chest pain,elevated troponin ,COPD and uncontrolled DM however patient left AMA on 01/30/2025.Patient was sleeping during my evaluation and able to wake up and answer questions but selectively and the rest he does not respond or cooperate . Seen and examined patient int he ED coherent and moving all extremities,appears comfortable in no apparent distress.V/S T 97.7,HR 77,BP 157/71/Sat 97% RA.Na 132 Random Glucose 446 to 345 ,K 4.5 ,Mag 1.6 TCK 114 Trop 52 BNP 223.Urine toxicology negative.Urinalysis for urine protein 200, urine glucose above 1000, occult blood positive, RBC 2-5, urine WBC 11-25. Chest x-ray result revealed suggestion for interval development of bibasilar opacities which may represent acute infectious process. While in the ER patient received aspirin 325 mg p.o., hydralazine 10 mg IV, NS bolus of 500, 7 units of insulin IV and albuterol and Doxycycline . We will admit patient for further medical management. Addendum : The undersigned was called and notified that patient left AMA REVIEW OF SYSTEMS CONSTITUTIONAL: Denies fevers, chills, or night sweats. No unintentional weight loss reported. NEUROLOGICAL: Denies headache, amaurosis fugax, motor weakness, sensory deficit, vertigo/spinning sensation, gait abnormalities, or tremors. ENT: No hearing loss, otalgia, otorrhea, rhinitis, rhinorrhea, hoarseness, or sore throat. CARDIOVASCULAR: complained right side chest pain Denies dyspnea on exertion, orthopnea, paroxysmal nocturnal dyspnea, palpitations, life-threatening arrhythmias, claudication. PULMONARY: dry cough and shortness of breath Denies phlegm/sputum, hemoptysis, pleuritic chest pain. SLEEP: Denies morning headaches, daytime somnolence or napping. Denies difficulty falling asleep, staying asleep, waking from sleep. Denies knowledge of snoring. GASTROINTESTINAL: Denies any type of dysphagia to either liquids or solids. Denies nausea, vomiting, pyrosis, early satiety, abdominal pain, diarrhea, constipation, or changes in stool consistency or caliber. Denies coffee-ground emesis, hematemesis, hematochezia, or melanotic stools. GENITOURINARY: Denies frequency, urgency, nocturia, hematuria or incontinence (Storage/Irritative symptoms.) Low urinary stream, straining to void, urinary intermittency or hesitancy, splitting of the voiding stream, terminal dribbling. ENDOCRINOLOGIC: Denies polyuria, polydipsia, polyphagia or heat/cold intolerances. HEMATOLOGIC: Denies thrombophilia/previous clots, or coagulopathy/bleeding d isorders. ONCOLOGIC: Denies personal history of malignancy. DERMATOLOGIC: Denies rashes or pruritus. PSYCHIATRIC: Denies any suicidal or homicidal ideation. Denies hallucinations. PAST MEDICAL HISTORY: [ diabetes,hypertension,hyperlipidemia,COPD and fibromyalgia ] PAST SURGICAL HISTORY: [ Patient complains ] PAST SOCIAL HISTORY: [ Patient is a homeless. Patient admits to smoking 1/2 pack cigarettes per day denies alcohol and recreational drug use ] FAMILY HISTORY: [ Cardiovascular disease] Coded Allergies: No Known Drug Allergies (Unverified Allergy, Unknown, 04/03/22) PHYSICAL EXAM GENERAL APPEARANCE: The patient is awake, alert, and oriented, in no acute cardiopulmonary distress. NEUROLOGICAL: Cranial nerves II-XII grossly intact. Motor is 5/5 in bilateral upper and lower extremities proximal to distal. No sensory deficits. HEENT: Face is symmetric. Pupils are equal and reactive. Extraocular movements are intact. NECK: Supple. No JVD. No thyromegaly. No submental, submandibular, pre-/postau ricular, occipital or supraclavicular lymphadenopathy. CHEST: Normal chest expansion. No Telemetry. LUNGS: Absence of any rales, rhonchi or any wheezing. CARDIOVASCULAR: Regular. S1 and S2 normal. No appreciable rubs, murmurs or gallops. ABDOMEN: Soft, nontender, and nondistended. There is no rebound, voluntary guarding, or rigidity. : Deferred. No Rust. EXTREMITIES: EDema to bilaterasl lower extremities 2+ SKIN: scabbed wound to left lower leg Vital Sign (Last 24 Hours) 02/03/25 18:55 Temp 97.7 Pulse 77 Resp 18 B/P (MAP) 157/71 Pulse Ox 97 O2 Delivery Room Air* O2 Flow Rate 0 FiO2 21 LABS: Laboratory: Test 02/03/25 17:41 02/03/25 16:57 02/03/25 16:21 02/03/25 14:29 Range/Units Whole Blood Glucose 345 H 70-110 MG/DL Bedside Glucose Comment Notified Nurse White Blood Count 8.6 4.8-10.8 K/uL Red Blood Count 5.26 4.50-6.20 MIL/uL Hemoglobin 14.9 14.0-18.0 g/dL Hematocrit 43.6 42-54 % Mean Corpuscular Volume 82.9 79-99 fL Mean Corpuscular Hemoglobin 28.3 27.0-33.0 pg Mean Corpuscular Hemoglobin Concent 34.2 32.0-36.0 g/dL Red Cell Distribution Width 12.8 11.0-15.5 % Platelet Count 256 130-400 K/uL Mean Platelet Volume 8.8 7.5-10.5 fL Immature Granulocyte % (Auto) 0.5 0-1 % Neutrophils (%) (Auto) 64.9 40.0-77.0 % Lymphocytes (%) (Auto) 25.3 21.0-51.0 % Monocytes (%) (Auto) 7.4 3.0-13.0 % Eosinophils (%) (Auto) 1.3 0.0-8.0 % Basophils (%) (Auto) 0.6 0.0-5.0 % Neutrophils # (Auto) 5.6 1.8-7.7 K/uL Lymphocytes # (Auto) 2.2 1.0-4.8 K/uL Monocytes # (Auto) 0.6 0.1-1.0 K/uL Eosinophils # (Auto) 0.11 0.00-0.70 K/uL Basophils # (Auto) 0.05 0.00-0.20 K/uL Absolute Immature Granulocyte (auto 0.04 0-1 K/uL Nucleated Red Blood Cells 0.0 0.0-0.19 % B-Type Natriuretic Peptide 223 H 0-100 pg/mL Urine Color LIGHT-YELLOW YELLOW Urine Appearance CLEAR CLEAR Urine pH 6.5 5.0-8.0 Urine Specific [place] 1.026 1.001-1.031 Urine Protein 200 H NEGATIVE mg/dL Urine Glucose (UA) >=1000 H NEGATIVE mg/dL Urine Ketones NEGATIVE NEGATIVE mg/dL Urine Occult Blood +- (TRACE) H NEGATIVE Urine Nitrate NEGATIVE NEGATIVE Urine Bilirubin NEGATIVE NEGATIVE mg/dL Urine Urobilinogen 0.2 0.2-1.0 mg/dL Urine Leukocyte Esterase NEGATIVE NEGATIVE Farheen/uL Urine RBC 2-5 H 0-1 /HPF Urine WBC 11-25 H 0-1 /HPF Urine Squamous Epithelial Cells RARE 0-2 /HPF Urine Bacteria None None Seen /HPF Urine Opiates Screen NEGATIVE NEGATIVE Urine Barbiturates Screen NEGATIVE NEGATIVE Urine Phencyclidine Screen NEGATIVE NEGATIVE Urine Amphetamines Screen NEGATIVE NEGATIVE Urine Benzodiazepines Screen NEGATIVE NEGATIVE Urine Cocaine Screen NEGATIVE NEGATIVE Urine Marijuana (THC) Screen NEGATIVE NEGATIVE Sodium Level 132 L 136-145 mmol/L Potassium Level 4.5 3.5-5.1 mmol/L Chloride Level 102 101-111 mmol/L Carbon Dioxide Level 27 21-32 mmol/L Blood Urea Nitrogen 12 7-18 mg/dL Creatinine 1.2 0.5-1.3 mg/dL Glomerular Filtration Rate Calc 73 >90 mL/min Random Glucose 446 *H 70-105 mg/dL Total Calcium 8.7 8.5-10.1 mg/dL Magnesium Level 1.60 L 1.80-2.40 mg/dL Total Creatine Kinase 114 # 21-232 U/L Troponin I High Sensitivity 52 4-75 ng/L Current Medications Medications (Trade) Dose Ordered Sig/Christofer Route PRN Reason Start Time Stop Time Status Last Admin Dose Admin Magnesium Sulfate 50 ml @ 0 mls/hr PROTOCOL IV 02/03/25 16:30 03/05/25 16:29 DIAGNOSTICS / RADIOLOGY: [ ] ASSESSMENT: Diabetes type 2 with hyperglycemia POA Pseudohyponatremia due to hyperglycemia POA Hypomagnesemia POA Elevated BNP POA Chest pain unspecified POA COPD exacerbation POA Bilateral lower extremity edema Uncontrolled hypertension POA Nicotine dependence POA Non complaint with medication and medical regimen POA Homelessness POA Scabbed wound to left lower leg POA Suspected urinary tract infection POA PLAN: We will admit patient in medical telemetry We will start on heart healthy diet We will start on Aspirin 81 mg po daily We will start on Famotidine 20 mg POdaily for GI prophylaxis We will replace electrolytes as needed per protocol We will start on insulin sliding scale AC & HS with hypoglycemia protocol We will add prn medication for fever,pain,cough , nausea and vomiting We will reconcile home meds once medlist available We will request labs in am Further orders to follow depending on above results Case discussed with attending physician and came up with above treatment and plan of care. ADVANCED CARE PLANNING 1. Which of the following were discussed? Hospice Care - No Therapeutic options - Yes Advance Directives - No Other discussions - 2. Discussed with who? Patient 3. Voluntary nature of this service was explained to the patient? Yes 4. Amount of time spent - __23 5. Reviewed by Physician? (if this service was performed by NPP) Yes Patient seen and examined by me. Agree with note by ACETYLENE TORCH OPERATOR SEE ADDITIONAL ORDERS PER CHART DISCUSSED WITH NURSING STAFF [facility]ESS[facility] SUTTON [facility]AMP[facility] DIRECTOR Feb 03, 2025 19:26
[2025-02-03] MEDS ORDERED: guaiFENesin-DM 200/20MG 10ML PO PRN (19:30)
[2025-02-03] MEDS ORDERED: DEXTROSE 50%-WATER 50 ML DISP.SYRIN IV PRN (19:30)
[2025-02-03] MEDS ORDERED: GLUCAGON 1MG KIT 1 MG ML IM PRN (19:30)
[2025-02-03] MEDS ORDERED: PoTASSium chloRIDE 20MEQ ER 20 MEQ ERTAB PO PRN (19:30)
[2025-02-03] MEDS ORDERED: PoTASSium chl 10% ELIXIR 20MEQ 20 MEQ/15 ML UDCUP PO PRN (19:30)
[2025-02-03] MEDS ORDERED: MAGNESIUM 2GM PREMIX 50ML 50 ML IV PRN (19:30)
[2025-02-03 19:31] LABS: COVID19 (SARS ANTIGEN RAPID) PRESUMPTIVE NEGATIVE (NEGATIVE); INFLUENZA TYPE A Negative For Type A (NEGATIVE); INFLUENZA TYPE B Negative For Type B (NEGATIVE)
--- NOTE | 2025-02-03 20:01 | ERN ---
ED Note History of Present Illness Stated Complaint: CHEST PAIN UNSPECIFIED, HYPERGLYCEMIA, ELAVATED B Chief Complaint: Chest Pain Time Seen by MD: 14:07 Time Seen by Midlevel: 14:07 Dictation: The patient is a 50-year-old male with a history of COPD, diabetes, hyperlipidemia, hypertension, CHF who presents to the emergency department with complaints of shortness of breath, chest pain onset two weeks ago. Patient was just admitted here last week for chest pain and uncontrolled diabetes but he left AMA. Patient reports cough and congestion. Patient poor historian did not answer all the questions asked. Allergies: Coded Allergies: No Known Drug Allergies (Unverified Allergy, Unknown, 04/03/22) Home Meds Active Scripts Sulfamethoxazole/Trimethoprim (Bactrim Ds Tablet) 800 Mg-160 Mg Tablet, 1 TAB PO BID for 7 Days, #14 TAB 0 Refills Prov:MILTON LYNN PAC 07/08/24 Clindamycin HCl (Clindamycin HCl) 300 Mg Capsule, 1 CAP PO QID for 10 Days, #40 CAP 0 Refills Prov:SUZANNE CONDE [employer] TE[employer]ER 05/04/24 Losartan Potassium (Cozaar) 25 Mg Tablet, 25 MG PO BID for 30 Days, #60 TAB Prov:DAMION BIRCH AGACNP 01/19/24 Reported Medications Insulin Detemir (Levemir) 100 Unit/Ml Vial, 24 UNIT SQ BID, VIAL 02/12/24 Past Medical History Past Medical History: COPD, Depression, Diabetes-Type II, High Cholesterol, Hypertension Additional Past Medical Hx: FIBROMYALGIA Surgical History: None Surgical History Other: BACK SX WITH WOUND BACK Social History: Smokers, Lives with family RN Note Reviewed/Agreed w/PFSH: Yes Review of System Dictation Constitutional: Negative for fever,chills, and weight loss Eyes: Negative for injury, pain,redness, and discharge ENT: Negative for injury,pain or swelling Cardiovascular: Negative for , palpitations, and edema positive for chest pain Respiratory: Negative for wheezing, positive for shortness of breath, cough Abdomen/GI: Negative for abdominal pain, nausea, vomiting, diarrhea, and constipation Back: Negative for injury and pain : Negative for injury, bleeding and discharge MS/Extremity: Negative for injury and deformity Skin: Negative for rash, and discoloration Neuro: Negative for headache, weakness, numbness, tingling, and seizure Psych: Negative for suicide ideation, homicidal ideation, and hallucinations Initial Vital Sign VS Vital Signs Date Time Temp Pulse Resp B/P (MAP) Pulse Ox O2 Delivery O2 Flow Rate FiO2 02/03/25 14:05 98.2 84 18 187/98 98 Room Air 0 02/03/25 14:10 21 Physical Exam Dictation Vital Signs reviewed General Appearance: Alert, oriented x 3, no acute distress, well developed, nourished. Head and Face: non-traumatic. Eyes: PERRL, pink conjunctivas, eyelid no trauma, anterior chamber with arcus senilis. Ears: Pinnas intact and no signs of trauma or erythema ear canals clear and no discharge TM no erythema Nose: No discharge, no bleeding. Oropharynx: Mouth normal, tongue pink. pharynx clear,no erythema, tonsils no exudates, no abscesses noted, mucous membrane moist Neck: Supple, non-tender, no thyromegaly, no masses, no JVD, no bruits Breast:Deferred Chest:No tenderness, no crepitus, no paradoxical movement, no retractions Lungs:Clear, well-ventilated, symmetric, no rales, no wheezing, no rhonchi, no stridor, diminished sounds bilaterally Heart: Regular rate, regular rhythm, no murmur, no gallops Vascular: 2+ bilateral peripheral edema Abdomen: Soft, positive bowel sounds, nondistended, no guarding, nontender, no rebound, no masses no hepatomegaly, no splenomegaly, no Dugan's sign, no hernias. Rectal: Deferred Genital: Deferred Neurological: Normal speech, motor function intact, sensory function intact Musculoskeletal: Neck nontender, full range of motion, back nontender, full range of motion, Extremities: nontender, full range of motion Skin: Color pink, dry, no turgor, no rash, no lacerations, no abrasions, no cont usions. Lymphatic: Deferred Results (Laboratory/Radiology) Laboratory/Radiology Laboratory Tests Test 02/03/25 14:29 02/03/25 16:21 02/03/25 16:57 02/03/25 17:41 Sodium Level 132 mmol/L (136-145) L Potassium Level 4.5 mmol/L (3.5-5.1) Chloride Level 102 mmol/L (101-111) Carbon Dioxide Level 27 mmol/L (21-32) Blood Urea Nitrogen 12 mg/dL (7-18) Creatinine 1.2 mg/dL (0.5-1.3) Glomerular Filtration Rate Calc 73 mL/min (>90) Random Glucose 446 mg/dL (70-105) *H Total Calcium 8.7 mg/dL (8.5-10.1) Magnesium Level 1.60 mg/dL (1.80-2.40) L Total Creatine Kinase 114 U/L (21-232) # Troponin I High Sensitivity 52 ng/L (4-75) Urine Color LIGHT-YELLOW (YELLOW) Urine Appearance CLEAR (CLEAR) Urine pH 6.5 (5.0-8.0) Urine Specific [place] 1.026 (1.001-1.031) Urine Protein 200 mg/dL (NEGATIVE) H Urine Glucose (UA) >=1000 mg/dL (NEGATIVE) H Urine Ketones NEGATIVE mg/dL (NEGATIVE) Urine Occult Blood +- (TRACE) (NEGATIVE) H Urine Nitrate NEGATIVE (NEGATIVE) Urine Bilirubin NEGATIVE mg/dL (NEGATIVE) Urine Urobilinogen 0.2 mg/dL (0.2-1.0) Urine Leukocyte Esterase NEGATIVE Farheen/uL Urine RBC 2-5 /HPF (0-1) H Urine WBC 11-25 /HPF (0-1) H Urine Squamous Epithelial Cells RARE /HPF (0-2) Urine Bacteria None /HPF (None Seen) Urine Opiates Screen NEGATIVE (NEGATIVE) Urine Barbiturates Screen NEGATIVE (NEGATIVE) Urine Phencyclidine Screen NEGATIVE (NEGATIVE) Urine Amphetamines Screen NEGATIVE (NEGATIVE) Urine Benzodiazepines Screen NEGATIVE (NEGATIVE) Urine Cocaine Screen NEGATIVE (NEGATIVE) Urine Marijuana (THC) Screen NEGATIVE (NEGATIVE) White Blood Count 8.6 K/uL (4.8-10.8) Red Blood Count 5.26 MIL/uL (4.50-6.20) Hemoglobin 14.9 g/dL (14.0-18.0) Hematocrit 43.6 % (42-54) Mean Corpuscular Volume 82.9 fL (79-99) Mean Corpuscular Hemoglobin 28.3 pg (27.0-33.0) Mean Corpuscular Hemoglobin Concent 34.2 g/dL (32.0-36.0) Red Cell Distribution Width 12.8 % (11.0-15.5) Platelet Count 256 K/uL (130-400) Mean Platelet Volume 8.8 fL (7.5-10.5) Immature Granulocyte % (Auto) 0.5 % (0-1) Neutrophils (%) (Auto) 64.9 % (40.0-77.0) Lymphocytes (%) (Auto) 25.3 % (21.0-51.0) Monocytes (%) (Auto) 7.4 % (3.0-13.0) Eosinophils (%) (Auto) 1.3 % (0.0-8.0) Basophils (%) (Auto) 0.6 % (0.0-5.0) Neutrophils # (Auto) 5.6 K/uL (1.8-7.7) Lymphocytes # (Auto) 2.2 K/uL (1.0-4.8) Monocytes # (Auto) 0.6 K/uL (0.1-1.0) Eosinophils # (Auto) 0.11 K/uL (0.00-0.70) Basophils # (Auto) 0.05 K/uL (0.00-0.20) Absolute Immature Granulocyte (auto 0.04 K/uL (0-1) Nucleated Red Blood Cells 0.0 % (0.0-0.19) B-Type Natriuretic Peptide 223 pg/mL (0-100) H Whole Blood Glucose 345 MG/DL (70-110) H Bedside Glucose Comment Notified Nurse Test 02/03/25 19:00 Influenza Type A Antigen Negative For Type A Influenza Type B Antigen Negative For Type B SARS-CoV-2 Antigen (Rapid) PRESUMPTIVE NEGATIVE REASON: CP ORDERING PHYSICIAN: ADARSH ARAUZ MD PROCEDURE: CXR1VW - CHEST 1VW EXAM: CR Chest, 1 View. CLINICAL HISTORY: CP COMPARISON: 01/27 17:12 EST CR - CHEST 1VW FINDINGS: LUNGS: New mild diffuse bibasilar opacities which may represent bibasilar acute infectious process. PLEURAL SPACES: No evidence of pleural effusion or pneumothorax. MEDIASTINUM: The cardiomediastinal silhouette is within normal limits. BONES: No aggressive appearing osseous lesion seen. IMPRESSION: Suggestion for interval development of bibasilar opacities which may represent acute infectious process. Correlate clinically. /[facility] Labs Reviewed?: Yes EKG: (+) rhythm (Sinus rhythm) EKG Comment: Date:02/03/2025 Time:1407 Ventricular rate:82 CO interval:166 QRS duration:95 QT/QTc:395/460 EKG interpretation: Sinus rhythm, nonspecific T-wave abnormalities Reviewed by ED Attending no STEMI ED Course ED Course Orders Procedure Category Date Status Time Basic Metabolic Panel LAB 02/03/25 Complete 14:12 12 Lead Ekg Tracing- EKG 02/03/25 Logged Technical 14:12 Troponin I High LAB 02/03/25 Complete Sensitivity 14:12 Chest 1vw RAD 02/03/25 Resulted 14:12 Magnesium LAB 02/03/25 Complete 14:27 Creatine Kinase, Total LAB 02/03/25 Complete 14:27 Aspirin 325mg Tab PHA 02/03/25 Complete (Aspirin 325mg Tab) 14:30 Urinalysis Profile LAB 02/03/25 Complete 14:27 Drug Screen Urine LAB 02/03/25 Complete 14:27 Hydralazine 20mg Inj PHA 02/03/25 Complete (Apresoline 20mg In 14:30 Cbc With Differential LAB 02/03/25 Complete 14:47 B-Type Natriuretic LAB 02/03/25 Complete Peptide 16:11 0.9% Nacl 500ml PHA 02/03/25 Complete Iv.Soln (Ns 500ml 16:30 Insulin Regular, PHA 02/03/25 Complete Human 3ml (Humulin R 16:30 Magnesium 2gm Premix PHA 02/03/25 Complete 50ml (Magnesium 2gm 16:30 Culture Urine ELIANA 02/03/25 In Process 16:47 Blood Cult ELIANA 02/03/25 In Process 17:28 Covid19 (Sars Antigen LAB 02/03/25 Complete Rapid) 17:28 Influenza Type A & B, LAB 02/03/25 Complete Rapid 17:28 Doxycycline 100mg+Ns PHA 02/03/25 Complete 250ml (Doxycycline 17:30 Ipratropium/Albuterol PHA 02/03/25 Complete Neb (Duoneb) 17:30 Edm Admit Bridge Order ADM 02/03/25 Transmitted 18:26 Vital Signs(Adult CPOE 02/03/25 Transmitted Hospitalist) 19:25 I&O Q Shift CPOE 02/03/25 Transmitted 19:25 Acetaminophen 325 Tab PHA 02/03/25 In Process (Tylenol 325mg Tab 19:30 Acetaminophen 325 Tab PHA 02/03/25 In Process (Tylenol 325mg Tab 19:30 Ondansetron 4mg Inj PHA 02/03/25 In Process (Zofran 4mg Inj) 19:30 Guaifenesin-Dm PHA 02/03/25 In Process 200/20mg 10ml 19:30 Ipratropium/Albuterol PHA 02/03/25 In Process Neb (Duoneb) 22:00 Nurse To Enter Home CPOE 02/03/25 Transmitted Medication 19:25 Admit Orders ADM 02/03/25 Transmitted 19:25 Activity: Ad Ruth CPOE 02/03/25 Transmitted 19:25 Heart Healthy Diet DIET 02/04/25 Transmitted Breakfast Consistent Carb DIET 02/04/25 Transmitted Breakfast Famotidine 20mg Tab PHA 02/04/25 In Process (Pepcid 20mg Tab) 09:00 Enoxaparin Sodium 30 PHA 02/04/25 In Process Mg/0.3 Ml (Lovenox) 09:00 Ceftriaxone 1g Vial PHA 02/03/25 Complete (Rocephine 1g Inj) 19:30 Initiate KT 02/03/25 In Process Hyperglycemia Protoco 19:25 Insulin Regular, PHA 02/03/25 In Process Human 3ml (Humulin R 21:00 Initiate Hypoglycemia KT 02/03/25 In Process Protocol 19:25 Dextrose 50%-Water PHA 02/03/25 In Process (D50w) 19:30 Glucagon 1mg Kit PHA 02/03/25 In Process (Glucagon 1mg Kit) 19:30 Magnesium 2gm Premix PHA 02/03/25 In Process 50ml (Magnesium 2gm 19:30 Initiate Po KT 02/03/25 In Process Hypokalemia Protoc 19:25 Potassium Chloride PHA 02/03/25 In Process 20meq/100ml ([place] 19:30 Potassium Chl 10% PHA 02/03/25 In Process Elixir 20meq (Kcl 10% 19:30 Potassium Chloride PHA 02/03/25 In Process 20meq Er (K-Dur/Klor- 19:30 Notify Physician If CPOE 02/03/25 Transmitted There Is 19:25 Notify Md On The Next CPOE 02/03/25 Transmitted 19:25 Notify Md On The CPOE 02/03/25 Transmitted Next(Cont.) 19:25 Aspirin 81mg Ec Tab PHA 02/04/25 In Process (Aspirin 81mg Ec Tab 09:00 Troponin I High LAB 02/03/25 Logged Sensitivity 19:25 Troponin I High LAB 02/04/25 Verified Sensitivity 01:25 Troponin I High LAB 02/04/25 Verified Sensitivity 07:25 Lipid Panel LAB 02/04/25 Verified 04:00 Hemoglobin A1c LAB 02/04/25 Verified 04:00 Cbc With Differential LAB 02/04/25 Verified 04:00 Comprehensive LAB 02/04/25 Verified Metabolic Panel 04:00 Magnesium LAB 02/04/25 Verified 04:00 Ekg Prn For Chest Pain CPOE 02/03/25 Transmitted 19:25 Ceftriaxone 2gm Vial PHA 02/03/25 In Process (Rocephin 2gm Inj) 20:00 Vital Signs Date Time Temp Pulse Resp B/P (MAP) Pulse Ox O2 Delivery O2 Flow Rate FiO2 02/03/25 19:20 83 20 02/03/25 18:55 97.7 77 18 157/71 97 Room Air* 0 02/03/25 16:30 98.2 75 18 144/72 96 Room Air* 0 02/03/25 15:15 98.2 75 18 144/74 96 Room Air* 0 02/03/25 14:45 98.2 80 19 178/96 96 Room Air* 0 02/03/25 14:30 75 144/74 02/03/25 14:10 89 18 192/90 94 Room Air* 0 02/03/25 14:05 98.2 84 18 187/98 98 Room Air 0 HEART Score Response (Comments) Value History: Moderate suspicion (+1) 1 EKG: Normal 0 Age: 45-65yrs (+1) 1 Risk Factors: 1-2 risk factors (+1) 1 Initial Troponin: Normal limit (0) 0 Total 3 Medical Decision Making MDM MDM: The patient is a 50-year-old male with a history of COPD, diabetes, hyperlipidemia, hypertension, CHF who presents to the emergency department with complaints of shortness of breath, chest pain onset two weeks ago. Patient was just admitted here last week for chest pain and uncontrolled diabetes but he left AMA. Patient reports cough and congestion. Patient poor historian did not answer all the questions asked. CBC showed no leukocytosis, no anemia, chemistry showed elevated blood glucose, negative troponin, slightly elevated BNP, hypomagnesemia. Chest x-ray revealed lower lung opacities. Patient will be started on antibiotics and readmitted to the hospital. Patient agreed to stay in the hospital this time. Patient otherwise in no acute distress, stable vital signs Differential diagnosis: ACS, dehydration, pneumonia, pneumothorax, COPD exacerbation Comorbidities: COPD, diabetes, hyperlipidemia, hypertension, fibromyalgia Tests considered and not ordered secondary to shared decision making include: none Previous outside records reviewed: none Risk of complication and/or morbidity or mortality of patient management: The patient meets criteria for admission. Need for emergency major/minor surgery: No There are no social concerns with this patient. I independently interpreted the tests I ordered (labs, urinalysis, etc.). I discussed the case with the hospitalist for admission. Kim who accepts admission I discussed the case with the following specialists: none. Historian: pateint. I independently interpreted imaging studies and EKGs that I ordered (US, CT, XR, EKG, etc.). External chart review: none. Medical management and examination interpretation discussions were had by me with other qualified healthcare professionals as indicated for the patient's care. DX & DISP Disposition: Inpatient Decision to Admit Date: Feb 03, 2025 Decision to Admit Time: 18:26 Departure Impression: Primary Impression: Pneumonia Additional Impressions: Chest pain, Uncontrolled diabetes mellitus with hyperglycemia, Hypomagnesemia Condition: Stable Referrals: BINTA RUIZ (PCP) I have reviewed the case, and I agree with, Diagnosis and Plan SUZANNE CONDE Feb 03, 2025 20:01
[2025-02-03 21:19] VITALS: BP 145/79; PULSE 77; RESP 17; TEMP 98.6; O2SAT 98
--- NOTE | 2025-02-03 22:28 | NUR ---
PATIENT DECIDES TO LEAVE AMA, DID NOT WANT TO BE ADMITTED. NEWSPAPER PHOTO EDITOR MADE AWARE. Jourdan SUTTON NP MADE AWARE. PATIENT REFUSED TO SIGN AMA FORM
[2025-02-04] MEDS ORDERED: ASPIRIN 81 MG EC TAB PO SCH (09:00)
[2025-02-04] MEDS ORDERED: FAMOTIDINE 20MG TAB PO SCH (09:00)
[2025-02-04] MEDS ORDERED: ENOXAPARIN SODIUM 30 MG/0.3 ML SQ SCH (09:00)
--- NOTE | 2025-02-04 11:19 | EKG ---
[facility] Test Date: 2025-02-03 Test Time: 14:07:14 Pat Name: ANDERS HANCOCK Department: [facility] Room: 326 1 Gender: M [employer] Support Specialist: [id number] [phone] [id number] Requested By: ADARSH ARAUZ Order Number: [id number] Reading MD: Modesta Gallo Measurements Intervals [place] Rate: 82 P: 38 IN: 166 QRS: -47 QRSD: 95 T: 134 QT: 395 QTc: 460 Interpretive Statements Sinus rhythm Inferior infarct, old Nonspecific T abnormalities, lateral leads Compared to ECG 01/28/2025 11:16:14 ST (T wave) deviation no longer present Myocardial infarct finding still present T-wave abnormality still present Electronically Signed On 02-07-2025 08:51:31 OUTSOLE FLEXER by Modesta Gallo Please click the below link to view image of tracing.
== END 2025-02-03 22:33 | disposition left against medical advice (07) | DRG 190 ==
LOC: EDH 14:04 → EDHIP 14:05 → 3DH 22:11
PROVIDERS: ADMIT Internal Medicine; ATTEND Internal Medicine
DX: J44.1 Chronic obstructive pulmonary disease with (acute) exacerbation (principal); J18.9 Pneumonia, unspecified organism; I11.0 Hypertensive heart disease with heart failure; J44.0 Chronic obstructive pulmonary disease with (acute) lower respiratory infection; E11.65 Type 2 diabetes mellitus with hyperglycemia; F32.A Depression, unspecified; Z59.00 Homelessness unspecified; F17.210 Nicotine dependence, cigarettes, uncomplicated; E83.42 Hypomagnesemia; Z53.29 Procedure and treatment not carried out because of patient's decision for other reasons; E78.00 Pure hypercholesterolemia, unspecified; Z79.82 Long term (current) use of aspirin; Z82.49 Family history of ischemic heart disease and other diseases of the circulatory system
CPT/HCPCS: 36415; 71045; 80048; 80305; 81001; 82550; 82948; 83735; 83880; 84484; 85025; 87040; 87086; 87186; 87426; 87804; 93005; 94640; G0378; J0360; J0696; J1815; J3490; J7040